=== PATIENT | female | born 1950 | race Caucasian/White ===

== ENCOUNTER 2018-04-26 11:00 | Outpatient (RCR) | payer MEDICARE, SELFPAY ==
--- NOTE | 2018-06-29 15:42 | COCO.CNN ---
Primary Reason for Visit Medical/Dental/Vision (DSMES (Visit date 04/26/18 3rd floor [facility] - CGM placement) Referral to Care Coordination Referral to Care Coordination: No Referral to Services: No - Referral From Referral From: PCP Care Plan - Plan of Care Assessment/Background: ASESSMENT: Karie comes today to begin 7-day CGM trial. Instructed on purpose of CGM therapy, which will display blood glucose trends, rates of change, and alert to hypo/hyperglycemia. . INTERVENTION: We have set the low-alarm for 80mg/dl and the high for 400mg/dl. She understands that bolus dosing should stll be based on finger-stick monitoring. Potential risks of therapy noted; and she is cautioned that acetaminophen products make results unreliable. Karie is in agreement to proceed; waiver signed. G4 sensor placed on R abdomen according to protocol. No bleeding or adverse effects noted. Counseled on daily site inspection and steps for recharging the robotics technologist. Discussed useful record keeping. She returns demo of required calibrations using the robotics technologist. Plan of Care: PLAN: Karie will wear the CGM for 7 days. She will record daily events on her paper log. She will return in 1wk for CGM removal and download. [facility] Self Management Goals: document events in paper log during the course of the CGM study. Calibrate CGM using 2 finger-stick BSs in 24hrs. Confidence Level (enter 1-10): 7
== END 2018-06-29 11:00 ==
LOC: COCO 11:00
PROVIDERS: PCP Family Medicine; Visit Provider Family Medicine
DX: E11.9 Type 2 diabetes mellitus without complications (principal)

== ENCOUNTER → 2018-06-01 19:01 | Outpatient (REF) | payer MEDICARE, SELFPAY ==
[2018-06-01 19:54] LABS: ALT 29 U/L (12-78); AST 30 U/L (15-37); Albumin 3.6 g/dL (3.4-5.0); Alkaline Phosphatase 159 U/L (46-116); Anion Gap 8.6 mmol/L (3-11); BUN 21 mg/dL (7-18); Bilirubin, Total 0.2 mg/dL (0.2-1.0); CO2 28.4 mmol/L (21.0-32.0); Calcium 9.1 mg/dL (8.5-10.1); Chloride 96 mmol/L (98-107); Estimated GFR 55.64 (mL/min/1.73m2); Glucose 290 mg/dL (70-100); Sodium 133 mmol/L (136-145); Total Protein 7.5 g/dL (6.4-8.2)
[2018-06-01 20:09] LABS: HGB 13.5 g/dL (12.0-15.5); Mean Corp. HGB Concentration 33.8 g/dL (32.0-36.0); Mean Corpuscular Hemoglobin 30.8 pg (27.0-33.0); Mean Corpuscular Volume 91.1 fL (80-95); Mean Platelet Volume 10.5 fL (8.0-11.0); Platelet Count 228 x1000/uL (130-400); RBC 4.39 m/cumm (4.00-5.20); RBC Distribution Width 12.6 % (11.7-14.6); White Blood Cell Count 9.61 k/cumm (4.4-10.8)
== END ==
LOC: NCHCN 19:01
PROVIDERS: PCP Family Medicine; Visit Provider Physician Assistant Medical
DX: E11.8 Type 2 diabetes mellitus with unspecified complications (principal); E03.9 Hypothyroidism, unspecified
CPT/HCPCS: 80053; 85027; 84443

== ENCOUNTER 2019-06-20 01:55 | Outpatient (CLI) | payer MEDICARE, SELFPAY ==
--- NOTE | 2019-06-20 12:50 | DI.RAD_ITS ---
SYMPTOMS/DIAGNOSIS: CHRONIC PAIN, G89.29 PELVIS AND BILATERAL HIPS: Five views. Comparison is 04/12/16. The hip joints are well maintained. The sacroiliac joints and symphysis pubis appear unremarkable. The bones are normally mineralized. Vascular calcifications are seen in the soft tissues. IMPRESSION: Negative bilateral hips. LUMBAR SPINE: AP, lateral and bilateral oblique views of the lumbar spine were obtained. There is normal alignment of the lumbar spine. No spondylolysis or spondylolisthesis is present. There is disc space narrowing seen at L1-L2 and L2-L3. There are endplate osteophytes throughout the lumbar spine, most marked from L1-L2 through L3-L4. There are degenerative changes of the facets, particularly at the L5-S1 level. No acute fractures or subluxations are present. There is atherosclerosis of the abdominal aorta with ectasia of the distal abdominal aorta. IMPRESSION: Moderately severe degenerative changes of the lumbar spine.
== END 2019-06-20 02:15 ==
PROVIDERS: PCP Family Medicine; Visit Provider Family Medicine
DX: M25.551 Pain in right hip (principal); M25.552 Pain in left hip; M54.5 Low back pain; M51.36 Other intervertebral disc degeneration, lumbar region; M47.816 Spondylosis without myelopathy or radiculopathy, lumbar region
CPT/HCPCS: 73521; 72110

== ENCOUNTER 2019-07-25 10:13 | Outpatient (REF) | payer MEDICARE, SELFPAY ==
[2019-07-25 21:27] LABS: HCT 37.8 % (36.0-46.0); HGB 12.6 g/dL (12.0-15.5); Mean Corp. HGB Concentration 33.3 g/dL (32.0-36.0); Mean Corpuscular Hemoglobin 30.1 pg (27.0-33.0); Mean Corpuscular Volume 90.2 fL (80-95); Platelet Count 275 x1000/uL (130-400); RBC 4.19 m/cumm (4.00-5.20); RBC Distribution Width 13.2 % (11.7-14.6); White Blood Cell Count 9.35 k/cumm (4.4-10.8)
[2019-07-25 21:46] LABS: ALT 28 U/L (14-59); AST 17 U/L (15-37); Albumin 3.6 g/dL (3.4-5.0); Alkaline Phosphatase 145 U/L (46-116); Anion Gap 9.2 mmol/L (3-11); BUN 18 mg/dL (7-18); Bilirubin, Total 0.4 mg/dL (0.2-1.0); CO2 27.8 mmol/L (21.0-32.0); CREATININE 1.11 mg/dL (0.55-1.02); Calcium 9.2 mg/dL (8.5-10.1); Chloride 96 mmol/L (98-107); Estimated GFR 49.18 (mL/min/1.73m2); Glucose 278 mg/dL (70-100); Potassium 4.2 mmol/L (3.5-5.1); Sodium 133 mmol/L (136-145); TSH (W/Ref FT4) 2.24 uIU/mL (0.36-3.74); Total Protein 7.3 g/dL (6.4-8.2)
[2019-07-25 21:55] LABS: Hemoglobin A1C 9.1 % (4.5-6.2)
== END 2019-07-25 10:33 ==
LOC: NCHCN 10:13
PROVIDERS: PCP Family Medicine; Visit Provider Family Medicine
DX: E11.9 Type 2 diabetes mellitus without complications (principal); E03.9 Hypothyroidism, unspecified; I10 Essential (primary) hypertension; Z86.2 Personal history of diseases of the blood and blood-forming organs and certain disorders involving the immune mechanism
CPT/HCPCS: 80053; 85027; 83036; 84443

== ENCOUNTER 2019-08-06 01:41 | Outpatient (CLI) | payer MEDICARE, SELFPAY ==
--- NOTE | 2019-08-06 09:10 | DI.MRI_ITS ---
EXAM: MR LUMBAR SPINE WO CLINICAL HISTORY: CHRONIC PAIN, G89.29, SPINAL STENOSIS OF LUMBAR REGION, M48.06. TECHNIQUE: Multiplanar multisequence MRI was performed. COMPARISON: MRI - LUMBAR SPINE WO CONTRAST from 09/13/2012 FINDINGS: Disc narrowing and broad-based disc osteophytes are again noted L1-2 and L2-3. There is bilateral neural foraminal narrowing as well as mild central canal stenosis at these levels. At L3-4, there is broad-based disc bulging and mild facet degenerative changes. There is mild neural foraminal narrow ing and mild central canal stenosis. At L4-5, there is broad-based disc bulging. There are facet deg enerative changes and ligamentous hypertrophy combining to produce mild central canal stenosis. Ther e is no significant neural foraminal narrowing. At L5-S1, there is mild disc bulging. There is no s ignificant central canal stenosis. There are small osteophytes and facet joint osteophytes on the ri ght side causing mild right neural foraminal narrowing. The conus medullaris is unremarkable. The ao rta is normal in diameter. There are degenerative signal changes in the marrow. IMPRESSION: Stable degenerative disc changes and facet degenerative changes throughout. There is bilateral neur al foraminal narrowing greatest at L1-2 and L2-3 and central canal stenosis which is greatest at L4, mild.
== END 2019-08-06 02:01 ==
PROVIDERS: PCP Family Medicine; Visit Provider Family Medicine
DX: M48.061 Spinal stenosis, lumbar region without neurogenic claudication (principal); G89.29 Other chronic pain; M51.37 Other intervertebral disc degeneration, lumbosacral region; M47.817 Spondylosis without myelopathy or radiculopathy, lumbosacral region
CPT/HCPCS: 72148

== ENCOUNTER 2020-03-24 01:10 | Outpatient (CLI) | payer MEDICARE, SELFPAY ==
--- NOTE | 2020-03-24 11:40 | DI.MAMMO_ITS ---
EXAM: MAMMO SCREENING CLINICAL HISTORY: SCREENING, Z12.39 TECHNIQUE: Mammograms were interpreted according to the usual protocol including computer analysis w [employer] CAD system, tomosynthesis and C-view imaging. COMPARISON: 2010 through 2013 FINDINGS: The breasts are composed of scattered fibroglandular densities, Breast Density category B. No suspicious masses or suspicious microcalcifications are seen. Vascular calcifications are inciden tally noted. No skin thickening or abnormal axillary lymph nodes are seen. There has been no significant change from prior exams. IMPRESSION: BI-RADS category 1, yearly screening mammography is recommended. Breast density category B, scattered fibroglandular densities.
== END 2020-03-24 01:30 ==
PROVIDERS: PCP Family Medicine; Visit Provider Family Medicine
DX: Z12.31 Encounter for screening mammogram for malignant neoplasm of breast (principal)
CPT/HCPCS: 77063; 77067

== ENCOUNTER 2020-06-09 16:14 | Outpatient (REF) | payer MEDICARE, SELFPAY ==
[2020-06-09 19:49] LABS: Hemoglobin A1C 10.6 % (3.8-5.6)
[2020-06-09 19:54] LABS: ALT 34 U/L (14-59); AST 24 U/L (15-37); Albumin 3.7 g/dL (3.4-5.0); Alkaline Phosphatase 173 U/L (46-116); Anion Gap 9.8 mmol/L (3-11); BUN 27 mg/dL (7-18); Bilirubin, Total 0.4 mg/dL (0.2-1.0); CO2 28.2 mmol/L (21.0-32.0); CREATININE 1.25 mg/dL (0.55-1.02); Calculated LDL 72 mg/dL (<100); Chloride 94 mmol/L (98-107); Cholesterol 175 mg/dL (<200); Estimated GFR 42.75 (mL/min/1.73m2); Glucose 340 mg/dL (74-106); HDL Cholesterol 40 mg/dL (40-60); Sodium 132 mmol/L (136-145); TSH (W/Ref FT4) 1.83 uIU/mL (0.36-3.74); Total Protein 7.3 g/dL (6.4-8.2); Triglyceride 319 mg/dL (<150)
== END 2020-06-09 16:34 ==
LOC: NCHCN 16:14
PROVIDERS: PCP Family Medicine; Visit Provider Family Medicine
DX: E11.9 Type 2 diabetes mellitus without complications (principal); E78.5 Hyperlipidemia, unspecified; I10 Essential (primary) hypertension; E03.9 Hypothyroidism, unspecified
CPT/HCPCS: 80053; 80061; 83036; 84443

== ENCOUNTER → 2020-07-13 10:48 | Outpatient (BNVA) | payer MEDICARE, SELFPAY | PROVIDERS: PCP Family Medicine; Referring Provider Family Medicine; Visit Provider Student in an Organized Health Care Education/Training Program | DX: M70.62 Trochanteric bursitis, left hip (principal) | CPT/HCPCS: 99203; 99214 ==

== ENCOUNTER 2020-09-11 11:12 | Outpatient (REF) | payer MEDICARE, SELFPAY ==
[2020-09-11 20:23] LABS: Anion Gap 9.7 mmol/L (3-11); BUN 24 mg/dL (7-18); CO2 28.3 mmol/L (21.0-32.0); CREATININE 1.01 mg/dL (0.55-1.02); Calcium 9.3 mg/dL (8.5-10.1); Chloride 97 mmol/L (98-107); Estimated GFR 54.51 (mL/min/1.73m2); Glucose 274 mg/dL (74-106); Sodium 135 mmol/L (136-145)
[2020-09-11 20:43] LABS: Hemoglobin A1C 9.6 % (<5.7)
== END 2020-09-11 11:32 ==
LOC: NCHCN 11:12
PROVIDERS: PCP Family Medicine; Visit Provider Family Medicine
DX: E11.9 Type 2 diabetes mellitus without complications (principal); N28.9 Disorder of kidney and ureter, unspecified; M54.16 Radiculopathy, lumbar region
CPT/HCPCS: 80048; 83036

== ENCOUNTER → 2020-09-14 10:07 | Outpatient (BNVA) | payer MEDICARE, SELFPAY | PROVIDERS: PCP Family Medicine; Referring Provider Family Medicine; Visit Provider Student in an Organized Health Care Education/Training Program | DX: M70.62 Trochanteric bursitis, left hip (principal); E11.69 Type 2 diabetes mellitus with other specified complication; I10 Essential (primary) hypertension | CPT/HCPCS: 20610; 99213; J1040 ==

== ENCOUNTER 2021-04-05 16:37 | Inpatient (IN) | payer MEDICARE, SELFPAY ==
[2021-04-05] VITALS (49 sets, daily range): BP systolic 94–181; BP diastolic 49–96; PULSE 73–83; RESP 12–28; TEMP 36.5–36.7; O2SAT 94–98
--- NOTE | 2021-04-05 16:30 | RT.EKG_ITS ---
APPROVED REPORT Exam: Resting ECG Reason for Exam: fall Patient Location: E HR:81 bpm ECG Measurements Heart Rate 81 AXIS KS 168 P 4 QRSd 119 QRS 15 QT 407 T 10 QTc 473 Conclusion Sinus rhythm...normal P axis, V-rate 60- 99 Probable left ventricular hypertrophy...(RaVL+SV3)xQRSd >300 Lateral infarct, age indeterminate...Q>35mS, T neg, V5-V6 I aVL I have reviewed and interpreted ECG and agree with software generated interpretation.
--- NOTE | 2021-04-05 16:30 | DI.RAD_ITS ---
Exam(s) XR CHEST 2V PA LATERAL EXAM: XR CHEST 2V PA LATERAL CLINICAL HISTORY: fall TECHNIQUE: 2D digital imaging was performed. COMPARISON: CR RIGHT SHOULDER COMPLETE from 02/07/2018 CR CHEST 2 VIEWS PA,LAT from 02/07/2018 FINDINGS: MEDIASTINUM: Normal. HEART: Normal. PULMONARY VASCULATURE: Normal. LUNGS: Stable areas of scarring are seen in the lungs best appreciated on the lateral view. No acute infiltrate is seen. PLEURAL SPACE: No pleural effusion or pneumothorax. There is stable elevation of the right hemidiaphr agm. BONE:Within normal limits for the patient's age. OTHER FINDINGS:Surgical clips are again seen in the right upper quadrant of the abdomen. IMPRESSION: 1. No acute pulmonary findings. 2. Stable scarring in the lung bases. DATA REPOSITORY: RADIATION DOSE DELIVERED:
--- NOTE | 2021-04-05 16:30 | DI.CT_ITS ---
Exam(s) CT HEAD WO EXAM: CT HEAD WO CLINICAL HISTORY: fall, struck head, anticoagulated. TECHNIQUE: Imaging Protocol: Axial computed tomography images with coronal and sagittal reformatted images were created and reviewed COMPARISON: No exams were available for comparison FINDINGS: Ventricles and Extra axial spaces: Normal in size and morphology for the patient's age. Hemorrhage: None. Cerebral parenchyma: There is an area of encephalomalacia in the left frontal lobe. No evidence of a n acute territorial infarct. There are areas of decreased attenuation in the white matter most consi stent with chronic microvascular ischemic disease. Midline shift: None. Brainstem/Cerebellum: Normal. Calvarium: Normal. Visualized Paranasal sinuses/Mastoids: Clear. Soft Tissues: Unremarkable. IMPRESSION: No acute intracranial process. RADIATION DOSE DELIVERED: 676.57mGy.cm Total DLP DATA REPOSITORY: All CT scans at this facility are submitted to the National Radiology Data Registry (NRDR) Dose Index Registry (DIR) with the [employer] (ACR). RADIATION OPTIMIZATION: All CT scans at this facility use at least one of these dose optimization te chniques: automated exposure control; mA and/or kV adjustment per patient size (includes targeted exa ms where dose is matched to clinical indication); or iterative reconstruction.
--- NOTE | 2021-04-05 16:48 | ED.GENADUL_ITS ---
Discharge Plan Disposition Patient Disposition: [facility] INPATIENT Condition: Fair Discharge Details Chief Complaint: GenMedical Clinical Impression: Ambulatory dysfunction, Trochanteric bursitis, left hip, Diabetes Admit Date/Time: 04/07/21 11:44 Admit Provider: Jaime Pollock Attending Provider: Jaime Pollock Primary Care Provider: Melodie Lay V ED Provider: Radha Mercer Discharge Instructions Activity:: Activity as Tolerated Equipment/Supplies:: Insulin and needles Diet:: Carb Counting Discharge Orders Discharge Orders: Discharge Order (Routine); Ordered 04/08/21 Ordered By: Ana Min Discharge Data Discharge Date/Time-TO BE ENTERED AT DEPARTURE: 04/05/21 21:52 Medical Decision Making Patient is a 70-year-old female brought in via EMS after multiple falls. Patient reports she fell last night and believes that she may have lost consciousness. States she subsequently fell twice today with no LOC. Unclear what is causing the falls. She denies any shortness of breath, palpitations, chest pain. States that she is otherwise feeling well. Patient lives with her . Past medical history pertinent for anemia, hypertension, diabetes, CVA, depression, hyperlipidemia, GERD, hypothyroidism, renal insufficiency, syncope with collapse. Per EMS report, patient's glucose was high. Patient does report that she had a recent change in her medications but this is fairly vague about this. Unclear when she last took any of her medications. Since that medication change finding base. Will contact primary care for further information. Patient is not noted to be tachypneic, short of breath, endorsing any active complaints. On exam, patient appears nontoxic. She is resting comfortably. She is noted to be hypertensive blood pressure 179/78. Vital signs otherwise within normal limits. I see no objective evidence of trauma on her head. Moving all of her extremities well. Lungs are clear. She does have some atrophy on the right hand. None noted in intraorally or elsewhere. This may be associated with blood pressure cuff being on that arm. Abdomen is benign. No murmurs rubs or gallops appreciated. No lower extremity edema, calves are soft and nontender. Pulses in all extremities. For further evaluation of both the multiple falls as well elevated glucose. Concern at this time for DKA, HHS, intracranial bleed, cardiovascular cause of multiple falls, metabolic disorder, infectious etiology versus other. Spoke with patient's , Leighton [phone]. He states that, she just went down. He reports she did not hit her head. He states that she had no LOC. He does not have further information to add, reports she has otherwise been well. EKG was obtained and reviewed by Dr. Godfrey. Patient is in a normal sinus rhythm with a rate of 81. No acute ischemic changes noted. FINDINGS: Lungs: Strands of atelectasis or fibrosis in lower lungs appears similar to 02/07/2018. Pleural spaces: Unremarkable. No pleural effusion. No pneumothorax. Heart/Mediastinum: Unremarkable. No cardiomegaly. Diaphragm: Elevated right hemidiaphragm. Bones/joints: Degenerative arthritis in the spine and shoulders. Intraperitoneal space: Surgical clips right upper quadrant. IMPRESSION: No appreciable change from 02/07/2018. Strands of atelectasis or fibrosis in the lower lungs FINDINGS: Brain: Area of encephalomalacia in the left frontal lobe consistent with old infarct. The degree of encephalomalacia has progressed since 07/24/2017 but the distribution is the same. Stable vague areas of low-density in the periventricular white matter both cerebral hemispheres. No intra-axial extra-axial mass or hemorrhage. Cerebral ventricles: No ventriculomegaly. Paranasal sinuses: Visualized sinuses are unremarkable. No fluid levels. Mastoid air cells: Visualized mastoid air cells are well aerated. Vasculature: Vascular calcifications. Bones/joints: Unremarkable. No acute fracture. Soft tissues: Unremarkable. IMPRESSION: 1. No acute findings 2. Progression of encephalomalacia in the left frontal lobe at site previous infarcts seen on Labs reviewed. No leukocytosis. Stable H&H. Sodium is low at 123 but secondary to patient's hyperglycemia, this does correct to 131. VBG was normal, no evidence to suggest DKA at the time. Will give the patient typically scheduled NovoLog and continue to monitor. Patient's glucose is down to 472. Attempted to ambulate the patient. She is able to ambulate but does need one test as she is slightly unsteady. 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 Consulted with Dr. Pollock who agrees to admission. Discussed plan at length witht epatient. She agrees to admission. HPI General Mode of arrival: EMS . Date/Time Provider Initiated Documentation: 04/05/21 17:04 . Limitations to Documentation: no limitations . Information obtained by: patient, family (spoke with ), EMS and RN notes reviewed . History of Present Illness 70 year old F presents to the emergency department with the chief complaint of falls, high glucose, described as moderate (fall x 3), with intensity rated at 1 (denies any pain currently). Patient started experiencing this day(s) (began last night) and it has been intermittent. No relieving factors improve symptom(s), No exacerbating factors reported . Patient notes syncope (believes she lost consciousness last night, remembers events today); denies chest pain, cough, diaphoresis, fever/chills, loss of appetite, nausea/vomiting, rash, shortness of breath and weakness. Patient did receive the following treatments prior to arrival, none Related Data Home Medications Medication Instructions Recorded Confirmed bupropion HCl [Wellbutrin XL] 150 mg PO DAILY tab-cap 07/12/17 04/05/21 calcium carbonate [Oyster Shell 500 mg PO BID tab-cap 07/12/17 09/14/20 Calcium 500] ferrous sulfate 325 mg PO DAILY tab-cap 07/12/17 04/05/21 hydrochlorothiazide 25 mg PO DAILY tab-cap 07/12/17 04/05/21 omeprazole magnesium [Prilosec OTC] 20 mg PO DAILY tab-cap 07/12/17 04/06/21 atorvastatin [Lipitor] 40 mg PO QPM #60 tab 07/27/17 04/05/21 multivitamin [Multiple Vitamins] 1 tab PO DAILY tab 07/27/17 09/14/20 aspirin 81 mg PO DAILY 09/04/19 04/05/21 cholecalciferol (vitamin D3) 1,000 unit PO BID 09/04/19 04/05/21 [Vitamin D3] clopidogrel [Plavix] 75 mg PO DAILY 09/04/19 04/05/21 ezetimibe [Zetia] 10 mg PO DAILY 09/04/19 04/05/21 gabapentin 300 mg PO TID 09/04/19 04/05/21 lisinopril 10 mg PO DAILY 09/04/19 04/05/21 diclofenac sodium 1 % topical gel 4 gm TP QID PRN 6 Days #100 gm 09/12/19 04/05/21 amitriptyline 100 mg tablet 150 mg PO QHS tab-cap 07/13/20 04/05/21 metformin [Glucophage] 1,000 mg PO BID 10/06/20 04/05/21 insulin glargine [Semglee U-100 25 unit SUBCUT BID #10 ml 04/08/21 Insulin] Previous Rx's Medication Instructions Recorded atorvastatin [Lipitor] 40 mg PO QPM #60 tab 07/27/17 multivitamin [Multiple Vitamins] 1 tab PO DAILY tab 07/27/17 diclofenac sodium 1 % topical gel 4 gm TP QID PRN 6 Days #100 gm 09/12/19 insulin glargine [Semglee U-100 25 unit SUBCUT BID #10 ml 04/08/21 Insulin] Allergies Allergy/AdvReac Type Severity Reaction Status Date / Time morphine Allergy Severe Hives Unverified 04/05/21 16:52 insulin detemir Allergy Intermediate Unverified 04/05/21 16:52 [From Levemir U-100 Insulin] Review of Systems Constitutional Constitutional: Reports as per HPI, Denies chills, Denies fever(s), Reports frequent falls, Denies headache(s), Denies lethargy and Denies poor appetite Eyes Eyes: Denies change in vision ENT Ears, Nose, Mouth, and Throat: Denies dizziness and Denies headache(s) Cardiovascular Cardiovascular: Reports as per HPI, Denies dyspnea and Denies dyspnea on exertion Respiratory Respiratory: Reports as per HPI, Denies chest congestion, Denies cough, Denies pain on inspiration, Denies pain with cough, Denies dyspnea, Denies dyspnea on exertion and Denies wheezing Gastrointestinal Gastrointestinal: Reports as per HPI, Denies abdominal pain, Denies diarrhea, Denies nausea and Denies vomiting Musculoskeletal Musculoskeletal: Reports as per HPI and Denies back pain Integumentary/Breasts Skin/Breast: Reports as per HPI and Denies rash Neurologic Neurologic: Reports as per HPI, Denies dizziness, Reports frequent falls, Denies headache(s), Denies localized weakness and Denies sensory deficit Allergic/Immunologic Allergic/Immunologic: Denies wheezing [facility] Medical History Carpal tunnel syndrome, bilateral Chronic pain Depression, major Diabetes mellitus adult onset Diastolic dysfunction Epicondylitis H/O fall H/O gastroesophageal reflux (GERD) Heart murmur, systolic History of anemia History of CVA (cerebrovascular accident) Hypothyroid Insomnia Lumbar radiculopathy Nonorganic sleep disorder Renal insufficiency Right shoulder pain Spinal stenosis Syncope and collapse Trochanteric bursitis, left hip Trochanteric bursitis, right hip Weakness of right arm Surgical History H/O: hysterectomy History of cholecystectomy Social History Smoking/Tobacco Use Status: Former Tobacco Use Smoking risk assessment performed?: Yes Alcohol Intake: never Drug use: Never Household members: spouse Housing: house Current gender identity: female Gayatri/Quaker: Methodist Do you feel safe at home: Yes Do you feel safe in your relationship?: Yes Exam Const General: cooperative, comfortable, no acute distress, well developed and ill appearing chronically Nutritional Appearance: well nourished and overweight Orientation: alert, awake and oriented x3 HENMT Head: normal to inspection Ears: hearing grossly normal bilaterally Mouth: moist mucous membranes Chest Chest: normal inspection of the chest, normal palpation of entire chest wall and no crepitus Resp Effort & Inspection: normal respiratory effort, able to speak in complete sentences and no respiratory distress Auscultation: clear to auscultation bilaterally, no rales, no rhonchi and no wheezes Cardio Rate: regular rate Rhythm: regular rhythm Heart Sounds: S1 normal and S2 normal GI Inspection: normal to inspection, no edema and non-distended Palpation: soft, no hepatosplenomegaly, not firm, no guarding, not rigid and nontender Auscultation: normal bowel sounds Back/Spine/Pelvis Thoracic/Lumbar Spine: thoracic and lumbar spine normal to inspection Skin General skin exam: no rashes or lesions noted Trauma: no lacerations or abrasions Neuro General: patient alert, patient awake and patient oriented x3 Cognition: normal cognition Speech: speech normal Gait: normal gait Extrem General: normal to inspection, capillary refill normal, no pedal edema, no calf tenderness and normal gait Psych Appearance: grossly normal and well kempt Mental Status: mental status grossly normal Speech and Movement: speech and movement normal
[2021-04-05 17:00] LABS: BE (Venous) 1 mmol/L (-2-3); HCO3 (Venous) 26 mmol/L (23-28); O2 Sat (Venous) 91 %; TCO2 (Venous) 24 mmol/L (24-29); pCO2 (Venous) 44 mmHg (41-51); pH (Venous) 7.38 (7.31-7.41); pO2 (Venous) 61 mmHg
[2021-04-05 17:09] LABS: Abs Immature Grans 0.04 10^3/uL (0.0-0.06); Absolute Basophil Count 0.04 10^3/uL (0.0-0.2); Absolute Eosinophil Count 0.12 10^3/uL (0.0-0.7); Absolute Lymphocyte Count 2.64 10^3/uL (1.2-3.4); Absolute Monocyte Count 0.66 10^3/uL (0.1-0.8); Absolute Neutrophil Count 7.29 10^3/uL (1.2-6.7); Basophils % 0.4; Eosinophils % 1.1; HCT 34.3 % (36.0-46.0); HGB 12.2 g/dL (11.2-15.7); Immature Grans % 0.4; Lymphocytes % 24.5; MCH 30.5 pg (27.0-33.0); MCHC 35.6 % (32.0-36.0); MCV 85.8 fL (80-95); MPV 9.7 fL (8.0-11.0); Monocytes % 6.1; Neutrophils % 67.5; Nucleated RBC 0 %; Platelet Count 197 10^3/uL (130-400); RDW 11.9 % (11.7-14.6); RDW-SD 37.2 fL; WBC 10.79 10^3/uL (4.4-10.8)
[2021-04-05 17:16] LABS: INR 1.1 (0.9-1.1); PTT Activated 22.7 sec (21.0-27.5); Prothrombin Time 10.9 sec (9.3-11.0)
[2021-04-05 17:26] LABS: ALT 34 U/L (14-59); AST 25 U/L (15-37); Albumin 3.5 g/dL (3.4-5.0); Alkaline Phosphatase 161 U/L (46-116); Anion Gap 7.8 mmol/L (3-11); BUN 20 mg/dL (7-18); Bilirubin, Total 0.4 mg/dL (0.2-1.0); CO2 27.2 mmol/L (21.0-32.0); CREATININE 1.2 mg/dL (0.55-1.02); Calcium 8.4 mg/dL (8.5-10.1); Chloride 88 mmol/L (98-107); Estimated GFR 44.68 (mL/min/1.73m2); Magnesium 1.8 mg/dL (1.8-2.4); Potassium 4.5 mmol/L (3.5-5.1); TSH (W/Ref FT4) 1.28 uIU/mL (0.36-3.74); Total Protein 7.4 g/dL (6.4-8.2)
[2021-04-05 17:29] LABS: Glucose 582 mg/dL (74-106); Sodium 123 mmol/L (136-145); Troponin I < 0.05 ng/mL (<0.06)
--- NOTE | 2021-04-05 17:40 | DI.VRAD_ITS ---
PROCEDURE INFORMATION: Exam: CT Head Without Contrast Exam date and time: 04/05/2021 4:38 PM Age: 70 years old Clinical indication: Injury or trauma; Blunt trauma (contusions or hematomas); Patient HX: Fall, struck head, anticoagulated TECHNIQUE: Imaging protocol: Computed tomography of the head without contrast. COMPARISON: CT HEAD WITHOUT STROKE PROTOCOL 07/24/2017 4:12 PM FINDINGS: Brain: Area of encephalomalacia in the left frontal lobe consistent with old infarct. The degree of encephalomalacia has progressed since 07/24/2017 but the distribution is the same. Stable vague areas of low-density in the periventricular white matter both cerebral hemispheres. No intra-axial extra-axial mass or hemorrhage. Cerebral ventricles: No ventriculomegaly. Paranasal sinuses: Visualized sinuses are unremarkable. No fluid levels. Mastoid air cells: Visualized mastoid air cells are well aerated. Vasculature: Vascular calcifications. Bones/joints: Unremarkable. No acute fracture. Soft tissues: Unremarkable. IMPRESSION: 1. No acute findings 2. Progression of encephalomalacia in the left frontal lobe at site previous infarcts seen on 07/24/2017 Dictated and Authenticated by: Terri Zelaya MD. Ordering:JOSE Garcia MD
--- NOTE | 2021-04-05 17:41 | DI.VRAD_ITS ---
PROCEDURE INFORMATION: Exam: XR Chest Exam date and time: 04/05/2021 4:38 PM Age: 70 years old Clinical indication: Injury or trauma; Fall; Blunt trauma (contusions or hematomas) TECHNIQUE: Imaging protocol: XR of the chest. Views: 2 views. COMPARISON: CR CHEST 2 VIEWS PA,LAT 02/07/2018 12:17 PM FINDINGS: Lungs: Strands of atelectasis or fibrosis in lower lungs appears similar to 02/07/2018. Pleural spaces: Unremarkable. No pleural effusion. No pneumothorax. Heart/Mediastinum: Unremarkable. No cardiomegaly. Diaphragm: Elevated right hemidiaphragm. Bones/joints: Degenerative arthritis in the spine and shoulders. Intraperitoneal space: Surgical clips right upper quadrant. IMPRESSION: No appreciable change from 02/07/2018. Strands of atelectasis or fibrosis in the lower lungs Dictated and Authenticated by: Terri Zelaya MD. Ordering:JOSE Garcia MD
[2021-04-05] MEDS: Insulin Aspart 100 UNITS/ML UNIT 50 UNITS SC (17:59)
[2021-04-05 18:11] LABS: Bilirubin Negative (Negative); Blood Trace-intact (Negative); Clarity Clear (Clear); Glucose 500 mg/dL (Negative); Ketones Negative (Negative); Leukocyte Esterase Negative (Negative); Nitrite Negative (Negative); Specific Gravity 1.015 (1.005-1.025); Urobilinogen 0.2 EU/dL (Up TO 0.2); pH 6.5 (5-8)
[2021-04-05 18:19] LABS: Bacteria Negative HPF (Negative); C & S Indicated? No; Casts Negative LPF (Negative); Crystals Negative HPF (Negative); Epithelial Cells Few HPF (Negative); Mucus Negative (Negative); RBC 0-2 HPF (0-2)
[2021-04-05 19:24] LABS: Anion Gap 8.9 mmol/L (3-11); BUN 17 mg/dL (7-18); CO2 28.1 mmol/L (21.0-32.0); Calcium 8.6 mg/dL (8.5-10.1); Chloride 92 mmol/L (98-107); Estimated GFR 55.14 (mL/min/1.73m2); Glucose 401 mg/dL (74-106); Potassium 3.7 mmol/L (3.5-5.1); Sodium 129 mmol/L (136-145)
[2021-04-05 19:34] LABS: Troponin I < 0.05 ng/mL (<0.06)
--- NOTE | 2021-04-05 20:39 | W.PM.HP.N ---
Date of service: 04/05/21 Time of Service: 20:39 Assessment and Plan Assessment and plan (1) Falling: Status: Acute Assessment and plan: Falling (does not sound like syncope, but will monitor out of abundance of caution). Likely multifactorial, but orthostasis one definite factor. This in turn may be due to meds and/or element perhaps of dehydration (secondary to hyperglycemia?). Will hold Amitriptyline (unknown if she is even taking, will check UDS) and Lisinopril. PT consult. DM: poorly controlled. Will give 25 units Lantus and cover with SS for now. History of Present Illness History of Present Illness Chief Complaint: falling Narrative: 70 female with h/o DM, h/o stroke 2017 manifesting with aphasia, and complete resolution thereafter. Comes in tonight with several episodes of falling over past few days. She is a very poor historian, but according to (per ER) who witnessed two spells, there was no LOC, simply a mechanical fall.In ER w/u of note for glucose 562, pH 7.38, urine negative for ketones, Na 129, K 3.7. Head CT shows old area left frontal encephalomalacia, somewhat progressed, unremarkable otherwise. CXR no acute findings and EKG WNL. Patient received 50 units Novolog in ER and 1L NS. Staff noted she required one person assist to ambulate. She is admitted for further management. Review of Systems All systems reviewed & are unremarkable except as noted in HPI and below PFSH Medical History Carpal tunnel syndrome, bilateral Chronic pain Depression, major Diabetes mellitus adult onset Diastolic dysfunction Epicondylitis H/O fall H/O gastroesophageal reflux (GERD) Heart murmur, systolic History of anemia History of CVA (cerebrovascular accident) Hypothyroid Insomnia Lumbar radiculopathy Nonorganic sleep disorder Renal insufficiency Right shoulder pain Spinal stenosis Syncope and collapse Trochanteric bursitis, left hip Trochanteric bursitis, right hip Weakness of right arm Surgical History H/O: hysterectomy History of cholecystectomy Social History Smoking/Tobacco Use Status: Former Tobacco Use Smoking risk assessment performed?: Yes Alcohol Intake: never Drug use: Never Household members: spouse Housing: house Current gender identity: female Gayatri/[employer]: [employer] Do you feel safe at home: Yes Do you feel safe in your relationship?: Yes Meds Allergies and Home Medications Allergies Allergy/AdvReac Type Severity Reaction Status Date / Time morphine Allergy Severe Hives Unverified 04/05/21 16:52 insulin detemir Allergy Intermediate Unverified 04/05/21 16:52 [From Levemir U-100 Insulin] Home Medications Medication Instructions Recorded Confirmed Type Lantus U-100 Insulin 45 units SUB-Q BID vial 07/12/17 09/14/20 History bupropion HCl [Wellbutrin XL] 150 mg PO DAILY tab-cap 07/12/17 04/05/21 History calcium carbonate [Oyster Shell 500 mg PO BID tab-cap 07/12/17 09/14/20 History Calcium 500] clotrimazole 45 g TOPICAL BID PRN script 07/12/17 09/14/20 History ferrous sulfate 325 mg PO DAILY tab-cap 07/12/17 04/05/21 History hydrochlorothiazide 25 mg PO DAILY tab-cap 07/12/17 04/05/21 History levothyroxine 50 mcg PO DAILY tab-cap 07/12/17 09/14/20 History omeprazole magnesium [Prilosec OTC] 20 mg PO BID tab-cap 07/12/17 04/05/21 History potassium chloride 10 meq PO DAILY tab-cap 07/12/17 09/14/20 History atorvastatin [Lipitor] 40 mg PO QPM #60 tab 07/27/17 04/05/21 Rx multivitamin [Multiple Vitamins] 1 tab PO DAILY tab 07/27/17 09/14/20 Rx insulin aspart U-100 [NovoLOG Vial] 20 units SQ BID 02/07/18 04/05/21 History insulin aspart U-100 [NovoLOG Vial] 50 units SQ DAILY 02/07/18 04/05/21 History aspirin 81 mg PO DAILY 09/04/19 04/05/21 History cholecalciferol (vitamin D3) 1,000 unit PO BID 09/04/19 04/05/21 History [Vitamin D3] clopidogrel [Plavix] 75 mg PO DAILY 09/04/19 04/05/21 History ezetimibe [Zetia] 10 mg PO DAILY 09/04/19 04/05/21 History gabapentin 300 mg PO TID 09/04/19 04/05/21 History lisinopril 10 mg PO DAILY 09/04/19 04/05/21 History metformin 1,000 mg PO BID 09/04/19 09/14/20 History oxycodone-acetaminophen [Percocet] 1 tab PO BID 09/04/19 09/14/20 History diclofenac sodium 1 % topical gel 4 gm TP QID PRN 6 Days #100 gm 09/12/19 04/05/21 Rx amitriptyline 100 mg tablet 150 mg PO QHS tab-cap 07/13/20 04/05/21 History diclofenac sodium 1 % topical gel 4 g TOPICAL QID #100 g 07/13/20 09/14/20 Rx naproxen 500 mg tablet 500 mg PO DAILY PRN tab 07/13/20 09/14/20 History bupropion HCl [Wellbutrin XL] 150 mg PO QAM 10/06/20 10/06/20 History clopidogrel [Plavix] 75 mg PO DAILY 10/06/20 10/06/20 History metformin [Glucophage] 1,000 mg PO BID 10/06/20 04/05/21 History insulin degludec [Tresiba 100 unit SUBCUT 04/05/21 History FlexTouch U-100] Exam Narrative Exam Narrative: Orthostatics by myself: supine 138/61, 79; standing 91/49, 80; 36.5, 25, 95% RA. HEENT atraumatic; neck supple; lungs clear; heart RRR w/o MRG; abdomen soft and NT; extremities w/o edema; neuro Ox3, motor 5/5, sensory intact light touch and vibration, Romberg negative, unable to take steps w/o assist Results Labs Result diagrams: 04/05/21 16:50 04/05/21 19:00 Labs: Laboratory Results - last 24 hr 04/05/21 04/05/21 04/05/21 16:50 16:50 16:50 WBC 10.79 RBC 4.00 Hgb 12.2 Hct 34.3 L MCV 85.8 MCH 30.5 MCHC 35.6 RDW 11.9 Plt Count 197 MPV 9.7 Immature Gran % 0.4 Neutrophils % 67.5 Lymphocytes % 24.5 Monocytes % 6.1 Eosinophils % 1.1 Basophils % 0.4 Nucleated RBC % 0 Absolute Neutrophils 7.29 H Absolute Lymphocytes 2.64 Absolute Monocytes 0.66 Absolute Eosinophils 0.12 Absolute Basophils 0.04 PT 10.9 INR 1.1 APTT 22.7 VBG pH VBG pCO2 VBG pO2 VBG HCO3 VBG Total CO2 VBG O2 Saturation VBG Base Excess Sodium 123 L* Potassium 4.5 Chloride 88 L Carbon Dioxide 27.2 Anion Gap 7.8 BUN 20 H Creatinine 1.2 H Estimated GFR/1.73 m2 44.68 Glucose 582 H* Calcium 8.4 L Magnesium 1.8 Total Bilirubin 0.4 AST 25 ALT 34 Alkaline Phosphatase 161 H Troponin I < 0.05 Total Protein 7.4 Albumin 3.5 TSH Urine Color Urine Clarity Urine pH Ur Specific [place] Urine Protein Urine Ketones Urine Blood Urine Nitrite Urine Bilirubin Urine Urobilinogen Ur Leukocyte Esterase Urine RBC Urine WBC Ur Epithelial Cells Urine Crystals Urine Bacteria Urine Casts Urine Mucus Ur Culture Indicated? Urine Glucose 04/05/21 04/05/21 04/05/21 16:50 16:50 17:50 WBC RBC Hgb Hct MCV MCH MCHC RDW Plt Count MPV Immature Gran % Neutrophils % Lymphocytes % Monocytes % Eosinophils % Basophils % Nucleated RBC % Absolute Neutrophils Absolute Lymphocytes Absolute Monocytes Absolute Eosinophils Absolute Basophils PT INR APTT VBG pH 7.38 VBG pCO2 44 VBG pO2 61 VBG HCO3 26 VBG Total CO2 24 VBG O2 Saturation 91 VBG Base Excess 1 Sodium Potassium Chloride Carbon Dioxide Anion Gap BUN Creatinine Estimated GFR/1.73 m2 Glucose Calcium Magnesium Total Bilirubin AST ALT Alkaline Phosphatase Troponin I Total Protein Albumin TSH 1.28 Urine Color Yellow Urine Clarity Clear Urine pH 6.5 Ur Specific [place] 1.015 Urine Protein 30 H Urine Ketones Negative Urine Blood Trace-intact H Urine Nitrite Negative Urine Bilirubin Negative Urine Urobilinogen 0.2 Ur Leukocyte Esterase Negative Urine RBC 0-2 Urine WBC 3-5 Ur Epithelial Cells Few Urine Crystals Negative Urine Bacteria Negative Urine Casts Negative Urine Mucus Negative Ur Culture Indicated? No Urine Glucose 500 H 04/05/21 04/05/21 19:00 19:00 WBC RBC Hgb Hct MCV MCH MCHC RDW Plt Count MPV Immature Gran % Neutrophils % Lymphocytes % Monocytes % Eosinophils % Basophils % Nucleated RBC % Absolute Neutrophils Absolute Lymphocytes Absolute Monocytes Absolute Eosinophils Absolute Basophils PT INR APTT VBG pH VBG pCO2 VBG pO2 VBG HCO3 VBG Total CO2 VBG O2 Saturation VBG Base Excess Sodium 129 L Potassium 3.7 Chloride 92 L Carbon Dioxide 28.1 Anion Gap 8.9 BUN 17 Creatinine 1.0 Estimated GFR/1.73 m2 55.14 Glucose 401 H D Calcium 8.6 Magnesium Total Bilirubin AST ALT Alkaline Phosphatase Troponin I < 0.05 Total Protein Albumin TSH Urine Color Urine Clarity Urine pH Ur Specific [place] Urine Protein Urine Ketones Urine Blood Urine Nitrite Urine Bilirubin Urine Urobilinogen Ur Leukocyte Esterase Urine RBC Urine WBC Ur Epithelial Cells Urine Crystals Urine Bacteria Urine Casts Urine Mucus Ur Culture Indicated? Urine Glucose Last Vital Signs Temp 36.5 C 04/05/21 16:45 Pulse 79 04/05/21 20:29 Resp 25 H 04/05/21 20:30 BP 94/49 L 04/05/21 20:29 Pulse Ox 95 04/05/21 20:30 COVID-19 Screening Have you, or household traveled for leisure in last 14 days?: No Had IN PERSON contact w/suspected or confirmed C-19 person: No
[2021-04-05 21:42] LABS: *AMPHETAMINES SCREEN URINE Negative (Negative); *BARBITURATES SCREEN URINE Negative (Negative); *BENZODIAZEPINES SCREEN URINE Negative (Negative); Cannabinoids THC Negative (Negative); Cocaine Screen,Urine Negative (Negative); METHADONE URINE SCREEN Negative (Negative); OPIATES URINE SCREEN Negative (Negative)
[2021-04-05 21:47] LABS: Tricyclic Antidepressants Positive (Negative)
[2021-04-05] MEDS: Insulin Glargine 300 UNITS/3 ML PEN 25 UNITS SC (22:55)
[2021-04-05] MEDS: Acetaminophen 325 MG TAB 650 MG PO (22:56)
[2021-04-06] VITALS (7 sets, daily range): BP systolic 117–179; BP diastolic 66–84; PULSE 68–81; RESP 14–20; TEMP 36.2–36.7; O2SAT 92–97
[2021-04-06] MEDS: oxyCODONE 5 MG TAB PO (02:25)
[2021-04-06] MEDS: Aspirin 81 MG CHEW PO (07:55)
--- NOTE | 2021-04-06 08:42 | PGE_ITS ---
Date of Service Date of service: 04/06/21 Time of Service: 08:42 Assessment and Plan Assessment and plan (1) Ambulatory dysfunction: Status: Acute Assessment and plan: referred to observation fall precautions PT/OT consult (2) Hypertension: Status: Acute Assessment and plan: continue lisinopril and monitor (3) Diabetes: Status: Acute Assessment and plan: carb controlled diet metformin on hold continue lower basal insulin while hospitalized with ss coverage as needed with meals, adjusting as needed. A1C 9.6 in aug 2020, will recheck. 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 (5) Depression: Status: Acute Assessment and plan: amitriptyline and wellbutrin placed on hold on admission, thought to be contributing to gait disturbance (6) Hyperlipidemia: Status: Acute Assessment and plan: continue atorvastatin (7) Discharge planning issues: Status: Acute Assessment and plan: case management is consulted patient is not open to home health services which would be extremely beneficial. She would also decline swing level rehab discussed with DR Yancey. Subjective Subjective Patient reports: no new complaints, tolerating liquids well, tolerating a regular diet and afebrile; denies shortness of breath Interval history since last seen: poor historian. denies c/o. awaiting PT consult Exam Const General: cooperative, comfortable, no acute distress and ill appearing (older appearing than stated age) chronically Nutritional Appearance: obese Orientation: alert, awake, oriented x3 and other (poor historian) [facility] Head: normal to inspection Ears: hearing grossly normal bilaterally Mouth: moist mucous membranes Teeth and gingiva: edentulous Chest Chest: normal inspection of the chest Resp Effort & Inspection: normal respiratory effort, able to speak in complete sentences and no respiratory distress Auscultation: clear to auscultation bilaterally, diminished lung sounds (bases bilaterally), no rales, no rhonchi and no wheezes Cardio Rate: regular rate Rhythm: regular rhythm GI Inspection: normal to inspection and non-distended Palpation: soft, not firm, no guarding and nontender Auscultation: normal bowel sounds Back/Spine/Pelvis Back: no CVA tenderness Thoracic/Lumbar Spine: thoracic and lumbar spine normal to inspection Skin General skin exam: no rashes or lesions noted Trauma: no lacerations or abrasions Neuro General: patient alert, patient awake and patient oriented x3 Cognition: abnormal cognition (mild impairment) Speech: speech normal Extrem General: normal to inspection and no pedal edema Psych Appearance: grossly normal Mental Status: mental status grossly normal Speech and Movement: speech and movement normal Objective Last Vital Signs Temp 36.2 C L 04/06/21 07:41 Pulse 69 04/06/21 07:41 Resp 14 04/06/21 07:41 BP 164/77 H 04/06/21 07:41 Pulse Ox 92 04/06/21 07:41 Laboratory Results - last 24 hr 04/05/21 04/05/21 04/05/21 16:50 16:50 16:50 WBC 10.79 RBC 4.00 Hgb 12.2 Hct 34.3 L MCV 85.8 MCH 30.5 MCHC 35.6 RDW 11.9 Plt Count 197 MPV 9.7 Immature Gran % 0.4 Neutrophils % 67.5 Lymphocytes % 24.5 Monocytes % 6.1 Eosinophils % 1.1 Basophils % 0.4 Nucleated RBC % 0 Absolute Neutrophils 7.29 H Absolute Lymphocytes 2.64 Absolute Monocytes 0.66 Absolute Eosinophils 0.12 Absolute Basophils 0.04 PT 10.9 INR 1.1 APTT 22.7 VBG pH VBG pCO2 VBG pO2 VBG HCO3 VBG Total CO2 VBG O2 Saturation VBG Base Excess Sodium 123 L* Potassium 4.5 Chloride 88 L Carbon Dioxide 27.2 Anion Gap 7.8 BUN 20 H Creatinine 1.2 H Estimated GFR/1.73 m2 44.68 Glucose 582 H* Calcium 8.4 L Magnesium 1.8 Total Bilirubin 0.4 AST 25 ALT 34 Alkaline Phosphatase 161 H Troponin I < 0.05 Total Protein 7.4 Albumin 3.5 TSH Urine Color Urine Clarity Urine pH Ur Specific [place] Urine Protein Urine Ketones Urine Blood Urine Nitrite Urine Bilirubin Urine Urobilinogen Ur Leukocyte Esterase Urine RBC Urine WBC Ur Epithelial Cells Urine Crystals Urine Bacteria Urine Casts Urine Mucus Ur Culture Indicated? Urine Glucose Urine Opiates Screen Urine Methadone Screen Ur Barbiturates Screen Ur Tricyclics Screen Ur Amphetamines Screen U Benzodiazepines Scrn Urine Cocaine Screen Ur THC Screen 04/05/21 04/05/21 04/05/21 16:50 16:50 17:50 WBC RBC Hgb Hct MCV MCH MCHC RDW Plt Count MPV Immature Gran % Neutrophils % Lymphocytes % Monocytes % Eosinophils % Basophils % Nucleated RBC % Absolute Neutrophils Absolute Lymphocytes Absolute Monocytes Absolute Eosinophils Absolute Basophils PT INR APTT VBG pH 7.38 VBG pCO2 44 VBG pO2 61 VBG HCO3 26 VBG Total CO2 24 VBG O2 Saturation 91 VBG Base Excess 1 Sodium Potassium Chloride Carbon Dioxide Anion Gap BUN Creatinine Estimated GFR/1.73 m2 Glucose Calcium Magnesium Total Bilirubin AST ALT Alkaline Phosphatase Troponin I Total Protein Albumin TSH 1.28 Urine Color Yellow Urine Clarity Clear Urine pH 6.5 Ur Specific [place] 1.015 Urine Protein 30 H Urine Ketones Negative Urine Blood Trace-intact H Urine Nitrite Negative Urine Bilirubin Negative Urine Urobilinogen 0.2 Ur Leukocyte Esterase Negative Urine RBC 0-2 Urine WBC 3-5 Ur Epithelial Cells Few Urine Crystals Negative Urine Bacteria Negative Urine Casts Negative Urine Mucus Negative Ur Culture Indicated? No Urine Glucose 500 H Urine Opiates Screen Urine Methadone Screen Ur Barbiturates Screen Ur Tricyclics Screen Ur Amphetamines Screen U Benzodiazepines Scrn Urine Cocaine Screen Ur THC Screen 04/05/21 04/05/21 04/05/21 17:50 19:00 19:00 WBC RBC Hgb Hct MCV MCH MCHC RDW Plt Count MPV Immature Gran % Neutrophils % Lymphocytes % Monocytes % Eosinophils % Basophils % Nucleated RBC % Absolute Neutrophils Absolute Lymphocytes Absolute Monocytes Absolute Eosinophils Absolute Basophils PT INR APTT VBG pH VBG pCO2 VBG pO2 VBG HCO3 VBG Total CO2 VBG O2 Saturation VBG Base Excess Sodium 129 L Potassium 3.7 Chloride 92 L Carbon Dioxide 28.1 Anion Gap 8.9 BUN 17 Creatinine 1.0 Estimated GFR/1.73 m2 55.14 Glucose 401 H D Calcium 8.6 Magnesium Total Bilirubin AST ALT Alkaline Phosphatase Troponin I < 0.05 Total Protein Albumin TSH Urine Color Urine Clarity Urine pH Ur Specific [place] Urine Protein Urine Ketones Urine Blood Urine Nitrite Urine Bilirubin Urine Urobilinogen Ur Leukocyte Esterase Urine RBC Urine WBC Ur Epithelial Cells Urine Crystals Urine Bacteria Urine Casts Urine Mucus Ur Culture Indicated? Urine Glucose Urine Opiates Screen Negative Urine Methadone Screen Negative Ur Barbiturates Screen Negative Ur Tricyclics Screen Positive A Ur Amphetamines Screen Negative U Benzodiazepines Scrn Negative Urine Cocaine Screen Negative Ur THC Screen Negative
[2021-04-06] MEDS: Ferrous Sulfate 325 MG TAB PO (08:58)
[2021-04-06] MEDS: Multivitamin TAB 1 TAB PO (08:58)
[2021-04-06] MEDS: Lisinopril 5 MG TAB 10 MG PO (08:58)
[2021-04-06] MEDS: Clopidogrel 75 MG TAB PO (08:59)
--- NOTE | 2021-04-06 09:06 | PDOC.CMIN ---
- If Service Date Differs Date of service: 04/06/21 Time of Service: 09:06 Care Management Initial Assess REASON FOR HOSPITALIZATION:: Falling PAST MEDICAL HISTORY/PAST SURGICAL HISTORY:: Medical History . Carpal tunnel syndrome, bilateral. Chronic pain. Depression, major. Diabetes mellitus. adult onset. Diastolic dysfunction. Epicondylitis. H/O fall. H/O gastroesophageal reflux (GERD). Heart murmur, systolic. History of anemia. History of CVA (cerebrovascular accident). Hypothyroid. Insomnia. Lumbar radiculopathy. Nonorganic sleep disorder. Renal insufficiency. Right shoulder pain. Spinal stenosis. Syncope and collapse. Trochanteric bursitis, left hip. Trochanteric bursitis, right hip. Weakness of right arm. Surgical History . H/O: hysterectomy. History of cholecystectomy PREVIOUS FUNCTIONAL STATUS/SOCIAL/FAMILY SUPPORTS:: Karie lives in a mobile home in [place], [place] with her Sreekanth. She had 2 children. She had a son who in a drowning accident 4 years ago and has a daughter who lives closeby and is supportive. She also has 2 grandchildren. 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 She uses a walker for ambulation and cares for her who had a stroke 8 years ago. CURRENT FUNCTIONAL STATUS:: Elida was sitting up in a chair when CM met with her. She shared that she has been falling 3-4 times a day for the past month and has no idea why. She denies dizziness or leg weakness. Elida denied the need for any services at home. She insisted that she and her take care of themselves. Her had a stroke 8 years ago and requires a lot of care, which Elida provides, and she requires a walker for ambulation. ADVANCE DIRECTIVES:: none on file Has patient been provided with info about the portal/API?: Yes Did the patient sign up for the portal?: No CODE STATUS:: Full Code INSURANCE COVERAGE / FINANCIAL ISSUES:: Medicare CURRENT HOME/COMMUNITY SERVICES/EQUIPMENT:: walker PRIMARY CARE PHYSICIAN:: Melodie Lay POTENTIAL DISCHARGE NEEDS:: Follow up with PCP and plan of care PATIENT/FAMILY EDUCATION NEEDS:: Review of discharge instructions, medications, follow up plan, activity, limitatons, Ask Me Three TRANSPORTATION:: via private vehicle with family PLAN:: Elida will likely be discharged home with no new services. A PT evaluation has been ordered but is not completed so recommendations have not been made.She would likely benefit from home health services if agreeable. Elida will follow up with her PCP and plan of care and transport with family. CM will continue to support Elida and assess for discharge planning needs.
[2021-04-06] MEDS: Omeprazole 20 MG CAPCR PO (09:14)
[2021-04-06] MEDS: Insulin Aspart 300 UNITS/3 ML PEN SC ×3 (09:49→17:01)
[2021-04-06] MEDS: Ezetimibe 10 MG TAB PO (09:49)
--- NOTE | 2021-04-06 10:18 | W.DIABETESNO ---
Date of service: 04/06/21 Time of Service: 09:30 Diabetes Note NOTE: Assessment: Karie is a 70/F w/ Hx Dm w/ BG 582 mg/dl at admission. Documentation reveals A1c 9.6 09/18. When interviewed by this RD regarding insulin and DM med regimen she was unable recount how much insulin and other Meds and when she takes them. Documentation shows home meds are 50 units novolog BID, 20 units novolog BID, 100 Units tresiba , 45 units lantus and 1000mg metformin BID. Noted: hx CVA w/ resloved aphsia. Noted: she is endentulous and reports no chew/swallow issues. CDM verified that she ordered a good breakfast and patient reports >75% intake. Karie will need further DM edu as she stabalizes and a f/u outpatient appointment to review insulin regimen, and self management. Will f/u w/ Hospitalist and care management to review possible options for further DM tx. Time Spent in Nutritional Counseling and Treatment: 10 minutes Face to Face
--- NOTE | 2021-04-06 12:46 | DI.US_ITS ---
APPROVED REPORT EXAM: Comprehensive 2D, Doppler, and color-flow Echocardiogram Patient Location: In-Patient Room/Bed: 209 Music Specialist: Lashell Barkley RDCS (AE) Indications: Frequent falls, CVA Other Information Study Quality: Fair Conclusion Left Ventricle : The left ventricle is normal size. The left ventricular ejection fraction is within the normal range. There is normal left ventricular wall thickness. There is normal LV segmental wall motion. LVEF is 55%. Diastolic function is indeterminate. Right Ventricle : Right ventricle is not well visualized. Right ventricular systolic function could n ot be assessed. The RVSP is 30.6 mmHg. Atria : The left atrium size is normal. The right atrium size is normal. Valves: There are no hemodynamically significant valvular lesions Great Vessels : The aortic root is normal in size. The ascending aorta is mildly dilated. Aortic arch is normal in caliber. IVC is normal in size and collapses >50% with inspiration. See remainder of study for further details. Wall motion Left Ventricle The left ventricle is normal size. The left ventricular ejection fraction is within the normal range. There is normal left ventricular wall thickness. There is normal LV segmental wall motion. Diastolic function is indeterminate. There is no ventricular septal defect visualized. LVEF is 55%. Right Ventricle Right ventricle is not well visualized. Right ventricular systolic function could not be assessed. Th e RVSP is 30.6 mmHg. Atria The left atrium size is normal. The right atrium size is normal. The interatrial septum is intact wit h no evidence for an atrial septal defect. Aortic Valve The Aortic valve is sclerotic. Aortic valve is trileaflet. There is no aortic valvular stenosis. No a ortic regurgitation is present. Mitral Valve Mild mitral annular calcification. No evidence of mitral valve stenosis. Trace mitral regurgitation. Tricuspid Valve The tricuspid valve is normal in structure. There is no tricuspid valve stenosis. Trace tricuspid reg urgitation. Pulmonic Valve The pulmonary valve is normal in structure. There is no pulmonic valvular stenosis. There is no pulmo josé valvular regurgitation. Great Vessels The aortic root is normal in size. The ascending aorta is mildly dilated. Aortic arch is normal in ca liber. IVC is normal in size and collapses >50% with inspiration. Pericardium There is no pericardial effusion. 2D Dimensions IVSD d PLAX 1.05 cm F: 0.6-1.0 LV Vol A2C d MOD 101.2 mL LVPW d PLAX 1.02 cm F: 0.6 - 1.0 LV Vol A4C d MOD 87.9 mL LVID d PLAX 4.43 cm F: 3.8 - 5.2 LA vol/ BSA A2C s A-L 24.5 mL/m2 LVDs 3.00 cm F: 2.2 - 3.5 LA vol/ BSA A4C s A-L 21.0 mL/m2 Ao Root d 3.05 cm F: 2.7 - 3.3 LA Vol/ BSA Biplane s A-L 23.3 mL/m2 RA Area A4C 8.53 cm2 LA Area A4C s MOD 14.99 cm2 RA Vol/ BSA A4C s A-L 9.8 mL/m2 LA Area A2C s MOD 16.65 cm2 Ao Asc Diam d 3.20 cm F: 2.3 - 3.1 LV EF A4C MOD 55.3 % LV EF Teichholz 60.2 % LV EF A2C MOD 55.1 % LVEF (Jacques's) 51.90 % F: 54 - 74 LV EF Biplane MOD 51.9 % LV Volume 73.91 mL F: 46 - 106 SV 49.17 mL LV Volume Index 41.52 mL/m2 F: 29 - 61 SV Index 27.55 mL/m2 LV Vol Biplane MOD 94.7 mL FS 31.85 % M-Mode TAPSE 2.56 cm (M/F) >1.7 LV Diastology MV E' medial 0.062 (>0.07 m/s) E/A Ratio 0.9 LV E/e MED 12.75 (<14) MV E Vmax 0.80 (0.4-1.3 m/s) MV E' lateral 0.048 (>0.1 m/s) MV A Vmax 0.90 (0.4-1.3 m/s) LV E/e LAT 16.70 (<14) MV E/A Ratio 0.84 MV E/E' medial 12.77 MV E/E' lateral 16.70 Aortic Valve LVOT Area 2.62 cm2 AoV Area Vmax 1.83 cm2 LVOT Vmax 1.00 m/s AoV Area/ BSA (Vmax) 1.03 cm2/m2 LVOT Mean Salazar. 0.66 m/s ROBERTO Mean Salazar. 1.61 cm2 LVOT Peak Grad 4.0 mmHg ROBERTO Mean Salazar. Index 0.90 cm2/m2 LVOT Mean Grad 2.0 mmHg LVOT VTI 0.180 m LVOT Diam s 1.80 cm AoV Vmax 1.43 m/s Velocity Ratio 0.69 AoV Mean Salazar. 1.08 m/s AoV Peak Grad 8.2 mmHg LVOT SV 47.30 mL AoV Mean Grad 5.0 mmHg AoV VTI 0.271 m AoV Area VTI 1.74 cm2 AoV Area/ BSA (VTI) 0.98 cm/m2 Mitral Valve MV DT 239 (160-240 msec) MV PHT 69 msec MV Area PHT 3.17 cm2 MV VTI 0.325 m MV VTI Annulus 0.334 m MV Area VTI 1.49 (4.0-6.0 cm2) Pulmonary Valve PV Vmax 1.20 (0.5-1.5 m/s) RVOT Peak Gr. 3.10 mmHg PV Peak Grad 5.8 mmHg RVOT Mean Gr. 1.55 mmHg PV Mean Grad 2.5 mmHg RVOT VTI 0.154 m PV VTI 0.165 m RVOT Vmax 0.88 m/s Tricuspid Valve TR Peak Grad 27.6 mmHg TR Vmax 2.63 m/s RA Pressure 3.00 mmHg RVSP (TR) 30.6 mmHg
[2021-04-06 14:09] LABS: Source Nasal/Nares
--- NOTE | 2021-04-06 14:55 | CHAPLAIN ---
Karie was up in her chair. She is quiet and told me that her is home, so she is concerned about him because he's had a stroke. Someone is providing care for him at home, she said. He won't be able to visit because of his stroke.
--- NOTE | 2021-04-06 17:38 | IN_ITS ---
Date of service: 04/06/21 Time of Service: 16:38 PT Notes Visit Reasons: FALLING,ORTHOSTATIC HYPOTENSIONS,HYPERGLYCEMIA Physical Therapy Inpatient Initial Evaluation Date: 04/06/2021 Referring Doctor: Jaime Pollock MD PT Orders: PT CONSULT: Eval/treat. Precautions: Fall. Standard. Activity as tolerated. Patient Profile/Admitting Diagnosis: Karie is a 70-year-old female with past medical history of spinal stenosis, lumbar radiculopathy, syncope, and collapse who presented to the ED on 04/05/2021 due to multiple falls. Patient is diagnosed with repeated falls which may be associated to orthostasis and/or dehydration. PMHX: Medical History Carpal tunnel syndrome, bilateral Chronic pain Depression, major Diabetes mellitus adult onset Diastolic dysfunction Epicondylitis H/O fall H/O gastroesophageal reflux (GERD) Heart murmur, systolic History of anemia History of CVA (cerebrovascular accident) Hypothyroid Insomnia Lumbar radiculopathy Nonorganic sleep disorder Renal insufficiency Right shoulder pain Spinal stenosis Syncope and collapse Trochanteric bursitis, left hip Trochanteric bursitis, right hip Weakness of right arm Surgical History H/O: hysterectomy History of cholecystectomy Social History/Home Situation: Karie lives with in a mobile home with one-step to enter. 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 Independent with all aspects of ADLs without an assistive ambulatory device. Equipment Owned/DME: 4 wheeled walker, front wheeled walker, single-point cane Subjective: Agreeable to PT consult. Denies neck pain, dizziness, chest pain throughout session. States that she mostly gets anxious and fearful of falling. She has not noted any assistive device despite the repeated falls. She reports that her legs just give way. She indicates that she has had at least 5 falls in the past year. Objective: General Observation: Telemetry monitoring in place. IV access in the right UEs. Mental Status: Alert and oriented as to person, place, time, and purpose. Able to pay attention, focus, and respond appropriately. Pain: 0/10 in ROM: Right Upper Extremity: Shoulder Flexion WFL. Shoulder abduction WFL. Shoulder ER/IR WFL. Elbow flexion WFL. Forearm pronation/supination WFL. Wrist flexion WFL. Opening and closing of hand WFL. Left Upper Extremity: Shoulder Flexion WFL. Shoulder abduction WFL. Shoulder ER/IR WFL. Elbow flexion WFL. Forearm pronation/supination WFL. Wrist flexion WFL. Opening and closing of hand WFL. Right Lower Extremity: Hip flexion WFL. Hip abduction WFL. Hip ER/IR WFL. Knee flexion WFL. Knee extension. Ankle dorsiflexion/eversion WFL. Ankle plantarflexion/inversion WFL. Left Lower Extremity: Hip flexion WFL. Hip abduction WFL. Hip ER/IR WFL. Knee flexion WFL. Knee extension. Ankle dorsiflexion WFL. Ankle plantarflexion WFL. Strength: Right Upper Extremity: Shoulder flexors 4/5. Shoulder abductors 4/5. Shoulder ER 4/5. Shoulder IR 4/5. Forearm pronators 4/5. Forearm supinators 4/5. Elbow flexors 5/5. Elbow extensors 5/5. Automatic Data Processing Planner weak but functional. Left Upper Extremity: Shoulder flexors 4/5. Shoulder abductors 4/5. Shoulder ER 4/5. Shoulder IR 4/5. Forearm pronators 4/5. Forearm supinators 4/5. Elbow flexors 5/5. Elbow extensors 5/5. Automatic Data Processing Planner weak but functional. Right Lower Extremity: Hip flexors 4-/5. Hip abductors 4-/5. Hip external rotators 4-/5. Hip internal rotators 4-/5. Knee flexors 5/5. Knee extensors 5/5. Ankle dorsiflexors/evertors 4-/5. Ankle plantarflexors/invertors 4-/5. Left Lower Extremity: Hip flexors 4-/5. Hip abductors 4-/5. Hip external rotators 4-/5. Hip internal rotators 4-/5. Knee flexors 5/5. Knee extensors 5/5. Ankle dorsiflexors/evertors 4-/5. Ankle plantarflexors/invertors 4-/5. Bed Mobility/Transfers: Supine to sit standby assist with HOB at 30 degrees Sit to stand contact-guard assist Stand to sit contact-guard assist Bedside to toilet contact-guard assist Bed to chair contact-guard assist Chair to bed contact-guard assist Gait: Distance of 140 feet requiring contact-guard assist assist using the front wheeled walker with full weightbearing. Patricia decreased. Step height decreas ed. Step length decreased. No LOB. Denies dizziness and pain. Balance: Static Sitting: Normal Dynamic Sitting: Normal Static Standing: Fair Dynamic Standing: Fair Special Tests: Mobility Limitations Standardized Measure [facility] AM-PAC 6 clicks Basic Mobility Inpatient Short Form: Raw Score: 18 CMS Score: 47% deficit 4-Stage Balance Test: Able to put feet together for 10 seconds. Failed semi- tandem, full tandem, and 1 legged stance tests. Informed Consent/Education: Patient was instructed in purpose of PT consult and plan of care and is agreeable to proceed with established PT POC to achieve personal goals. Assessment: B UE/LE strength within functional limits and symmetric. Verbalized fearfulness of falling and felt stable and comfortable with use of front-wheeled walker. Will require skilled services for balance retraining and regaining independent ambulation without an assistive device. Patient will benefit from home health PT services in order to progress mobility level using least restrictive assistive ambulatory device, assess home safety, identify additional equipment needs, and establish a functional maintenance program that will increase ability of patient to remain at home. Patient presents with clinical signs and symptoms consistent with current/admitting diagnoses that have resulted to mobility limitations, gait instability, generalized weakness, and impairment of motor control as demonstrated by the following impairment level findings: 1. Decreased strength to B hip major muscle groups 2. Impaired tanding balance 3. Impaired activity tolerance 4. Anxiety and fearfulness of falling Impairments are contributing to the following functional limitations: 1. Inability to safely ambulate without assistive device and physical assistance 2. Increase completion time for mobility ADL performance 3. Increased fall risk 4. Inability to negotiate steps alone safely 5. Inability to return to prior living environment at this time Patient is assessed as a 29840 moderate complexity based on the following: History: 70 [id number] with past medical history as indicated above Examination: Demonstrable impairment in strength, balance, and mobility level with underlying impairments and functional limitations as exhibited above as well as deficit score of 47% utilizing the [facility] Mobility Inpatient Short Form Presentation: Stable Decision Makin moderate complexity Goals: Goals X1 week 1. Supine-Sit independent 2. Sit-Supine independent 3. Sit-Stand independent 4. Stand-Sit independent 5. Bed-Chair independent 6. Chair-Bed independent 7. Independent gait on level surface with use of no assistive device for at least 300 feet without report of pain nor dyspnea 8. Independent stair negotiation while holding onto 1 rail for at least 3 steps without report of pain nor dyspnea 9. Independent with home exercise program 10. Good static and dynamic standing balance/tolerance Plan of Care/Treatment Plan: 1-2x/day, 7 days/week x 1 week. Plan of care has been reviewed with the WAREHOUSE PRODUCTION WORKER providing the service under Physical Therapy direction. Initiate Physical Therapy intervention for pain management as needed, strengthening, bed mobility, transfers, gait, stairs, balance training, and use of assistive device. DISCHARGE RECOMMENDATIONS: Patient will benefit from home health PT services in order to progress mobility level using least restrictive assistive ambulatory device, assess home safety, identify additional equipment needs, and establish a functional maintenance program that will increase ability of patient to remain at home. TREATMENT CODE/TIME: 72176 x 20 minutes, 06326 x 12 minutes beginning at 16:38 PM. Thank you for the opportunity to participate in the care of this patient. Azra Renee PT, DPT, CLT [facility] [place], [place]
[2021-04-06 18:39] LABS: Hemoglobin A1C 12.1 % (<5.7)
[2021-04-06] MEDS: Acetaminophen 325 MG TAB 650 MG PO (21:11)
[2021-04-06] MEDS: Atorvastatin 40 MG TAB PO (21:11)
[2021-04-06] MEDS: Insulin Glargine 300 UNITS/3 ML PEN 25 UNITS SC (21:12)
[2021-04-06 21:13] LABS: Glucose 424 mg/dL (74-106)
[2021-04-06 21:24] LABS: COVID-19 PCR Negative (Negative)
[2021-04-07] VITALS (8 sets, daily range): BP systolic 109–170; BP diastolic 68–83; PULSE 72–76; RESP 16–19; TEMP 36–36.6; O2SAT 93–100
[2021-04-07 07:00] LABS: Abs Immature Grans 0.04 10^3/uL (0.0-0.06); Absolute Basophil Count 0.04 10^3/uL (0.0-0.2); Absolute Eosinophil Count 0.17 10^3/uL (0.0-0.7); Absolute Lymphocyte Count 2.21 10^3/uL (1.2-3.4); Absolute Monocyte Count 0.48 10^3/uL (0.1-0.8); Absolute Neutrophil Count 4.85 10^3/uL (1.2-6.7); Basophils % 0.5; Eosinophils % 2.2; HCT 39.5 % (36.0-46.0); HGB 13.3 g/dL (11.2-15.7); Immature Grans % 0.5; Lymphocytes % 28.4; MCH 29.6 pg (27.0-33.0); MCHC 33.7 % (32.0-36.0); MPV 9.5 fL (8.0-11.0); Monocytes % 6.2; Neutrophils % 62.2; Nucleated RBC 0 %; Platelet Count 207 10^3/uL (130-400); RBC 4.49 10^6/uL (3.93-5.22); RDW 12.1 % (11.7-14.6); RDW-SD 39.2 fL; WBC 7.79 10^3/uL (4.4-10.8)
[2021-04-07 07:17] LABS: Anion Gap 7.7 mmol/L (3-11); BUN 21 mg/dL (7-18); CO2 27.3 mmol/L (21.0-32.0); CREATININE 0.9 mg/dL (0.55-1.02); Calcium 8.7 mg/dL (8.5-10.1); Chloride 98 mmol/L (98-107); Glucose 359 mg/dL (74-106); Potassium 4.2 mmol/L (3.5-5.1); Sodium 133 mmol/L (136-145)
[2021-04-07] MEDS: Omeprazole 20 MG CAPCR PO (08:05)
[2021-04-07] MEDS: Ezetimibe 10 MG TAB PO (08:05)
[2021-04-07] MEDS: Ferrous Sulfate 325 MG TAB PO (08:05)
[2021-04-07] MEDS: Aspirin 81 MG CHEW PO (08:05)
[2021-04-07] MEDS: Multivitamin TAB 1 TAB PO (08:05)
[2021-04-07] MEDS: Lisinopril 5 MG TAB 10 MG PO (08:05)
[2021-04-07] MEDS: Clopidogrel 75 MG TAB PO (08:05)
[2021-04-07] MEDS: Insulin Aspart 300 UNITS/3 ML PEN SC ×3 (08:05→16:44)
--- NOTE | 2021-04-07 08:25 | OTIE_ITS ---
Occupational Therapy Notes Inpatient Occupational Therapy Evaluation Date: 04/07/21 Referring Doctor:Kali Yacney MD OT Orders: Non Urgent Precautions: Standard, Full PATIENT PROFILE/ADMITTING DIAGNOSIS: Pt is a 70 year old female admitted to med surg for a dx of with diagnosis of hypothyroid, falling, transaminitis, anemia, hypertension, diabetes, HTN stroke due to emobilism, depression. Past Medical History: Medical History Carpal tunnel syndrome, bilateral Chronic pain Depression, major Diabetes mellitus adult onset Diastolic dysfunction Epicondylitis H/O fall H/O gastroesophageal reflux (GERD) Heart murmur, systolic History of anemia History of CVA (cerebrovascular accident) Hypothyroid Insomnia Lumbar radiculopathy Nonorganic sleep disorder Renal insufficiency Right shoulder pain Spinal stenosis Syncope and collapse Trochanteric bursitis, left hip Trochanteric bursitis, right hip Weakness of right arm Surgical History H/O: hysterectomy History of cholecystectomy SUBJECTIVE: Pt was sitting in chair when OT arrived, she states that she is (I) and feels that she is at her baseline level of function. OBJECTIVE: General Observation: Pleasant and agreeable to OT session. Mental Status: A&Ox4 Pain: no c/o pain ROM: RUE AROM WFL L UE AROM WFL STRENGTH: RUE 5/5 throughout LUE 5/5 throughout FUNCTIONAL MOBILITY/ADLS: Transfers (I) BATHING seated in chair (I) DRESSING sitting in chair Dressing UE (I) don and doffing hospital gown Dressing LE (I) don and doffing pants and socks GROOMING Able to (I) brush hair TOILETING on toilet (I) EATING (I) in the seated position BALANCE: Static sitting Normal Dynamic Sitting Normal Static Standing Normal Dynamic Standing Normal SPECIAL TESTS: Daily Activity Limitations Standardized Measure [facility] AM -PAC ?6 clicks? Daily Activity Inpatient Short Form: Raw score: 24 INFORMED CONSENT/EDUCATION: Pt instructed in purpose of OT Consult and plan of care. ASSESSMENT: Patient is a 70-year-old female referred to occupational therapy services with diagnosis of hypothyroid, falling, transaminitis, anemia, hypertension, diabetes, HTN stroke due to emobilism, depression. OT went to consult with pt who was able to perform her ADLs (I) without (A) noting that she is at her baseline level of function and not interested in services as she feels that she can continue to perform this (I). AMPAC score 24 Patient is assessed as a Low 34759 complexity based on the following: History: see above Examination: see functional limitations as noted above Presentation: evolving Decision Making: AMPAC score 24 GOALS N/A PLAN OF CARE/TREATMENT PLAN: Discharge from skilled OT services. DISCHARGE RECOMMENDATIONS Home when medically cleared per MD. TREATMENT TIME/MINUTES/CODES 83511, 00423, 15 minutes (08:25) Cami Pérez OTR/L [facility]
--- NOTE | 2021-04-07 09:14 | PDOC.CMPRO ---
- If Service Date Differs Date of service: 04/07/21 Time of Service: 09:14 Care Management Progress Note S/O: Karie was sitting up in a chair when CM met with her. She was pleasant and stated that she is feeling much better. Per PT, Elida did much better today when working with them. She continues to refuse home health services or SNF placement but is agreeable to staying in the hospital another day. She will continue to work with PT and with the diabetes educators. A: Karie is a 70 year old woman admitted on 04/05/21 with hyperglycemia and falling P:Elida will likely be discharged home with no new services. Home health is recommended but she is not amenable to that plan. Elida will follow up with her PCP and plan of care and transport with family. CM will continue to support Elida and assess for discharge planning needs.
--- NOTE | 2021-04-07 11:37 | PDOC.CMPRO ---
- If Service Date Differs Date of service: 04/07/21 Time of Service: 11:37
[2021-04-07] MEDS: Insulin Glargine 300 UNITS/3 ML PEN 25 UNITS SC ×2 (11:45→20:02)
--- NOTE | 2021-04-07 12:05 | PT.INTREAT ---
Date of service: 04/07/21 Time of Service: 10:15 PT Notes Visit Reasons: FALLING,ORTHOSTATIC HYPOTENSIONS,HYPERGLYCEMIA Inpatient Physical Therapy Treatment Note [facility] Date: 04/07/2021 PRECAUTIONS: Fall SUBJECTIVE: Karie is pleasant and agreeable to participating in PT. She reports that she does not know why she keeps falling at home, but she is feeling better today. OBJECTIVE: PAIN: No c/o pain BED MOBILITY/TRANSFERS Supine-sit: I with HOB flat Sit-supine: I with HOB flat Sit-stand: I Stand-sit: I Bed-Chair: S Chair-bed: S GAIT Assistive Device: FWW Weight bearing: Full Assist: S Distance: 200' in a.m.; 350' in p.m. THEREX: Patient was instructed in a standing LE strengthening program, as per flow sheet. TOILETING: Patient toileted independently. ASSESSMENT: Patient tolerated session well, demonstrating independence with bed mobility and transfers, requiring supervision only for gait training at this time. PLAN: Continue with gait training and strengthening for improved activity tolerance and safety with ambulation. TREATMENT CODE/TIME: Session 1: 30 minutes; 06235, 87925 (10:15) Session 2: 10 minutes; 76629 (14:25)
[2021-04-07 12:20] LABS: Glucose 408 mg/dL (74-106)
--- NOTE | 2021-04-07 14:55 | W.PM.PROGNOT ---
Date of Service Date of service: 04/07/21 Time of Service: 14:55 Assessment and Plan Assessment and plan (1) Ambulatory dysfunction: Status: Acute Assessment and plan: referred to observation fall precautions PT/OT consult (2) Hypertension: Status: Acute Assessment and plan: continue lisinopril and monitor (3) Diabetes: Status: Acute Assessment and plan: carb controlled diet metformin on hold will increase basal insulin to 25 units BID with ss coverage as needed with meals, adjusting as needed. A1C 9.6 in aug 2020, recheck shows 12.1 patient admits she does not like using insulin pens, would like to go back to vials diabetes education. 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 (5) Depression: Status: Acute Assessment and plan: amitriptyline and wellbutrin placed on hold on admission, thought to be contributing to gait disturbance (6) Hyperlipidemia: Status: Acute Assessment and plan: continue atorvastatin (7) Discharge planning issues: Status: Acute Assessment and plan: case management is consulted patient is not open to home health services which would be extremely beneficial. She also declines swing level rehab. her blood sugars have been poorly managed and we hare adjusting basal insulin. will change to acute status for medication adjustment with close monitoring and patient education about insulin administration and diet. anctipate discharge tomorrow. discussed with DR Yancey. Subjective Subjective Patient reports: no new complaints, feels better, tolerating liquids well, tolerating a regular diet and afebrile Interval history since last seen: blood sugars poorly managed Exam Const General: cooperative, comfortable, no acute distress and ill appearing (older appearing than stated age) chronically Nutritional Appearance: obese Orientation: alert, awake, oriented x3 and other (poor historian) [facility] Head: normal to inspection Ears: hearing grossly normal bilaterally Mouth: moist mucous membranes Teeth and gingiva: edentulous Chest Chest: normal inspection of the chest Resp Effort & Inspection: normal respiratory effort, able to speak in complete sentences and no respiratory distress Auscultation: clear to auscultation bilaterally, diminished lung sounds (bases bilaterally), no rales, no rhonchi and no wheezes Cardio Rate: regular rate Rhythm: regular rhythm GI Inspection: normal to inspection and non-distended Palpation: soft, not firm, no guarding and nontender Auscultation: normal bowel sounds Back/Spine/Pelvis Back: no CVA tenderness Thoracic/Lumbar Spine: thoracic and lumbar spine normal to inspection Skin General skin exam: no rashes or lesions noted Trauma: no lacerations or abrasions Neuro General: patient alert, patient awake and patient oriented x3 Cognition: abnormal cognition (mild impairment) Speech: speech normal Extrem General: normal to inspection and no pedal edema Psych Appearance: grossly normal Mental Status: mental status grossly normal Speech and Movement: speech and movement normal Objective Last Vital Signs Temp 36.0 C L 04/07/21 11:14 Pulse 75 04/07/21 11:14 Resp 19 04/07/21 11:14 BP 160/80 H 04/07/21 11:14 Pulse Ox 93 04/07/21 11:14 Laboratory Results - last 24 hr 04/05/21 04/06/21 04/06/21 16:50 14:00 20:56 WBC RBC Hgb Hct MCV MCH MCHC RDW Plt Count MPV Immature Gran % Neutrophils % Lymphocytes % Monocytes % Eosinophils % Basophils % Nucleated RBC % Absolute Neutrophils Absolute Lymphocytes Absolute Monocytes Absolute Eosinophils Absolute Basophils Sodium Potassium Chloride Carbon Dioxide Anion Gap BUN Creatinine Estimated GFR/1.73 m2 Glucose 424 H Hemoglobin A1c 12.1 H Calcium SARS-CoV-2 (PCR) Negative 04/07/21 04/07/21 04/07/21 06:10 06:10 12:00 WBC 7.79 RBC 4.49 Hgb 13.3 Hct 39.5 MCV 88.0 MCH 29.6 MCHC 33.7 RDW 12.1 Plt Count 207 MPV 9.5 Immature Gran % 0.5 Neutrophils % 62.2 Lymphocytes % 28.4 Monocytes % 6.2 Eosinophils % 2.2 Basophils % 0.5 Nucleated RBC % 0 Absolute Neutrophils 4.85 Absolute Lymphocytes 2.21 Absolute Monocytes 0.48 Absolute Eosinophils 0.17 Absolute Basophils 0.04 Sodium 133 L Potassium 4.2 Chloride 98 Carbon Dioxide 27.3 Anion Gap 7.7 BUN 21 H Creatinine 0.9 Estimated GFR/1.73 m2 >= 60.00 Glucose 359 H 408 H Hemoglobin A1c Calcium 8.7 SARS-CoV-2 (PCR)
--- NOTE | 2021-04-07 15:58 | PHA.REVIEW ---
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 (Acute) Depression (Acute) Hyperlipidemia (Acute) morphine Allergy (Severe, Unverified 04/05/21 16:52) Hives insulin detemir [From Levemir U-100 Insulin] Allergy (Intermediate, Unverified 04/05/21 16:52) Resuscitation Status Full Code Height 5 ft 1 in Weight 79.6 kg - Renal Dosing Renal Dosing: BUN 21 mg/dL (7-18) H 04/07/21 06:10 Creatinine 0.9 mg/dL (0.55-1.02) 04/07/21 06:10 Medications needing adjustments: Reviewed List of meds needing interventions: meds ok - Anticoagulation Anticoagulation: Hgb 13.3 g/dL (11.2-15.7) 04/07/21 06:10 Hct 39.5 % (36.0-46.0) 04/07/21 06:10 Plt Count 207 10^3/uL (130-400) 04/07/21 06:10 INR 1.1 (0.9-1.1) 04/05/21 16:50 Creatinine 0.9 mg/dL (0.55-1.02) 04/07/21 06:10 DVT Prohphylaxis: Reviewed Medications: Aspirin (falling, orthostatic hypotension) - Opiate Usage Evaluate Pain Scale/Pains Meds: N/A Scheduled Bowel Reg ordered if on Opiates?: No - Relevant Labs Sodium 133 mmol/L (136-145) L 04/07/21 06:10 Potassium 4.2 mmol/L (3.5-5.1) 04/07/21 06:10 Chloride 98 mmol/L (98-107) 04/07/21 06:10 Magnesium 1.8 mg/dL (1.8-2.4) 04/05/21 16:50 Electrolytes, C-Reactive P, ESR: Reviewed - DM Control DM Control: Glucose 408 mg/dL (74-106) H 04/07/21 12:00 Hemoglobin A1c 12.1 % (<5.7) H 04/05/21 16:50 Finger Stick Blood Glucose 456 Finger Stick Blood Glucose 456 Finger Stick Blood Glucose 456 Finger Stick Blood Glucose 456 Finger Stick Blood Glucose 359 Insulin Dosing: Reviewed (adjusting insulin regmin -- current at glargine 25u BID with resistant sliding scale aspart) - Heart Failure/KS Heart Failure/KS: Troponin I < 0.05 ng/mL (<0.06) 04/05/21 19:00 - BP Control BP Control: Blood Pressure [Standing] 109/68 Blood Pressure [Supine] 170/80 Blood Pressure 158/76 Blood Pressure 160/80 Blood Pressure 170/80 - Qtc Review If Elevated: Reviewed List meds needing interventions: QTc 473 on admission - IV to PO Switch IV Medications: Reviewed - Home Meds Home Med List reviewed: Reviewed Relevent Home Meds Not ordered & why?: amitriptyline and bupropion held upon admission - thought to be contributing to gait disturabance, tresiba prescribed recently in place of lantus; gabapentin last filled on 12/31 for 100mg caps #90 with titration instructions - unclear if patient has titrated all the way up to 300mg TID yet - no other rx has been filled since, clopidogrel last filled 2/3 for 90 days - Current meds Current Medication Order Review: Reviewed (lantus currently at 25u BID, was using 45u BID at home) - Comments Comments/Follow Ups: monitor BG/FS, BMP
[2021-04-07] MEDS: Atorvastatin 40 MG TAB PO (20:01)
[2021-04-08] MEDS: Acetaminophen 325 MG TAB 650 MG PO (03:02)
[2021-04-08 03:47] VITALS: BP 151/80; PULSE 79; RESP 17; TEMP 36.3; O2SAT 96
[2021-04-08 07:00] VITALS: PULSE 74
[2021-04-08] MEDS: Multivitamin TAB 1 TAB PO (08:06)
[2021-04-08] MEDS: Ferrous Sulfate 325 MG TAB PO (08:06)
[2021-04-08] MEDS: Omeprazole 20 MG CAPCR PO (08:06)
[2021-04-08] MEDS: Clopidogrel 75 MG TAB PO (08:06)
[2021-04-08] MEDS: Normal Saline Flush 10 ML SYR IVP (08:06)
[2021-04-08] MEDS: Lisinopril 5 MG TAB 10 MG PO (08:06)
[2021-04-08] MEDS: Ezetimibe 10 MG TAB PO (08:06)
[2021-04-08] MEDS: Aspirin 81 MG CHEW PO (08:06)
[2021-04-08] MEDS: Insulin Aspart 300 UNITS/3 ML PEN SC ×2 (08:07→11:58)
[2021-04-08] MEDS: Insulin Glargine 300 UNITS/3 ML PEN 25 UNITS SC (08:08)
--- NOTE | 2021-04-08 08:15 | CMDISCH_ITS ---
- If Service Date Differs Date of service: 04/08/21 Time of Service: 13:11 LACE Index Scoring Tool - Questions: Length of Stay (in days): 3 Acuity (Admit via E.D.?): Yes Comorbidities: Diabetes w/o Complication E.D. Visits: 1 - Answers: Total Score: 8 Risk of Readmission: Low Risk Care Management Discharge Reason for Hospitalization: Falling Discharge Plan: Karie will return home when ready per MD as she is not agreeable to increased services as recommended at this time. She will transport via private vehicle with [facility], coordinated by this development writer. Patient/Family Education Needs: Review discharge instructions, discuss Ask Me Three. Services Needed at Discharge: Transportation ([facility])
[2021-04-08 08:18] VITALS: BP 133/79; PULSE 74; RESP 17; TEMP 36.5; O2SAT 94
--- NOTE | 2021-04-08 11:08 | DSE_ITS ---
Date of service: 04/08/21 Time of Service: 11:08 DS: Diagnosis Discharge Diagnosis (1) Ambulatory dysfunction: Status: Acute Asessment and Plan: physical therapy feels she is safe for discharge to home and in demonstrating independence with transfers and ambulation (2) Hypertension: Status: Acute (3) Diabetes: Status: Acute Asessment and Plan: poorly controlled. A1C 12.1 states she can't use the insulin pens and wants to go back to the vials. will change her to lantus 25 units bid diabetes education, should f/u outpatient with pcp for further monitoring and management as she refuses home health. 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 per pharmacy review she has not filled since november 2020. unclear if it was discontinued for patient stopped on her own or taking periodically. she is able to tell me for certain. (5) Depression: Status: Acute Asessment and Plan: antidepressants were held on admission d/t ambulatory dysfunction. will defer to outpatient provider (6) Hyperlipidemia: Status: Acute Asessment and Plan: has been filling prescription Discharge Plan Disposition Patient Disposition: HOME Condition: Fair Discharge Details Reason For Visit: FALLING,ORTHOSTATIC HYPOTENSIONS,HYPERGLYCEMIA Admit Date/Time: 04/07/21 11:44 Admit Provider: Jaime Pollock Attending Provider: Jaime Pollock Primary Care Provider: Melodie Lay V Hospital Course Hospital Course: This is a 70 year old female with history of DM, stroke in 2017 manifesting with aphasia, and complete resolution thereafter. Comes to the ED at [facility] with several episodes of falling over past few days. She is a very poor historian, but according to (per ER) who witnessed two spells, there was no LOC, simply a mechanical fall. ED evaluation noted glucose 562, pH 7.38, urine negative for ketones, Na 129, K 3.7. Head CT shows old area left frontal encephalomalacia, somewhat progressed, unremarkable otherwise. CXR no acute findings and EKG WNL. Patient received 50 units Novolog in ER and 1L NS. Staff noted she required one person assist to ambulate. She was admitted to med/surg under hospitalist for further management. A hemoglobin A1C was 12.1 and she met with senior health educator. it was later revealed that she is unable to manage the new insulin pens and she is requesting to get the vials back as she states she can manage those. she declines home health nursing to assist with ongoing diabetes education and insulin administration. I did reach out to her pcp to discuss changes but she is not available till MondayApril 13, we will forward this note and I will attempt to call Monday when I return as well. This patient is certainly at risk for ongoing poor diabetes control d/t non compliance and mild cognitive impairment. She has been working with physical therapy and has progressed such that they feel she is safe for independent discharge. again, she adamantly declines home health services including ongoing PT/OT. discharge discussed with Dr Yancey Home Meds and New Rx's Prescriptions: New Semglee U-100 Insulin 100 unit/mL solution 25 unit subcut BID Qty: 10 RF: 0 Continued metformin [Glucophage] 1,000 mg Tablet 1,000 mg PO BID RF: 0 clopidogrel [Plavix] 75 mg Tablet 75 mg PO DAILY RF: 0 aspirin 81 mg Tablet,Chewable 81 mg PO DAILY RF: 0 ezetimibe [Zetia] 10 mg Tablet 10 mg PO DAILY RF: 0 cholecalciferol (vitamin D3) [Vitamin D3] 1,000 unit (25 mcg) Tablet 1,000 unit PO BID RF: 0 lisinopril 5 MG tablet 10 mg PO DAILY RF: 0 gabapentin 300 mg Capsule 300 mg PO TID RF: 0 diclofenac sodium 1 % gel 4 gm TP QID PRN (Reason: back pain) 6 Days Qty: 100 RF: 11 calcium carbonate [Oyster Shell Calcium 500] 500 MG tablet 500 mg PO BID RF: 0 hydrochlorothiazide 25 MG tablet 25 mg PO DAILY RF: 0 ferrous sulfate 325 MG tablet,delayed release (DR/EC) 325 mg PO DAILY RF: 0 bupropion HCl [Wellbutrin XL] 150 MG tablet extended release 24 hr 150 mg PO DAILY RF: 0 omeprazole magnesium [Prilosec OTC] 20 MG tablet,delayed release (DR/EC) 20 mg PO DAILY RF: 0 amitriptyline 100 mg tablet 150 mg PO QHS RF: 0 multivitamin [Multiple Vitamins] 1 TAB tablet 1 tab PO DAILY RF: 0 atorvastatin [Lipitor] 40 MG tablet 40 mg PO QPM Qty: 60 RF: 0 Discontinued Tresiba FlexTouch U-100 100 unit/mL (3 mL) insulin pen 45 unit SUBCUT BID RF: 0 insulin aspart U-100 [Novolog U-100 Insulin aspart] 100 UNITS/ML solution 50 units SQ DAILY RF: 0 insulin aspart U-100 [Novolog U-100 Insulin aspart] 100 UNITS/ML solution 20 units SQ BID RF: 0 Discharge Instructions Instructions: Type 2 Diabetes Management for Adults (ED) Additional Instructions: Your insulin has been changed to vials at your request as you report difficulty with using insulin pens. you should check your blood sugars before meals and log to bring to follow up appointment. you will take the long acting insulin twice daily, this will be adjusted by your primary care provider as needed. resume the rest of your medication as previously prescribed. It is was recommended that you have home health but you declined. please notify your primary care provider if you change your mind. Stand Alone Forms: Nursing Discharge Form Referrals: Melodie Lay MD [Primary Care Provider] - 04/20/21 2:45 pm Activity:: Activity as Tolerated Equipment/Supplies:: Insulin and needles Diet:: Carb Counting Discharge Orders Discharge Orders: Discharge Order (Routine); Ordered 04/08/21 Ordered By: Ana Min DS: Summary Time Spent with Patient providing and/or coordinating discharge services: Greater than 30 minutes Status at Discharge Functional status at discharge: independent ambulation Overall status at discharge: patient is progressing back to baseline Mental Status: mental status grossly normal Speech and Movement: speech and movement normal Mood: congruent mood Affect: normal affect Exam Const General: cooperative, comfortable, no acute distress and ill appearing (older appearing than stated age) chronically Nutritional Appearance: obese Orientation: alert, awake, oriented x3 and other (poor historian) [facility] Head: normal to inspection Ears: hearing grossly normal bilaterally Mouth: moist mucous membranes Teeth and gingiva: edentulous Chest Chest: normal inspection of the chest Resp Effort & Inspection: normal respiratory effort and no respiratory distress Auscultation: clear to auscultation bilaterally, diminished lung sounds (bases bilaterally), no rales, no rhonchi and no wheezes Cardio Rate: regular rate Rhythm: regular rhythm GI Inspection: normal to inspection and non-distended Palpation: soft, not firm, no guarding and nontender Auscultation: normal bowel sounds Back/Spine/Pelvis Back: no CVA tenderness Thoracic/Lumbar Spine: thoracic and lumbar spine normal to inspection Skin General skin exam: no rashes or lesions noted Trauma: no lacerations or abrasions Neuro General: patient alert, patient awake and patient oriented x3 Cognition: abnormal cognition (mild impairment) Speech: speech normal Extrem General: normal to inspection and no pedal edema Psych Appearance: grossly normal Mental Status: mental status grossly normal Speech and Movement: speech and movement normal Mood: congruent mood Affect: normal affect DS: Data Vitals/I&O Vitals and I&O: Vital Signs Temperature 36.5 C 04/08/21 08:18 Temperature Source Tympanic 04/08/21 08:18 Pulse 74 04/08/21 08:18 Pulse Rhythm Regular 04/08/21 08:02 Pulse 73 04/05/21 21:40 Respiratory Rate 17 04/08/21 08:18 Respiratory Effort Non-Labored 04/08/21 08:02 Respiratory Depth Normal 04/08/21 08:02 Respiratory Pattern Normal 04/08/21 08:02 Blood Pressure 133/79 04/08/21 08:18 Blood Pressure Mean 83 04/05/21 21:30 Blood Pressure Position Supine 04/05/21 16:45 Pulse Oximetry 94 04/08/21 08:18 Oxygen Delivery Method Room Air 04/08/21 08:18 Oxygen Flow Rate 0 04/08/21 08:18 Pain Level 0 04/08/21 08:18 Comment 04/06/21 15:09 Intake & Output 04/07/21 04/07/21 04/08/21 11:59 23:59 11:59 Intake Total 240 / 720 480 / 720 Balance 240 / 720 480 / 720 Intake: Oral 240 / 720 480 / 720 Other: Urine Color Yellow Pale Yellow Yellow Urine Appearance Clear Clear Clear Urine Odor Normal Normal Comment toilet Voiding Methods Toilet Toilet Toilet Data Completed and Pending Labs on day of discharge: Labs from last 24 hours 04/07/21 12:00 Glucose [address] [facility] Medical History (Updated 04/06/21 @ 08:43 by Ana Min NP) Carpal tunnel syndrome, bilateral Chronic pain Depression, major Diabetes mellitus adult onset Diastolic dysfunction Epicondylitis H/O fall H/O gastroesophageal reflux (GERD) Heart murmur, systolic History of anemia History of CVA (cerebrovascular accident) Hypothyroid Insomnia Lumbar radiculopathy Nonorganic sleep disorder Renal insufficiency Right shoulder pain Spinal stenosis Syncope and collapse Trochanteric bursitis, left hip Trochanteric bursitis, right hip Weakness of right arm Surgical History H/O: hysterectomy History of cholecystectomy Social History Smoking/Tobacco Use Status: Former Tobacco Use Smoking risk assessment performed?: Yes Alcohol Intake: never Drug use: Never Household members: spouse Housing: house Current gender identity: female Gayatri/Yarsanism: Buddhist Do you feel safe at home: Yes Do you feel safe in your relationship?: Yes
--- NOTE | 2021-04-08 13:42 | PT.INTREAT ---
Date of service: 04/08/21 Time of Service: 11:40 PT Notes Visit Reasons: FALLING,ORTHOSTATIC HYPOTENSIONS,HYPERGLYCEMIA Inpatient Physical Therapy Treatment Note [facility] Date: 04/08/2021 PRECAUTIONS: Fall SUBJECTIVE: Karie is pleasant and agreeable to participating in PT. She is happy that she is going to be discharged to home later today, so she can celebrate her 's birthday. She feels she is back to baseline. OBJECTIVE: PAIN: No c/o pain BED MOBILITY/TRANSFERS Sit-stand: I Stand-sit: I Bed-Chair: I Chair-bed: I GAIT Assistive Device: FWW Weight bearing: Full Assist: I Distance: 400' ASSESSMENT: Patient tolerated session well, demonstrating independence with transfers and ambulation. PLAN: Patient to discharge home later today. TREATMENT CODE/TIME: 10 minutes; 36962 (11:40)
--- NOTE | 2021-04-09 16:42 | PT.INDS ---
Date of service: 04/09/21 PT Notes Visit Reasons: FALLING,ORTHOSTATIC HYPOTENSIONS,HYPERGLYCEMIA Physical Therapy Inpatient Discharge Summary Date: 04/09/2021 Date of service: 06/18/2021 through 04/08/2021 This is a clinical summary of care provided for the duration of dates listed above. No charge was made in the completion of this documentation. Referring Doctor: Jaime Pollock MD PT Orders: PT CONSULT: Eval/treat. Precautions: Fall. Standard. Activity as tolerated. Patient Profile/Admitting Diagnosis: Karie is a 70-year-old female with past medical history of spinal stenosis, lumbar radiculopathy, syncope, and collapse who presented to the ED on 04/05/2021 due to multiple falls. Patient is diagnosed with repeated falls which may be associated to orthostasis and/or dehydration. PMHX: Medical History Carpal tunnel syndrome, bilateral Chronic pain Depression, major Diabetes mellitus adult onset Diastolic dysfunction Epicondylitis H/O fall H/O gastroesophageal reflux (GERD) Heart murmur, systolic History of anemia History of CVA (cerebrovascular accident) Hypothyroid Insomnia Lumbar radiculopathy Nonorganic sleep disorder Renal insufficiency Right shoulder pain Spinal stenosis Syncope and collapse Trochanteric bursitis, left hip Trochanteric bursitis, right hip Weakness of right arm Surgical History H/O: hysterectomy History of cholecystectomy Social History/Home Situation: Karie lives with in a mobile home with one-step to enter. 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 Independent with all aspects of ADLs without an assistive ambulatory device. Equipment Owned/DME: 4 wheeled walker, front wheeled walker, single-point cane Subjective: NT. See most recent DOCTOR OF AUDIOLOGY notes. Objective: General Observation: NT. See most recent DOCTOR OF AUDIOLOGY notes. Mental Status: NT. See most recent DOCTOR OF AUDIOLOGY notes. Pain: NT. See most recent DOCTOR OF AUDIOLOGY notes. ROM: Right Upper Extremity: Shoulder Flexion WFL. Shoulder abduction WFL. Shoulder ER/IR WFL. Elbow flexion WFL. Forearm pronation/supination WFL. Wrist flexion WFL. Opening and closing of hand WFL. Left Upper Extremity: Shoulder Flexion WFL. Shoulder abduction WFL. Shoulder ER/IR WFL. Elbow flexion WFL. Forearm pronation/supination WFL. Wrist flexion WFL. Opening and closing of hand WFL. Right Lower Extremity: Hip flexion WFL. Hip abduction WFL. Hip ER/IR WFL. Knee flexion WFL. Knee extension. Ankle dorsiflexion/eversion WFL. Ankle plantarflexion/inversion WFL. Left Lower Extremity: Hip flexion WFL. Hip abduction WFL. Hip ER/IR WFL. Knee flexion WFL. Knee extension. Ankle dorsiflexion WFL. Ankle plantarflexion WFL. Strength: Right Upper Extremity: Shoulder flexors 4/5. Shoulder abductors 4/5. Shoulder ER 4/5. Shoulder IR 4/5. Forearm pronators 4/5. Forearm supinators 4/5. Elbow flexors 5/5. Elbow extensors 5/5. Advertising Editor weak but functional. Left Upper Extremity: Shoulder flexors 4/5. Shoulder abductors 4/5. Shoulder ER 4/5. Shoulder IR 4/5. Forearm pronators 4/5. Forearm supinators 4/5. Elbow flexors 5/5. Elbow extensors 5/5. Advertising Editor weak but functional. Right Lower Extremity: Hip flexors 4-/5. Hip abductors 4-/5. Hip external rotators 4-/5. Hip internal rotators 4-/5. Knee flexors 5/5. Knee extensors 5/5. Ankle dorsiflexors/evertors 4-/5. Ankle plantarflexors/invertors 4-/5. Left Lower Extremity: Hip flexors 4-/5. Hip abductors 4-/5. Hip external rotators 4-/5. Hip internal rotators 4-/5. Knee flexors 5/5. Knee extensors 5/5. Ankle dorsiflexors/evertors 4-/5. Ankle plantarflexors/invertors 4-/5. Bed Mobility/Transfers: Supine to sit independent Sit to stand independent Stand to sit independent Bedside to toilet independent Bed to chair independent Chair to bed independent Gait: Distance of 400 feet independent using the front wheeled walker with full weight bearing. Patricia increasing. Step height increasing. Step length increasing. No LOB. Denies dizziness and pain. Balance: Static Sitting: Normal Dynamic Sitting: Normal Static Standing: Fair Dynamic Standing: Fair Assessment: With medical management patient impairments have resolved and patient is now independent with all bed mobility transfers and ambulation task performance using her front wheeled walker. Goals: Goals X1 week 1. Supine-Sit independent MET 2. Sit-Supine independent MET 3. Sit-Stand independent MET 4. Stand-Sit independent MET 5. Bed-Chair independent MET 6. Chair-Bed independent MET 7. Independent gait on level surface with use of no assistive device for at least 300 feet without report of pain nor dyspnea MET 8. Independent stair negotiation while holding onto 1 rail for at least 3 steps without report of pain nor dyspnea MET 9. Independent with home exercise program NOT MET 10. Good static and dynamic standing balance/tolerance NOT MET DISCHARGE RECOMMENDATIONS: Patient will benefit from home health PT services in order to progress mobility level using least restrictive assistive ambulatory device, assess home safety, identify additional equipment needs, and establish a functional maintenance program that will increase ability of patient to remain at home. TREATMENT CODE/TIME: [place] Thank you for the opportunity to participate in the care of this patient. Azra Renee PT, DPT, CLT [facility] [place], [place]
== END 2021-04-08 15:33 | disposition home or self-care (01) | DRG 312 ==
LOC: ER 21:29 → MS 21:54
PROVIDERS: Family Medicine; Nurse Practitioner Acute Care; Admitting Provider General Practice; Emergency Provider Physician Assistant; PCP Family Medicine; Visit Provider General Practice
DX: I95.1 Orthostatic hypotension (principal); E11.65 Type 2 diabetes mellitus with hyperglycemia; R29.6 Repeated falls; Z86.73 Personal history of transient ischemic attack (TIA), and cerebral infarction without residual deficits; R26.2 Difficulty in walking, not elsewhere classified; G56.03 Carpal tunnel syndrome, bilateral upper limbs; G89.29 Other chronic pain; F32.9 Major depressive disorder, single episode, unspecified; D64.9 Anemia, unspecified; K21.9 Gastro-esophageal reflux disease without esophagitis; E03.9 Hypothyroidism, unspecified; M54.16 Radiculopathy, lumbar region; F51.9 Sleep disorder not due to a substance or known physiological condition, unspecified; Z79.4 Long term (current) use of insulin; I10 Essential (primary) hypertension; Z79.01 Long term (current) use of anticoagulants; E78.5 Hyperlipidemia, unspecified; G31.84 Mild cognitive impairment of uncertain or unknown etiology; Z91.14 Patient's other noncompliance with medication regimen
CPT/HCPCS: 36415; 36416; 80048; 80053; 80307; 82805; 82947; 82962; 87635; 93005; 93306; 96372; 97110; 97162; 97165; 97530; 97535; 99285; 70450; 71046; 81003; 81015; 83036; 83735; 84443; 84484; 85025; 85610; 85730; 93010; 99219; 99226; 99233; 99239; G0378; J1815

== ENCOUNTER 2021-07-23 20:43 | Outpatient (REF) | payer OTHER, SELFPAY ==
[2021-07-26 10:29] LABS: Lyme Ab w Rflx to Lyme Confirm Negative (Negative)
[2021-07-27 18:15] LABS: Anaplasma phagocytophilum Negative (Negative); B. miyamotoi PCR Negative (Negative); Babesia divergens/MO-1 Negative (Negative); Babesia duncani Negative (Negative); Babesia microti Negative (Negative); Ehrlichia chaffeensis Negative (Negative); Ehrlichia ewingii/canis Negative (Negative); Ehrlichia muris eauclairensis Negative (Negative)
== END 2021-07-23 20:44 | disposition home or self-care (01) ==
LOC: NCHCN 20:43
PROVIDERS: PCP Family Medicine; Visit Provider Family Medicine
DX: R21 Rash and other nonspecific skin eruption (principal)
CPT/HCPCS: 87798; 86618

== ENCOUNTER 2022-04-01 15:59 | Inpatient (IN) | payer OTHER, SELFPAY ==
[2022-04-01] VITALS (220 sets, daily range): BP systolic 95–188; BP diastolic 54–110; PULSE 68–82; RESP 11–24; TEMP 36.1–36.9; O2SAT 92–100
--- NOTE | 2022-04-01 16:00 | RT.EKG_ITS ---
APPROVED REPORT Exam: Resting ECG Reason for Exam: [facility] Patient Location: E HR:79 bpm ECG Measurements Heart Rate 79 AXIS IA 176 P 14 QRSd 107 QRS 4 QT 392 T 13 QTc 450 Conclusion Sinus rhythm...normal P axis, V-rate 60- 99
--- NOTE | 2022-04-01 16:15 | DI.CT_ITS ---
Exam(s) CT CHEST/ABD/PEL WO EXAM: CT CHEST/ABD/PEL WO CLINICAL HISTORY: fall yesterday, left chest pain, left abdominal pa TECHNIQUE: Imaging Protocol: Axial computed tomography images with coronal and sagittal reformatted images were created and reviewed COMPARISON: CT UPPER ABD WITH CONTRAST (P) from 10/07/2015 FINDINGS: The examination is limited due to patient motion artifact. CHEST: Tracheobronchial tree: Patent where visualized. Pulmonary parenchyma: No consolidation or dominant measurable mass. There is pleural and parenchymal scarring or atelectasis. Mediastinum and Aishwarya: No dominant adenopathy or fluid collection. The esophagus is unremarkable. Ther e is a small hiatal hernia. Thyroid gland: Unremarkable. Pleura: No effusion or pneumothorax. Heart: There is mild cardiomegaly. Coronary artery calcifications are present. No pericardial effus ion. Aorta: Thoracic aorta non-dilated. Atherosclerosis is present. Lymph nodes: Within normal limits. Bones:Within normal limits for the patient's age. No acute fracture or subluxation. Soft tissues: Unremarkable. ABDOMEN: Liver: Normal density. No measurable mass. Gallbladder and Biliary Tract: Status post cholecystectomy. No biliary ductal dilatation. Pancreas: Normal density, no abnormal calcifications or inflammatory process. Spleen: Normal. Adrenals: No masses seen. Kidneys: Normal size, contour and axis. No radiodense stones or obstructive uropathy. No masses seen. Abdominal Aorta: Abdominal portion non-dilated. Extensive atherosclerosis. Bowel: No obstruction or bowel wall thickening. No evidence of appendicitis. There is a large amount of stool throughout the colon suggesting constipation. Peritoneal Cavity: No ascites, collection or mesenteric inflammatory response. No free air. Lymph Nodes: Within normal limits. Bones: Within normal limits for the patient's age. No acute fracture or subluxation. Soft Tissues: Unremarkable. PELVIS: Bladder: Symmetric distention, no gross wall thickening. Reproductive Organs: Status post hysterectomy. Lymph Nodes: Within normal limits. Bones: Within normal limits for the patient's age. IMPRESSION: 1. No acute abdominal, chest or pelvic abnormality. No acute fracture. 2. Results of this exam have been verbally communicated with provider. RADIATION DOSE DELIVERED: Total DLP DATA REPOSITORY: All CT scans at this facility are submitted to the National Radiology Data Registry (NRDR) Dose Index Registry (DIR) with the [employer] (A[employer]). RADIATION OPTIMIZATION: All CT scans at this facility use at least one of these dose optimization te chniques: automated exposure control; mA and/or kV adjustment per patient size (includes targeted exa ms where dose is matched to clinical indication); or iterative reconstruction.
--- NOTE | 2022-04-01 16:15 | DI.CT_ITS ---
Exam(s) CT HEAD WO EXAM: CT HEAD WO CLINICAL HISTORY: [place]. TECHNIQUE: Imaging Protocol: Axial computed tomography images with coronal and sagittal reformatted images were created and reviewed COMPARISON: CT CT HEAD WO from 04/05/2021 FINDINGS: Ventricles and Extra axial spaces: Normal in size and morphology for the patient's age. Hemorrhage: None. Cerebral parenchyma: There is again seen an area of encephalomalacia in the left frontal lobe. No ac hoh territorial infarct is present. There are areas of decreased attenuation in the white matter mos t consistent with small vessel ischemic disease. Midline shift: None. Brainstem/Cerebellum: Normal. Calvarium: Normal. Visualized Paranasal sinuses/Mastoids: Clear. Soft Tissues: Unremarkable. IMPRESSION: 1. No acute intracranial process. 2. Results of this exam have been verbally communicated with provider. RADIATION DOSE DELIVERED: 718.8mGy.cm Total DLP DATA REPOSITORY: All CT scans at this facility are submitted to the National Radiology Data Registry (NRDR) Dose Index Registry (DIR) with the [employer] (ACR). RADIATION OPTIMIZATION: All CT scans at this facility use at least one of these dose optimization te chniques: automated exposure control; mA and/or kV adjustment per patient size (includes targeted exa ms where dose is matched to clinical indication); or iterative reconstruction.
--- NOTE | 2022-04-01 16:18 | ED.GENADUL_ITS ---
Discharge Plan Disposition Patient Disposition: [facility] INPATIENT Condition: Stable Discharge Details Chief Complaint: AMS/LOC Clinical Impression: Ambulatory dysfunction, TIA (transient ischemic attack), Diabetes Admit Date/Time: 04/01/22 19:33 Admit Provider: Jaime Sheikh Attending Provider: Jaime Sheikh Primary Care Provider: Melodie Lay V ED Provider: Radha Mercer Discharge Instructions Activity:: Activity as Tolerated Equipment/Supplies:: No Equipment Needed Diet:: Carb Counting Discharge Orders Discharge Orders: Discharge Order (Routine); Ordered 04/04/22 Ordered By: Ana Min Discharge Data Discharge Date/Time-TO BE ENTERED AT DEPARTURE: 04/01/22 20:38 Medical Decision Making Patient is a pleasant 71-year-old female with past medical history pertinent for hypothyroidism, hypertension, diabetes, stroke, depression, hyperlipidemia, brought in via EMS with concern for general malaise. Patient reports that she has been feeling unwell since yesterday. Describes falling for unknown reason yesterday. Denies striking her head but has been having a left-sided chest and abdominal discomfort. She denies any nausea or vomiting. No change in her vision. Denies any continence. Recently changed from self injection of insulin to autoinjector. Otherwise, denies any recent medication changes. She denies any chest pain or shortness of breath. Has not noted any focal weakness but is generally weaker than her baseline. She denies any dysuria, fevers, chills. No recent cough. Describes baseline shortness of breath which is unchanged. On exam, patient has signficant difficulty getting onto stretcher and ambualting. Needs 2 person assist to do so. Appears generally weak and off balance. No focal deficit is noted. No pronator drift, facial strength equal bilaterally, finger to nose intact although slow. Lungs are clear, normal cardiac exam. She has no evidence of head trauma from fall yesterday. Has some discomfort with palpation over the left lower chest wall. Discomfort left CVA which she associated with fall. Posterior circualtion stroke concidered, patient outside of the window for intervention. Also considered ACS although this does not seem to be exertionally linked. Possible electrolytee abnormality, possible infeciton such as UTI vs. other. Will obtain labs, ECG, CT of head. Will also obtain imaging of chest, abdomen with her fall and continued left sided discomfort. ECG reviewed by MARLENI Marshall with no acute ischemic changes noted. CT head reviewed by radiologist: Ventricles and Extra axial spaces: Normal in size and morphology for the patient's age. Hemorrhage: None. Cerebral parenchyma: There is again seen an area of encephalomalacia in the left frontal lobe.? No acute territorial infarct is present.? There are areas of decreased attenuation in the white matter most consistent with small vessel ischemic disease.? Midline shift: None. Brainstem/Cerebellum: Normal. Calvarium: Normal. Visualized Paranasal sinuses/Mastoids: Clear. Soft Tissues: Unremarkable. IMPRESSION: 1. No acute intracranial process.? 2. Results of this exam have been verbally communicated with provider. CHEST: Tracheobronchial tree: Patent where visualized. Pulmonary parenchyma: No consolidation or dominant measurable mass. There is pleural and parenchymal scarring or atelectasis.? Mediastinum and Aishwarya: No dominant adenopathy or fluid collection. The esophagus is unremarkable. There is a small hiatal hernia. Thyroid gland: Unremarkable. Pleura: No effusion or pneumothorax. Heart: There is mild cardiomegaly.? Coronary artery calcifications are present.? No pericardial effusion. Aorta: Thoracic aorta non-dilated. Atherosclerosis is present. Lymph nodes: Within normal limits. Bones:Within normal limits for the patient's age.? No acute fracture or subluxation. Soft tissues: Unremarkable. ABDOMEN: Liver: Normal density. No measurable mass. Gallbladder and Biliary Tract: Status post cholecystectomy.? No biliary ductal dilatation.? Pancreas: Normal density, no abnormal calcifications or inflammatory process. Spleen: Normal. Adrenals: No masses seen. Kidneys: Normal size, contour and axis. No radiodense stones or obstructive uropathy. No masses seen. Abdominal Aorta: Abdominal portion non-dilated. Extensive atherosclerosis. Bowel: No obstruction or bowel wall thickening. No evidence of appendicitis.? There is a large amount of stool throughout the colon suggesting constipation. Peritoneal Cavity: No ascites, collection or mesenteric inflammatory response. No free air. Lymph Nodes: Within normal limits. Bones: Within normal limits for the patient's age.? No acute fracture or subluxation. Soft Tissues: Unremarkable. PELVIS: Bladder: Symmetric distention, no gross wall thickening. Reproductive Organs: Status post hysterectomy.? Lymph Nodes: Within normal limits. Bones: Within normal limits for the patient's age.? IMPRESSION: 1. No acute abdominal, chest or pelvic abnormality.? No acute fracture.? 2. Results of this exam have been verbally communicated with provider. Patients work-up is fairly unremarkable. Mild leukocytosis, chronic hyponatremia, no evidence to suggest a UTI, COVID-negative no abnormalities on imaging. Patient was notably fatigued appearing, weak and had difficulty with balance when we attempted to ambulate her. Displaying essentially a positive Romberg, I do remain concerned for potential posterior stroke patient is already on aspirin and Plavix both of which she is taking today. As symptoms began yesterday, patient certainly outside of the window for any intervention if this was an acute CVA. With the significant contrast shortage and this ultimately unlikely changing the patient plan of care, I do not feel that CTA is appropriate at this time. Rather, patient may ultimately need an MRI patient not able to get at this time. Plan to admit the patient with her significant ambulatory dysfunction and balance difficulty. Consulted with Dr. Sheikh who agrees to admission, will holding orders will be placed by myself HPI General Date/Time Provider Initiated Documentation: 04/01/22 16:00 . Limitations to Documentation: no limitations . Information obtained by: patient, EMS, RN notes reviewed and old records reviewed . History of Present Illness 71 year old F presents to the emergency department with the chief complaint of general feeling of unwell, fatigued and weak, elevated glucose yesterday, described as moderate, Patient started experiencing this day(s) and it has been constant. No relieving factors improve symptom(s), No exacerbating factors reported . Related Data Home Medications Medication Instructions Recorded Confirmed bupropion HCl 150 mg 24 hr tablet, 150 mg PO DAILY 07/12/17 04/01/22 extended release (Wellbutrin XL) calcium carbonate 500 mg calcium 500 mg PO BID 07/12/17 04/01/22 (1,250 mg) tablet (Oyster Shell Calcium 500) ferrous sulfate 325 mg (65 mg 325 mg PO DAILY 07/12/17 04/01/22 iron) tablet,delayed release atorvastatin 40 mg tablet (Lipitor) 40 mg PO QPM #60 tabs 07/27/17 04/01/22 aspirin 81 mg chewable tablet 81 mg PO DAILY 09/04/19 04/01/22 cholecalciferol (vitamin D3) 25 1,000 unit PO BID 09/04/19 04/01/22 mcg (1,000 unit) tablet (Vitamin D3) clopidogrel 75 mg tablet (Plavix) 75 mg PO DAILY 09/04/19 04/01/22 ezetimibe 10 mg tablet (Zetia) 10 mg PO DAILY 09/04/19 04/01/22 lisinopril 5 mg tablet 10 mg PO DAILY 09/04/19 04/01/22 amitriptyline 100 mg tablet 100 mg PO QHS 07/13/20 04/01/22 metformin 1,000 mg tablet 1,000 mg PO BID 10/06/20 04/01/22 (Glucophage) diclofenac sodium 1 % topical gel 4 gm topical BID PRN 04/01/22 04/01/22 gabapentin 100 mg capsule See Rx Instructions .Route .COMPLEX 04/01/22 04/01/22 insulin aspart U-100 100 unit/mL See Rx Instructions .Route .COMPLEX 04/01/22 04/01/22 subcutaneous solution (Novolog U-100 Insulin aspart) insulin detemir U-100 100 unit/mL 42 unit subcut DAILY AM 04/01/22 04/01/22 subcutaneous solution (Levemir U-100 Insulin) semaglutide 7 mg tablet (Rybelsus) 1 tab PO DAILY 04/01/22 04/01/22 pantoprazole 20 mg tablet,delayed 20 mg PO DAILY #30 tabs 04/04/22 release (Protonix) Previous Rx's Medication Instructions Recorded atorvastatin 40 mg tablet (Lipitor) 40 mg PO QPM #60 tabs 07/27/17 pantoprazole 20 mg tablet,delayed 20 mg PO DAILY #30 tabs 04/04/22 release (Protonix) Allergies Allergy/AdvReac Type Severity Reaction Status Date / Time morphine Allergy Severe Hives Unverified 04/01/22 17:52 insulin detemir Allergy Intermediate Unverified 04/01/22 17:52 [From Levemir U-100 Insulin] General Stated Complaint: AMS/LOC MENDOZA: 2 Review of Systems Constitutional Constitutional: Reports as per HPI, Denies chills, Denies fever(s) and Denies headache(s) Eyes Eyes: Denies change in vision ENT Ears, Nose, Mouth, and Throat: Denies headache(s) Cardiovascular Cardiovascular: Reports as per HPI Respiratory Respiratory: Reports as per HPI, Denies chest congestion, Denies cough, Denies pain on inspiration and Denies pain with cough Gastrointestinal Gastrointestinal: Reports as per HPI, Denies abdominal pain, Denies diarrhea, Denies nausea and Denies vomiting Musculoskeletal Musculoskeletal: Reports as per HPI and Denies back pain Integumentary/Breasts Skin/Breast: Reports as per HPI and Denies rash Neurologic Neurologic: Reports as per HPI and Denies headache(s) PFSH All Active Problems (Updated 04/19/22 @ 10:14 by JESS Stringer) TIA (transient ischemic attack) (Acute) Discharge planning issues (Acute) Ambulatory dysfunction (Acute) Hypothyroid (Chronic) Falling (Acute) Trochanteric bursitis, left hip (Acute) Transaminitis (Acute) Anemia (Acute) Hypertension (Acute) Diabetes (Chronic) 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 (Acute) Depression (Acute) Hyperlipidemia (Chronic) Medical History Carpal tunnel syndrome, bilateral Chronic pain Depression, major Diabetes mellitus adult onset Diastolic dysfunction Epicondylitis H/O fall H/O gastroesophageal reflux (GERD) Heart murmur, systolic History of anemia History of CVA (cerebrovascular accident) Insomnia Lumbar radiculopathy Nonorganic sleep disorder Renal insufficiency Right shoulder pain Spinal stenosis Syncope and collapse Trochanteric bursitis, right hip Weakness of right arm Surgical History H/O: hysterectomy History of cholecystectomy Social History Smoking/Tobacco Use Status: Former Tobacco Use Smoking risk assessment performed?: Yes Alcohol Intake: never Drug use: Never Substance use type: does not use Household members: spouse Housing: house Current gender identity: female Gayatri/Voodoo: Anglican Do you feel safe at home: Yes Do you feel safe in your relationship?: Yes Exam Const General: cooperative, comfortable, no acute distress, well developed and ill appearing acutely Nutritional Appearance: average body habitus and well nourished Orientation: alert, awake and oriented x3 HENMT Head: normal to inspection, normocephalic and atraumatic Ears: hearing grossly normal bilaterally Mouth: moist mucous membranes Eyes General: appearance normal, both eyes and all related structures Visual Aldrich: normal visual aldrich by confrontation Alignment and Position: alignment normal and position normal Pupils: PERRL, normal by confrontation and accommodation normal EOM: EOM intact bilaterally Neck Neck: normal visual inspection, full ROM and no meningeal signs Chest Chest: normal inspection of the chest, normal palpation of entire chest wall and no crepitus Resp Effort & Inspection: normal respiratory effort, able to speak in complete sentences and no respiratory distress Auscultation: clear to auscultation bilaterally, no rales, no rhonchi and no wheezes Cardio Rate: regular rate Rhythm: regular rhythm Heart Sounds: S1 normal and S2 normal GI Inspection: normal to inspection, no edema and non-distended Palpation: soft, no hepatosplenomegaly, not firm, no guarding, not rigid and nontender Auscultation: normal bowel sounds Back/Spine/Pelvis Back: no CVA tenderness Thoracic/Lumbar Spine: thoracic and lumbar spine normal to inspection Skin General skin exam: no rashes or lesions noted Trauma: no lacerations or abrasions Neuro General: patient alert, patient awake and patient oriented x3 Cranial Nerves: CN's II-XI intact bilaterally Cognition: normal cognition Speech: speech normal Gait: antalgic (quite weak, off balance, needs 2 person assist) Motor: tone not normal throughout (generally weak but nothing focal noted), no pronator drift, no movement abnormalities noted, no fasciculations and No asterixis Sensory Exam: no sensory deficits noted Extrem General: normal to inspection, capillary refill normal, no pedal edema and no calf tenderness Psych Appearance: grossly normal and well kempt Mental Status: mental status grossly normal Speech and Movement: speech and movement normal Course Vital Signs Vital signs: Vital Signs Temperature 36.9 C 04/01/22 15:58 Pulse 82 04/01/22 15:58 Respiratory Rate 16 04/01/22 15:58 Blood Pressure 170/75 H 04/01/22 15:58 Pulse Oximetry 98 04/01/22 15:58 Temperature 36.9 C 04/01/22 15:58 Temperature Source Temporal Artery Scan 04/01/22 15:58 Pulse 82 04/01/22 15:58 Respiratory Rate 11 L 04/01/22 16:07 Respiratory Effort Non-Labored 04/01/22 16:07 Respiratory Depth Normal 04/01/22 16:07 Respiratory Pattern Normal 04/01/22 16:07 Blood Pressure 170/75 H 04/01/22 15:58 Blood Pressure Position Sitting 04/01/22 15:58 Pulse Oximetry 98 04/01/22 15:58 Oxygen Delivery Method Room Air 04/01/22 15:58 Oxygen Flow Rate 0 04/01/22 15:58 Pain Level 10 04/01/22 15:58
[2022-04-01 16:30] LABS: Abs Immature Grans 0.06 10^3/uL (0.0-0.06); Absolute Basophil Count 0.04 10^3/uL (0.0-0.2); Absolute Eosinophil Count 0.12 10^3/uL (0.0-0.7); Absolute Lymphocyte Count 2.47 10^3/uL (1.2-3.4); Absolute Monocyte Count 0.73 10^3/uL (0.1-0.8); Absolute Neutrophil Count 7.77 10^3/uL (1.2-6.7); Basophils % 0.4; Eosinophils % 1.1; HCT 37.1 % (36.0-46.0); HGB 12.8 g/dL (11.2-15.7); Immature Grans % 0.5; Lymphocytes % 22.1; MCH 30.1 pg (27.0-33.0); MCHC 34.5 % (32.0-36.0); MCV 87 fL (80-95); MPV 9.5 fL (8.0-11.0); Monocytes % 6.5; Neutrophils % 69.4; Platelet Count 250 10^3/uL (130-400); RBC 4.25 10^6/uL (3.93-5.22); RDW 12.3 % (11.7-14.6); RDW-SD 39.4 fL; WBC 11.19 10^3/uL (4.4-10.8)
[2022-04-01] MEDS: ACETAMINOPHEN 1,000 MG/100 ML BTL 400 MG IVPB (16:35)
[2022-04-01] MEDS: Normal Saline 1,000 ML 500 ML IV (16:35)
[2022-04-01 16:55] LABS: ALT 24 U/L (14-59); AST 25 U/L (15-37); Albumin 3.4 g/dL (3.4-5.0); Alkaline Phosphatase 153 U/L (46-116); Anion Gap 6.9 mmol/L (3-11); BUN 24 mg/dL (7-18); Bilirubin, Total 0.3 mg/dL (0.2-1.0); CO2 28.1 mmol/L (21.0-32.0); CREATININE 1.1 mg/dL (0.55-1.02); Calcium 9.8 mg/dL (8.5-10.1); Chloride 94 mmol/L (98-107); Estimated GFR 49.25 (mL/min/1.73m2); Glucose 142 mg/dL (74-106); Potassium 4.1 mmol/L (3.5-5.1); Sodium 129 mmol/L (136-145); TSH (W/Ref FT4) 1.25 uIU/mL (0.36-3.74); Total Protein 7.2 g/dL (6.4-8.2); Troponin I < 50 ng/L (<or=60)
[2022-04-01 17:33] LABS: Bilirubin Negative (Negative); Blood Negative (Negative); Clarity Clear (Clear); Glucose 500 mg/dL (Negative); Ketones Trace mg/dL (Negative); Leukocyte Esterase Negative (Negative); Nitrite Negative (Negative); Specific Gravity >= 1.030 (1.005-1.025); Urobilinogen 0.2 EU/dL (Up TO 0.2); pH 5.5 (5-8)
[2022-04-01 17:41] LABS: Bacteria Rare HPF (Negative); C & S Indicated? No; Casts 3-5 Hyaline LPF (Negative); Crystals Negative HPF (Negative); Epithelial Cells Moderate HPF (Negative); Mucus Moderate (Negative); RBC 0-2 HPF (0-2)
[2022-04-01 18:49] LABS: COVID-19 PCR Negative (Negative); Influenza A PCR Negative (Negative); Influenza B PCR Negative (Negative); RSV PCR Negative (Negative)
[2022-04-01 19:04] LABS: Source Nasopharynx
[2022-04-01 19:42] LABS: Troponin I < 50 ng/L (<or=60)
--- NOTE | 2022-04-01 22:19 | HPE_ITS ---
Date of service: 04/01/22 Time of Service: 21:20 Assessment and Plan Assessment and plan (1) TIA (transient ischemic attack): Start date: 04/01/22 Status: Acute Assessment and plan: This is a 71-year-old lady with risk for cardiovascular disease on moderate dose Lipitor and having had previous frontal stroke presenting with unsteady gait and falling at least twice a day prior to admission secondary to unsteadiness and positive Romberg on exam. She appears to have possible posterior circulation involvement with neurological deficit of sudden onset. There is no evidence of nystagmus or vertigo by exam or by report. Patient had a normal CT with CTA was not performed and she is already on Plavix and aspirin. MRI will be obtained and current Dopplers will also be obtained to review risk for recurrent CVAs. Physical therapy should evaluate patient as well. Echocardiogram should be entertained with bubble study though she has had a recent cardiogram with no issues or defects noted. She will be placed on high-dose atorvastatin and continue lisinopril and Plavix with aspirin. She was on omeprazole with Plavix that this could have been blood defects with (2) Ambulatory dysfunction: Start date: 04/01/22 Status: Acute Assessment and plan: Positive Romberg with suggestion of acute posterior circulation disruption. Physical therapy evaluation and treat TIA as above. (3) Diabetes: Status: Chronic Assessment and plan: Hold outpatient medications and cover with Jardiance and glucometer checks before meals and at bedtime. (4) Hyperlipidemia: Status: Chronic Assessment and plan: Put on high-dose atorvastatin with recurrent cerebral vascular events. History of Present Illness History of Present Illness Chief Complaint: Generally feeling unwell and weak with elevated glucose being diabetic Narrative: This is a pleasant 71-year-old female with past medical history pertinent for hypothyroidism, hypertension, diabetes, stroke, depression, hyperlipidemia, brought in via EMS with concern for general malaise.? Patient reports that she has been feeling unwell since yesterday.? Describes falling for unknown reason yesterday.? Denies striking her head but has been having a left-sided chest and abdominal discomfort.? She denies any nausea or vomiting.? No change in her vision.? Denies any continence.? Recently changed from self injection of insulin to autoinjector.? Otherwise, denies any recent medication changes.? She denies any chest pain or shortness of breath.? Has not noted any focal weakness but is generally weaker than her baseline.? She denies any dysuria, fevers, chills.? No recent cough.? Describes baseline shortness of breath which is unchanged. Patient's work-up in the ED revealed mild leukocytosis, chronic stable appearing hyponatremia, no evidence to suggest a UTI, COVID-19 and influenza negative with no abnormalities on imaging.? Patient was notably fatigued appearing, weak and had difficulty with balance when we attempted to ambulate her. She did have a positive Romberg and there was some concern of a posterior stroke patient is already on aspirin and Plavix though on omeprazole which may block Plavix. She had taken her medicines the day of admission. As symptoms began yesterday, patient certainly outside of the window for any intervention if this was an acute CVA.? With the significant contrast shortage and this ultimately unlikely changing the patient plan of care, the ED provider did not feel that CTA is appropriate at this time.? Rather, patient may ultimately need an MRI patient not able to get at this time.? Plan to admit the patient with her significant ambulatory dysfunction and balance difficulty. The patient is a DNR/DNI and has had a previous frontal CVA with residual right upper extremity weakness. Patient lives with her at home who also is debilitated but worse than rich rand. Review of Systems Narrative: 13 point review of systems otherwise unrevealing or stable. 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 (Acute) Depression (Acute) Hyperlipidemia (Chronic) Medical History Carpal tunnel syndrome, bilateral Chronic pain Depression, major Diabetes mellitus adult onset Diastolic dysfunction Epicondylitis H/O fall H/O gastroesophageal reflux (GERD) Heart murmur, systolic History of anemia History of CVA (cerebrovascular accident) Insomnia Lumbar radiculopathy Nonorganic sleep disorder Renal insufficiency Right shoulder pain Spinal stenosis Syncope and collapse Trochanteric bursitis, right hip Weakness of right arm Surgical History H/O: hysterectomy History of cholecystectomy Social History Smoking/Tobacco Use Status: Former Tobacco Use Smoking risk assessment performed?: Yes Alcohol Intake: never Drug use: Never Substance use type: does not use Household members: spouse Housing: house Current gender identity: female Gayatri/Latter-Day: [employer] Do you feel safe at home: Yes Do you feel safe in your relationship?: Yes Meds Allergies and Home Medications Allergies Allergy/AdvReac Type Severity Reaction Status Date / Time morphine Allergy Severe Hives Unverified 04/01/22 17:52 insulin detemir Allergy Intermediate Unverified 04/01/22 17:52 [From Levemir U-100 Insulin] Home Medications Medication Instructions Recorded Confirmed Type bupropion HCl 150 mg 24 hr tablet, 150 mg PO DAILY 07/12/17 04/01/22 History extended release (Wellbutrin XL) calcium carbonate 500 mg calcium 500 mg PO BID 07/12/17 04/01/22 History (1,250 mg) tablet (Oyster Shell Calcium 500) ferrous sulfate 325 mg (65 mg 325 mg PO DAILY 07/12/17 04/01/22 History iron) tablet,delayed release omeprazole magnesium 20 mg 20 mg PO DAILY 07/12/17 04/01/22 History tablet,delayed release (Prilosec OTC) atorvastatin 40 mg tablet (Lipitor) 40 mg PO QPM #60 tabs 07/27/17 04/01/22 Rx aspirin 81 mg chewable tablet 81 mg PO DAILY 09/04/19 04/01/22 History cholecalciferol (vitamin D3) 25 1,000 unit PO BID 09/04/19 04/01/22 History mcg (1,000 unit) tablet (Vitamin D3) clopidogrel 75 mg tablet (Plavix) 75 mg PO DAILY 09/04/19 04/01/22 History ezetimibe 10 mg tablet (Zetia) 10 mg PO DAILY 09/04/19 04/01/22 History lisinopril 5 mg tablet 10 mg PO DAILY 09/04/19 04/01/22 History amitriptyline 100 mg tablet 100 mg PO QHS 07/13/20 04/01/22 History metformin 1,000 mg tablet 1,000 mg PO BID 10/06/20 04/01/22 History (Glucophage) diclofenac sodium 1 % topical gel 4 gm topical BID PRN 04/01/22 04/01/22 History gabapentin 100 mg capsule See Rx Instructions .Route .COMPLEX 04/01/22 04/01/22 History insulin aspart U-100 100 unit/mL See Rx Instructions .Route .COMPLEX 04/01/22 04/01/22 History subcutaneous solution (Novolog U-100 Insulin aspart) insulin detemir U-100 100 unit/mL 42 unit subcut DAILY AM 04/01/22 04/01/22 History subcutaneous solution (Levemir U-100 Insulin) semaglutide 7 mg tablet (Rybelsus) 1 tab PO DAILY 04/01/22 04/01/22 History Exam Narrative Exam Narrative: General: Patient appears older than stated age, moderately obese, no acute distress and alert and oriented to place person and place. HEENT: Normocephalic, eyes with pupils equal and reactive light symmetrically, extraocular movement intact and sclera anicteric. Oropharynx with slightly dry mucosa. Neck: Supple without JVD. Back: Stooped posture without CVA tenderness. Lungs: Fair aeration clear to taste and extension without focal rales or rhonchi. Breast: Exam deferred. Abdomen: Obese contour, nontender to palpation and no guarding. No palpable hepatosplenomegaly. Genitalia/rectal: Exam deferred. Extremities: Without clubbing, cyanosis or pitting edema. Peripheral pulses grossly intact. No joint swelling with fair range of motion of all joints. Skin: Pale, warm and dry with no rashes noted. Neuro: Cranial nerves II through XII appear to be grossly intact. Slight decreased grasp on the right compared to left being 4+ out of 5. Equivocal Babinski on the left. DTRs this POINT. Clonus. Cerebellar testing positive Romberg as noted ED. Psych: Flattened affect, normal mood. No abnormal thought processes. Remote and recent memory grossly intact. Results Imaging Imaging Studies: EXAM: ? CT HEAD WO CLINICAL HISTORY: ? HANNON. ? TECHNIQUE:? Imaging Protocol: Axial computed tomography images with coronal and sagittal reformatted images were created and reviewed COMPARISON:? CT CT HEAD WO from 04/05/2021 FINDINGS: Ventricles and Extra axial spaces: Normal in size and morphology for the patient's age. Hemorrhage: None. Cerebral parenchyma: There is again seen an area of encephalomalacia in the left frontal lobe.? No acute territorial infarct is present.? There are areas of decreased attenuation in the white matter most consistent with small vessel ischemic disease.? Midline shift: None. Brainstem/Cerebellum: Normal. Calvarium: Normal. Visualized Paranasal sinuses/Mastoids: Clear. Soft Tissues: Unremarkable. IMPRESSION: 1. No acute intracranial process.? 2. Results of this exam have been verbally communicated with provider. EXAM:? CT CHEST/ABD/PEL WO CLINICAL HISTORY: ? fall yesterday, left chest pain, left abdominal pa ? TECHNIQUE:? Imaging Protocol: Axial computed tomography images with coronal and sagittal reformatted images were created and reviewed COMPARISON:? CT UPPER ABD WITH CONTRAST (P) from 10/07/2015 FINDINGS: The examination is limited due to patient motion artifact.? CHEST: Tracheobronchial tree: Patent where visualized. Pulmonary parenchyma: No consolidation or dominant measurable mass. There is pleural and parenchymal scarring or atelectasis.? Mediastinum and Aishwarya: No dominant adenopathy or fluid collection. The esophagus is unremarkable. There is a small hiatal hernia. Thyroid gland: Unremarkable. Pleura: No effusion or pneumothorax. Heart: There is mild cardiomegaly.? Coronary artery calcifications are present.? No pericardial effusion. Aorta: Thoracic aorta non-dilated. Atherosclerosis is present. Lymph nodes: Within normal limits. Bones:Within normal limits for the patient's age.? No acute fracture or subluxation. Soft tissues: Unremarkable. ABDOMEN: Liver: Normal density. No measurable mass. Gallbladder and Biliary Tract: Status post cholecystectomy.? No biliary ductal dilatation.? Pancreas: Normal density, no abnormal calcifications or inflammatory process. Spleen: Normal. Adrenals: No masses seen. Kidneys: Normal size, contour and axis. No radiodense stones or obstructive uropathy. No masses seen. Abdominal Aorta: Abdominal portion non-dilated. Extensive atherosclerosis. Bowel: No obstruction or bowel wall thickening. No evidence of appendicitis.? There is a large amount of stool throughout the colon suggesting constipation. Peritoneal Cavity: No ascites, collection or mesenteric inflammatory response. No free air. Lymph Nodes: Within normal limits. Bones: Within normal limits for the patient's age.? No acute fracture or subluxation. Soft Tissues: Unremarkable. PELVIS: Bladder: Symmetric distention, no gross wall thickening. Reproductive Organs: Status post hysterectomy.? Lymph Nodes: Within normal limits. Bones: Within normal limits for the patient's age.? IMPRESSION: 1. No acute abdominal, chest or pelvic abnormality.? No acute fracture.? 2. Results of this exam have been verbally communicated with provider. EXAM: Comprehensive 2D, Doppler, and color-flow Echocardiogram Patient Location: In-Patient Room/Bed:[facility] [employer] Machine Operator: Lashell Barkley RDCS (AE) Indications: Frequent falls, CVA Other Information Study Quality: Fair Conclusion Left Ventricle : The left ventricle is normal size. The left ventricular ejection fraction is within the normal range. There is normal left ventricular wall thickness. There is normal LV segmental wall motion. LVEF is 55%. Diastolic function is indeterminate. Right Ventricle : Right ventricle is not well visualized. Right ventricular systolic function could not be assessed. The RVSP is 30.6 mmHg. Atria : The left atrium size is normal. The right atrium size is normal. Valves: There are no hemodynamically significant valvular lesions Great Vessels : The aortic root is normal in size. The ascending aorta is mildly dilated. Aortic arch is normal in caliber. IVC is normal in size and collapses >50% with inspiration. See remainder of study for further details. Wall motion Left Ventricle The left ventricle is normal size. The left ventricular ejection fraction is within the normal range. There is normal left ventricular wall thickness. There is normal LV segmental wall motion. Diastolic function is indeterminate. There is no ventricular septal defect visualized. LVEF is 55%. Right Ventricle Right ventricle is not well visualized. Right ventricular systolic function could not be assessed. The RVSP is 30.6 mmHg. Atria The left atrium size is normal. The right atrium size is normal. The interatrial septum is intact with no evidence for an atrial septal defect. Aortic Valve The Aortic valve is sclerotic. Aortic valve is trileaflet. There is no aortic valvular stenosis. No aortic regurgitation is present. Mitral Valve Mild mitral annular calcification. No evidence of mitral valve stenosis. Trace mitral regurgitation. Tricuspid Valve The tricuspid valve is normal in structure. There is no tricuspid valve stenosis. Trace tricuspid regurgitation. Pulmonic Valve The pulmonary valve is normal in structure. There is no pulmonic valvular stenosis. There is no pulmonic valvular regurgitation. Great Vessels The aortic root is normal in size. The ascending aorta is mildly dilated. Aortic arch is normal in caliber. IVC is normal in size and collapses >50% with inspiration. Pericardium There is no pericardial effusion. Labs Result diagrams: 04/01/22 16:21 04/01/22 16:21 Labs: Laboratory Results - last 24 hr 04/01/22 04/01/22 04/01/22 16:21 16:21 17:28 WBC 11.19 H RBC 4.25 Hgb 12.8 Hct 37.1 MCV 87 MCH 30.1 MCHC 34.5 RDW 12.3 Plt Count 250 MPV 9.5 Immature Gran % 0.5 Neutrophils % 69.4 Lymphocytes % 22.1 Monocytes % 6.5 Eosinophils % 1.1 Basophils % 0.4 Nucleated RBC % 0.0 Absolute Neutrophils 7.77 H Absolute Lymphocytes 2.47 Absolute Monocytes 0.73 Absolute Eosinophils 0.12 Absolute Basophils 0.04 Sodium 129 L Potassium 4.1 Chloride 94 L Carbon Dioxide 28.1 Anion Gap 6.9 BUN 24 H Creatinine 1.1 H Estimated GFR/1.73 m2 49.25 Glucose 142 H Calcium 9.8 Magnesium 2.0 Total Bilirubin 0.3 AST 25 ALT 24 Alkaline Phosphatase 153 H Troponin I < 50 Total Protein 7.2 Albumin 3.4 TSH 1.25 Urine Color Yellow Urine Clarity Clear Urine pH 5.5 Ur Specific [place] >= 1.030 H Urine Protein 100 H Urine Ketones Trace H Urine Blood Negative Urine Nitrite Negative Urine Bilirubin Negative Urine Urobilinogen 0.2 Ur Leukocyte Esterase Negative Urine RBC 0-2 Urine WBC 3-5 Ur Epithelial Cells Moderate Urine Crystals Negative Urine Bacteria Rare Urine Casts 3-5 Hyaline Urine Mucus Moderate Ur Culture Indicated? No Urine Glucose 500 H COVID-19 Source SARS-CoV-2 (PCR) Influenza Type A (PCR) Influenza Type B (PCR) RSV (PCR) 04/01/22 04/01/22 18:05 19:16 WBC RBC Hgb Hct MCV MCH MCHC RDW Plt Count MPV Immature Gran % Neutrophils % Lymphocytes % Monocytes % Eosinophils % Basophils % Nucleated RBC % Absolute Neutrophils Absolute Lymphocytes Absolute Monocytes Absolute Eosinophils Absolute Basophils Sodium Potassium Chloride Carbon Dioxide Anion Gap BUN Creatinine Estimated GFR/1.73 m2 Glucose Calcium Magnesium Total Bilirubin AST ALT Alkaline Phosphatase Troponin I < 50 Total Protein Albumin TSH Urine Color Urine Clarity Urine pH Ur Specific [place] Urine Protein Urine Ketones Urine Blood Urine Nitrite Urine Bilirubin Urine Urobilinogen Ur Leukocyte Esterase Urine RBC Urine WBC Ur Epithelial Cells Urine Crystals Urine Bacteria Urine Casts Urine Mucus Ur Culture Indicated? Urine Glucose COVID-19 Source Nasopharynx SARS-CoV-2 (PCR) Negative Influenza Type A (PCR) Negative Influenza Type B (PCR) Negative RSV (PCR) Negative Last Vital Signs Temp 36.9 C 04/01/22 15:58 Pulse 71 04/01/22 20:23 Resp 12 04/01/22 20:33 BP 95/54 L 04/01/22 20:23 Pulse Ox 100 04/01/22 20:33
[2022-04-01] MEDS: Acetaminophen 325 MG TAB 650 MG PO (22:57)
[2022-04-01] MEDS: Amitriptyline 50 MG TAB 100 MG PO (22:57)
[2022-04-01] MEDS: Gabapentin 100 MG CAP PO (22:58)
[2022-04-02] VITALS (8 sets, daily range): BP systolic 125–174; BP diastolic 72–91; PULSE 71–77; RESP 18–20; TEMP 35.6–36.5; O2SAT 93–98
[2022-04-02 06:40] LABS: Abs Immature Grans 0.02 10^3/uL (0.0-0.06); Absolute Basophil Count 0.05 10^3/uL (0.0-0.2); Absolute Lymphocyte Count 2.95 10^3/uL (1.2-3.4); Absolute Monocyte Count 0.49 10^3/uL (0.1-0.8); Absolute Neutrophil Count 5.35 10^3/uL (1.2-6.7); Basophils % 0.6; Eosinophils % 2.2; HCT 37.5 % (36.0-46.0); HGB 12.9 g/dL (11.2-15.7); Immature Grans % 0.2; Lymphocytes % 32.6; MCH 30.4 pg (27.0-33.0); MCHC 34.4 % (32.0-36.0); MCV 88 fL (80-95); Monocytes % 5.4; RBC 4.25 10^6/uL (3.93-5.22); RDW 12.4 % (11.7-14.6); RDW-SD 39.8 fL; WBC 9.06 10^3/uL (4.4-10.8)
[2022-04-02 06:56] LABS: ALT 24 U/L (14-59); AST 22 U/L (15-37); Albumin 3.1 g/dL (3.4-5.0); Alkaline Phosphatase 145 U/L (46-116); Anion Gap 8.2 mmol/L (3-11); BUN 19 mg/dL (7-18); Bilirubin, Total 0.3 mg/dL (0.2-1.0); CO2 25.8 mmol/L (21.0-32.0); CREATININE 0.9 mg/dL (0.55-1.02); Chloride 95 mmol/L (98-107); Glucose 356 mg/dL (74-106); Potassium 4.3 mmol/L (3.5-5.1); Sodium 129 mmol/L (136-145); Total Protein 6.9 g/dL (6.4-8.2)
[2022-04-02 07:32] LABS: Diff Comment Diff Reviewed; Polychromasia Present
[2022-04-02 07:33] LABS: Poikilocytes 1+
[2022-04-02 08:02] LABS: Glucose 369 mg/dL (74-106)
[2022-04-02] MEDS: Gabapentin 100 MG CAP 200 MG PO (08:25)
[2022-04-02] MEDS: Ezetimibe 10 MG TAB PO (08:27)
[2022-04-02] MEDS: buPROPion-XL 150 MG TABCR PO (08:27)
[2022-04-02] MEDS: Lisinopril 10 MG TAB PO (08:27)
[2022-04-02] MEDS: Aspirin 81 MG CHEW PO (08:27)
[2022-04-02] MEDS: Ferrous Sulfate 325 MG TAB PO (08:28)
[2022-04-02] MEDS: Clopidogrel 75 MG TAB PO (08:28)
[2022-04-02] MEDS: Pantoprazole 40 MG TABCR PO (08:28)
--- NOTE | 2022-04-02 08:53 | INITIAL_ITS ---
- If Service Date Differs Date of service: 04/02/22 Time of Service: 08:53 Care Management Initial Assess REASON FOR HOSPITALIZATION:: TIA PAST MEDICAL HISTORY/PAST SURGICAL HISTORY:: Medical History . Carpal tunnel syndrome, bilateral. Chronic pain. Depression, major. Diabetes mellitus. adult onset. Diastolic dysfunction. Epicondylitis. H/O fall. H/O gastroesophageal reflux (GERD). Heart murmur, sy stolic. History of anemia. History of CVA (cerebrovascular accident). Insomnia. Lumbar radiculopathy. Nonorganic sleep disorder. Renal insufficiency. Right shoulder pain. Spinal stenosis. Syncope and collapse. Trochanteric bursitis, right hip. Weakness of right arm. Surgical History . H/O: hysterectomy. History of cholecystectomy PREVIOUS FUNCTIONAL STATUS/SOCIAL/FAMILY SUPPORTS:: Karie lives in a mobile home in [place], [place] with her Sreekanth. She had 2 children. She had a son who in a drowning accident 4 years ago and has a daughter who lives in [place]. She also has 2 grandchildren. 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 She uses a walker for ambulation and cares for her who had a stroke about 12 years ago. CURRENT FUNCTIONAL STATUS:: Elida was sitting up in bed when CM met with her. She was agreeeable to conversation and engaged well with CM. She provides acre for her who has a serious stroke in 2008. He is bed and wheelchair bound. Elida stated that she manages OK and does not need or want any services at home. ADVANCE DIRECTIVES:: none on file Has patient been provided with info about the portal/API?: Yes Did the patient sign up for the portal?: No CODE STATUS:: DNR/DNI INSURANCE COVERAGE / FINANCIAL ISSUES:: [employer] CURRENT HOME/COMMUNITY SERVICES/EQUIPMENT:: cane and a walker PRIMARY CARE PHYSICIAN:: Melodie Lay POTENTIAL DISCHARGE NEEDS:: Follow up with PCP and plan of care PATIENT/FAMILY EDUCATION NEEDS:: Review of discharge instructions, activity, limitations, medications, follow up plan; discuss Ask Me Three TRANSPORTATION:: via private vehicle with family PLAN:: Karie will jacek be discharged home with no new services when medically cleared by provider. She will follow up with her PCP and plan of care as presc ribed and transport with family. CM will continue to support Karie and assess for any discharge planning concerns.
[2022-04-02] MEDS: Insulin Aspart 300 UNITS/3 ML PEN SC ×4 (08:56→21:33)
--- NOTE | 2022-04-02 09:21 | W.PM.PROGNOT ---
Date of Service Date of service: 04/02/22 Time of Service: 08:21 Assessment and Plan Assessment and plan (1) TIA (transient ischemic attack): Start date: 04/01/22 Status: Acute Assessment and plan: Patient had a normal CT with CTA was not performed and she is already on Plavix and aspirin. MRI and echocardiogram are pending for Monday morning. Physical therapy consulted. Continue high-dose atorvastatin, lisinopril, plavix with aspirin. (2) Ambulatory dysfunction: Start date: 04/01/22 Status: Acute Assessment and plan: Positive Romberg with suggestion of acute posterior circulation disruption. Physical therapy evaluation and treat TIA as above. (3) Diabetes: Status: Chronic Assessment and plan: hemoglobin A1C pending continue carb controlled diet, meal and bedtime coverage as needed. will hold metformin, continue home insulin (4) Hyperlipidemia: Status: Chronic Assessment and plan: Put on high-dose atorvastatin with recurrent cerebral vascular events. discussed with DR Yancey Subjective Subjective Patient reports: no new complaints, feels better, tolerating liquids well and tolerating a regular diet Interval history since last seen: getting out of bed with one stand by assist. Exam Const General: cooperative, comfortable, no acute distress and ill appearing (older appearing than stated age) chronically Nutritional Appearance: obese Orientation: alert, awake, oriented x3 and other (poor historian) [facility] Head: normal to inspection Ears: hearing grossly normal bilaterally Mouth: moist mucous membranes Teeth and gingiva: edentulous Chest Chest: normal inspection of the chest Resp Effort & Inspection: normal respiratory effort, able to speak in complete sentences and no respiratory distress Auscultation: clear to auscultation bilaterally and diminished lung sounds (bases bilaterally) Cardio Rate: regular rate Rhythm: regular rhythm GI Inspection: normal to inspection and non-distended Palpation: soft and nontender Auscultation: normal bowel sounds Back/Spine/Pelvis Back: no CVA tenderness Thoracic/Lumbar Spine: thoracic and lumbar spine normal to inspection Skin General skin exam: no rashes or lesions noted Trauma: no lacerations or abrasions Neuro General: patient alert, patient awake and patient oriented x3 Cognition: abnormal cognition (mild impairment) Speech: speech normal Extrem General: normal to inspection and no pedal edema Psych Appearance: grossly normal Mental Status: mental status grossly normal Speech and Movement: speech and movement normal Objective Last Vital Signs Temp 36 C L 04/02/22 07:45 Pulse 74 04/02/22 07:45 Resp 18 04/02/22 07:45 BP 174/79 H 04/02/22 07:45 Pulse Ox 94 04/02/22 07:45 Laboratory Results - last 24 hr 04/01/22 04/01/22 04/01/22 16:21 16:21 17:28 WBC 11.19 H RBC 4.25 Hgb 12.8 Hct 37.1 MCV 87 MCH 30.1 MCHC 34.5 RDW 12.3 Plt Count 250 MPV 9.5 Immature Gran % 0.5 Neutrophils % 69.4 Lymphocytes % 22.1 Monocytes % 6.5 Eosinophils % 1.1 Basophils % 0.4 Nucleated RBC % 0.0 Absolute Neutrophils 7.77 H Absolute Lymphocytes 2.47 Absolute Monocytes 0.73 Absolute Eosinophils 0.12 Absolute Basophils 0.04 RBC Morphology Polychromasia Poikilocytosis Sodium 129 L Potassium 4.1 Chloride 94 L Carbon Dioxide 28.1 Anion Gap 6.9 BUN 24 H Creatinine 1.1 H Estimated GFR/1.73 m2 49.25 Glucose 142 H Calcium 9.8 Magnesium 2.0 Total Bilirubin 0.3 AST 25 ALT 24 Alkaline Phosphatase 153 H Troponin I < 50 Total Protein 7.2 Albumin 3.4 TSH 1.25 Urine Color Yellow Urine Clarity Clear Urine pH 5.5 Ur Specific [place] >= 1.030 H Urine Protein 100 H Urine Ketones Trace H Urine Blood Negative Urine Nitrite Negative Urine Bilirubin Negative Urine Urobilinogen 0.2 Ur Leukocyte Esterase Negative Urine RBC 0-2 Urine WBC 3-5 Ur Epithelial Cells Moderate Urine Crystals Negative Urine Bacteria Rare Urine Casts 3-5 Hyaline Urine Mucus Moderate Ur Culture Indicated? No Urine Glucose 500 H COVID-19 Source SARS-CoV-2 (PCR) Influenza Type A (PCR) Influenza Type B (PCR) RSV (PCR) 04/01/22 04/01/22 04/02/22 18:05 19:16 06:00 WBC 9.06 RBC 4.25 Hgb 12.9 Hct 37.5 MCV 88 MCH 30.4 MCHC 34.4 RDW 12.4 Plt Count MPV Immature Gran % 0.2 Neutrophils % 59.0 Lymphocytes % 32.6 Monocytes % 5.4 Eosinophils % 2.2 Basophils % 0.6 Nucleated RBC % 0.0 Absolute Neutrophils 5.35 Absolute Lymphocytes 2.95 Absolute Monocytes 0.49 Absolute Eosinophils 0.20 Absolute Basophils 0.05 RBC Morphology See Below Polychromasia Present Poikilocytosis 1+ Sodium Potassium Chloride Carbon Dioxide Anion Gap BUN Creatinine Estimated GFR/1.73 m2 Glucose Calcium Magnesium Total Bilirubin AST ALT Alkaline Phosphatase Troponin I < 50 Total Protein Albumin TSH Urine Color Urine Clarity Urine pH Ur Specific [place] Urine Protein Urine Ketones Urine Blood Urine Nitrite Urine Bilirubin Urine Urobilinogen Ur Leukocyte Esterase Urine RBC Urine WBC Ur Epithelial Cells Urine Crystals Urine Bacteria Urine Casts Urine Mucus Ur Culture Indicated? Urine Glucose COVID-19 Source Nasopharynx SARS-CoV-2 (PCR) Negative Influenza Type A (PCR) Negative Influenza Type B (PCR) Negative RSV (PCR) Negative 04/02/22 04/02/22 06:12 07:47 WBC RBC Hgb Hct MCV MCH MCHC RDW Plt Count MPV Immature Gran % Neutrophils % Lymphocytes % Monocytes % Eosinophils % Basophils % Nucleated RBC % Absolute Neutrophils Absolute Lymphocytes Absolute Monocytes Absolute Eosinophils Absolute Basophils RBC Morphology Polychromasia Poikilocytosis Sodium 129 L Potassium 4.3 Chloride 95 L Carbon Dioxide 25.8 Anion Gap 8.2 BUN 19 H Creatinine 0.9 Estimated GFR/1.73 m2 >= 60.00 Glucose 356 H 369 H Calcium 9.0 Magnesium Total Bilirubin 0.3 AST 22 ALT 24 Alkaline Phosphatase 145 H Troponin I Total Protein 6.9 Albumin 3.1 L TSH Urine Color Urine Clarity Urine pH Ur Specific [place] Urine Protein Urine Ketones Urine Blood Urine Nitrite Urine Bilirubin Urine Urobilinogen Ur Leukocyte Esterase Urine RBC Urine WBC Ur Epithelial Cells Urine Crystals Urine Bacteria Urine Casts Urine Mucus Ur Culture Indicated? Urine Glucose COVID-19 Source SARS-CoV-2 (PCR) Influenza Type A (PCR) Influenza Type B (PCR) RSV (PCR)
--- NOTE | 2022-04-02 10:23 | IN_ITS ---
Date of service: 04/02/22 Time of Service: 10:00 PT Notes Visit Reasons: TIA, Cerebellar Dysfunction Inpatient Physical Therapy Evaluation Date: 04/02/22 Referring Doctor: Jaime Sheikh PT Orders: PT CONSULT: Evaluate and treat Precautions: Standard Patient Profile/Admitting Diagnosis: Orders received for this 71 year old female with hx of moderate health conditions affecting function. Patient apparently was starting to get more unstable in her walking and standing, and also was falling. She was brought to the hospital and multiple scans were unclear as to the exact etiology. There will be more additional studies but the leading diagnosis appears to be TIA. 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 Carpal tunnel syndrome, bilateral Chronic pain Depression, major Diabetes mellitus adult onsetDiastolic dysfunction Epicondylitis H/O fall H/O gastroesophageal reflux (GERD) Heart murmur, systolic History of anemia History of CVA (cerebrovascular accident) Insomnia Lumbar radiculopathy Nonorganic sleep disorder Renal insufficiency Right shoulder pain Spinal stenosis Syncope and collapse Trochanteric bursitis, right hip Weakness of right arm Surgical History? H/O: hysterectomy History of cholecystectomy Social History/Home Situation: Patient lives in [place] in a mobile home trailer. She lives with her and is the primary caregiver. She does use a 2WW at baseline. She has family close by that is available and supportive per Case Management. Equipment Owned/DME: 2WW Subjective: Patient states that she still feels a little off in her head, and her back has been bothering her a lot more recently. Objective: Patient sitting up in recliner watching TV. No medical lines currently in place Mental Status: Well oriented and alert to person, place, and time Pain: 6/10 through back ROM: Right Upper Extremity: WFL Left Upper Extremity: WFL Right Lower Extremity: WFL Left Lower Extremity: WFL Strength: Right Upper Extremity: Globally 4+/5 Left Upper Extremity: Globally 4+/5 Right Lower Extremity: Globally 4+/5 Left Lower Extremity: Globally 4+/5 Sit-stand: CGA to 2WW Stand-sit: CGA Gait: Assistance-- CGA Distance-- 5 feet fwd/bwd Device-- 2WW Balance: Static Sitting: Normal Dynamic Sitting: Normal Static Standing: Fair Dynamic Standing: Poor Special Tests: Tinetti balance and Gait assessment is 10/26 Informed Consent/Education: Patient instructed in purpose of PT consult and plan of care. ASSESSMENT: Patient is a 71 year old female Admitted with TIA Patient presents with the following impairment level findings: Balance issues, tinetti 10/26, ambulation intolerance, movement discoordination Pt will benefit from skilled therapy intervention in order to remedy their functional limitations and restore patient to a more appropriate and stable functional level. Impairments are contributing to the following functional limitations: Tinetti, 10/26 Patient is assessed as a Moderate complexity Initial evaluation based on the following: History: see above Examination: see above Presentation: Evolving Decision Making: moderate based on Tinetti of 10/26 Goals: Goals X1 week 1. Supine-Sit Independent 2. Sit-Supine Independent 3. Sit-Stand Independent 4. Stand-Sit Independent 5. Bed-Chair Independent 6. Gait Independent with 2WW up to 100 feet 7: Stairs 3 steps with supervision Plan of Care/Treatment Plan: 1-2x/day, 7 days/week x 1 week. Plan of care has been reviewed with the [employer] SUPERVISOR providing the service under Physical Therapy direction. Initiate Physical Therapy intervention for strengthening, bed mobility, transfers, gait, stairs, balance training, use of assistive device. DISCHARGE RECOMMENDATIONS: ( ) Home with no services ( ) Home with services [specify] ( X ) Home with outpatient PT, if inpatient functional goals are able to be met with safe demonstration of both transfer and ambulation ability. ( ) SNF for continued rehabilitation ( ) Intermediate Care ( ) SNF versus LTC based on ability to participate and progress TREATMENT CODE/TIME: Moderate complexity initial evaluation 16131, 10am 25 min of care Estevan Akins DPT
[2022-04-02] MEDS: Acetaminophen 325 MG TAB 650 MG PO (11:00)
[2022-04-02 12:18] LABS: Glucose 388 mg/dL (74-106)
[2022-04-02 12:21] LABS: Hemoglobin A1C 13.2 % (<5.7)
[2022-04-02] MEDS: Atorvastatin 40 MG TAB 80 MG PO (21:34)
[2022-04-02] MEDS: Gabapentin 100 MG CAP PO (21:34)
[2022-04-02] MEDS: Amitriptyline 50 MG TAB 100 MG PO (21:34)
[2022-04-03] VITALS (9 sets, daily range): BP systolic 121–176; BP diastolic 72–91; PULSE 70–80; RESP 18; TEMP 35.7–36.8; O2SAT 92–96
[2022-04-03] MEDS: buPROPion-XL 150 MG TABCR PO (08:30)
[2022-04-03] MEDS: Ezetimibe 10 MG TAB PO (08:30)
[2022-04-03] MEDS: Pantoprazole 40 MG TABCR PO (08:31)
[2022-04-03] MEDS: Aspirin 81 MG CHEW PO (08:31)
[2022-04-03] MEDS: Lisinopril 10 MG TAB PO (08:31)
[2022-04-03] MEDS: Ferrous Sulfate 325 MG TAB PO (08:31)
[2022-04-03] MEDS: Gabapentin 100 MG CAP 200 MG PO ×2 (08:31→21:41)
[2022-04-03] MEDS: Clopidogrel 75 MG TAB PO (08:32)
[2022-04-03] MEDS: Insulin Aspart 300 UNITS/3 ML PEN SC ×5 (08:32→21:41)
--- NOTE | 2022-04-03 09:52 | PGE_ITS ---
Date of Service Date of service: 04/03/22 Time of Service: 08:52 Assessment and Plan Assessment and plan (1) TIA (transient ischemic attack): Start date: 04/03/22 Status: Acute Assessment and plan: Patient had a normal CT; she is already on Plavix and aspirin. MRI, carotid doppler and echocardiogram are pending for Monday morning. Physical therapy consulted. Continue high-dose atorvastatin, lisinopril, plavix with aspirin. (2) Ambulatory dysfunction: Start date: 04/03/22 Status: Acute Assessment and plan: Positive Romberg with suggestion of acute posterior circulation disruption. Physical therapy evaluation and treat TIA as above. (3) Diabetes: Status: Chronic Assessment and plan: hemoglobin A1C 13.2 continue carb controlled diet, meal and bedtime coverage as needed. will hold metformin, continue home insulin glucose 388, insulin adjusted per recommendation of Dr. Yancey (4) Hyperlipidemia: Status: Chronic Assessment and plan: Put on high-dose atorvastatin with recurrent cerebral vascular events. discussed with Dr Yancey Subjective Subjective Patient reports: no new complaints, feels better, tolerating liquids well and tolerating a regular diet Interval history since last seen: getting out of bed with one stand by assist, no complaints. Exam Const General: cooperative, comfortable, no acute distress and ill appearing (older appearing than stated age) chronically Nutritional Appearance: obese Orientation: alert, awake, oriented x3 and other (poor historian) [facility] Head: normal to inspection Ears: hearing grossly normal bilaterally Mouth: moist mucous membranes Teeth and gingiva: edentulous Chest Chest: normal inspection of the chest Resp Effort & Inspection: normal respiratory effort, able to speak in complete sentences and no respiratory distress Auscultation: clear to auscultation bilaterally and diminished lung sounds (bases bilaterally) Cardio Rate: regular rate Rhythm: regular rhythm GI Inspection: normal to inspection and non-distended Palpation: soft and nontender Auscultation: normal bowel sounds Back/Spine/Pelvis Back: no CVA tenderness Thoracic/Lumbar Spine: thoracic and lumbar spine normal to inspection Skin General skin exam: no rashes or lesions noted Trauma: no lacerations or abrasions Neuro General: patient alert, patient awake and patient oriented x3 Cognition: abnormal cognition (mild impairment) Speech: speech normal Extrem General: normal to inspection and no pedal edema Psych Appearance: grossly normal Mental Status: mental status grossly normal Speech and Movement: speech and movement normal Objective Last Vital Signs Temp 35.7 C L 04/03/22 07:17 Pulse 74 04/03/22 07:17 Resp 18 04/03/22 07:17 BP 152/89 H 04/03/22 07:17 Pulse Ox 96 04/03/22 07:17 Laboratory Results - last 24 hr 04/02/22 04/02/22 11:50 11:50 Glucose 388 H Hemoglobin A1c 13.2 H Reviewed Pertinent PMH: Yes
--- NOTE | 2022-04-03 11:52 | PT.INTREAT ---
PT Notes Visit Reasons: TIA, Cerebellar Dysfunction SUBJECTIVE: Pt in recliner when approached for therapy this morning, pt agreed to participating with therapy but refused to go out of her room until pt had a shower. OBJECTIVE:? PAIN: Patient had no complaints of pain. ? TRANSFERS:? Sit-stand: SBA Stand-sit: SBA ? GAIT? Assistive Device: FWW Weight bearing: FWW Assist: SBA Distance: 100' with 90 degree turns to manage tight quarters of pt room. ? Deviation: slow steady gait ASSESSMENT: Pt able to perform multiple sit to stand and functional transfers going back and forth pt recliner and EOB SBA. PLAN: Continue with global strengthening and mobility training for improved mobility and activity tolerance, as tolerated. TREATMENT CODE/TIME: 25 minutes; 20181 x2 (10:35 to 10:50)
[2022-04-03] MEDS: Acetaminophen 325 MG TAB 650 MG PO (21:40)
[2022-04-03] MEDS: Atorvastatin 40 MG TAB 80 MG PO (21:40)
[2022-04-03] MEDS: Amitriptyline 50 MG TAB 100 MG PO (21:44)
[2022-04-04 03:48] VITALS: BP 161/78; PULSE 71; RESP 18; TEMP 36.4; O2SAT 94
[2022-04-04 06:37] LABS: Abs Immature Grans 0.05 10^3/uL (0.0-0.06); Absolute Basophil Count 0.05 10^3/uL (0.0-0.2); Absolute Eosinophil Count 0.24 10^3/uL (0.0-0.7); Absolute Lymphocyte Count 2.54 10^3/uL (1.2-3.4); Absolute Monocyte Count 0.57 10^3/uL (0.1-0.8); Absolute Neutrophil Count 4.54 10^3/uL (1.2-6.7); Basophils % 0.6; HCT 37.6 % (36.0-46.0); HGB 12.8 g/dL (11.2-15.7); Immature Grans % 0.6; Lymphocytes % 31.8; MCH 29.8 pg (27.0-33.0); MCV 87 fL (80-95); MPV 9.4 fL (8.0-11.0); Monocytes % 7.1; Neutrophils % 56.9; Platelet Count 213 10^3/uL (130-400); RDW 12.2 % (11.7-14.6); RDW-SD 39.1 fL; WBC 7.99 10^3/uL (4.4-10.8)
[2022-04-04 06:51] LABS: Anion Gap 6.4 mmol/L (3-11); BUN 18 mg/dL (7-18); CO2 27.6 mmol/L (21.0-32.0); CREATININE 0.9 mg/dL (0.55-1.02); Chloride 97 mmol/L (98-107); Glucose 265 mg/dL (74-106); Sodium 131 mmol/L (136-145)
[2022-04-04 07:08] VITALS: PULSE 66
[2022-04-04 07:35] VITALS: BP 152/92; PULSE 70; RESP 19; TEMP 36.4; O2SAT 96
--- NOTE | 2022-04-04 08:00 | DI.MRI_ITS ---
Exam(s) MR BRAIN WO EXAM: MR BRAIN WO CLINICAL HISTORY: TIA with acute cerebellar dysfunction TECHNIQUE: Multiplanar multisequence MRI of the brain was performed. COMPARISON: CT CT HEAD WO from 04/01/2022 FINDINGS: There is an area of encephalomalacia in the left frontal lobe. No acute intracranial hemorrhage, mas s or infarct is seen. There is mild atrophy. The ventricles are normal in size. There are high signal lesions in the white matter consistent with chronic microvascular changes.. The vascular flow voids appear intact. The orbits and pituitary are unremarkable as visualized. The sinuses and mastoid air cells are clear. IMPRESSION: Old left frontal infarct. No acute abnormality identified. DATA REPOSITORY:
--- NOTE | 2022-04-04 08:00 | DI.US_ITS ---
Exam(s) US CAROTID EXAM: US CAROTID CLINICAL HISTORY: TIA with cerebral dysfunction. TECHNIQUE: Ultrasound carotids performed using grayscale, color-flow, and spectral Doppler imaging. COMPARISON: US CAROTID ULTRASOUND from 07/26/2017 FINDINGS: RIGHT CAROTID ARTERY: Plaque: Mild plaque at the bulb. Velocity elevation: None. LEFT CAROTID ARTERY: Plaque: Focal partially calcified plaque left common carotid bulb and external carotid artery.. Velocity elevation: Minimally elevated velocities in the proximal ICA and ECA. The VERTEBRAL ARTERIES: Antegrade flow. Measurements: R Bulb: 52.7cm/s PS / 10.3cm/s ED R CCA: 74.6cm/s PS / 15.4cm/s ED R ECA: 55.9cm/s PS / 9cm/s ED R ICA Prox: 48.8cm/s PS /14.1cm/s ED R ICA Mid: 64.3cm/s PS / 20.6cm/s ED R ICA Distal: 68.8cm/s PS /19.9cm/s ED R Vert: 36cm/s PS / 13.5cm/s ED R SVR: 0.72 R DVR: 1.63 L Bulb: PS / ED L CCA: 55.3cm/s PS / 11.6cm/s ED L ECA: 115.7cm/s PS /14.8cm/s ED L ICA Prox:87.9cm/s PS / 16.7cm/s ED L ICA Mid: 110.15cm/sPS / 22.2cm/s ED L ICA Distal: 80.5cm/s PS / 26.8cm/s ED L Vert: 41.2cm/s PS / 13cm/s ED L SVR: 2.09 L DVR: 1.99 IMPRESSION: Plaque at the common carotid bulbs, left greater than right causing mild stenosis, less than 50 perce nt.. Criteria for Carotid Stenosis: Normal: ICA PSV <125 cm/s no plaque or intimal thickening is visible. <50% stenosis: ICA PSV <125 cm/s and plaque or intimal thickening is visible. 50-69% stenosis: ICA PSV is 125-250 cm/s and plaque is visible. >70% stenosis to near occlusion: ICA PSV >250 cm/s with visible plaque and luminal narrowing. DATA REPOSITORY:
[2022-04-04] MEDS: Aspirin 81 MG CHEW PO (08:32)
[2022-04-04] MEDS: Lisinopril 10 MG TAB PO (08:33)
[2022-04-04] MEDS: Ezetimibe 10 MG TAB PO (08:33)
[2022-04-04] MEDS: Insulin Aspart 300 UNITS/3 ML PEN SC ×6 (08:33→17:10)
[2022-04-04] MEDS: buPROPion-XL 150 MG TABCR PO (08:33)
[2022-04-04] MEDS: Pantoprazole 40 MG TABCR PO (08:33)
[2022-04-04] MEDS: Clopidogrel 75 MG TAB PO (08:33)
[2022-04-04] MEDS: Gabapentin 100 MG CAP PO (08:33)
[2022-04-04] MEDS: Ferrous Sulfate 325 MG TAB PO (08:33)
--- NOTE | 2022-04-04 11:18 | W.INDIABCONS ---
Date of service: 04/04/22 Time of Service: 10:18 Diabetes Inpatient Consult Reason for Visit: dm DESCRIPTION/ASSESSMENT: 71 year old female admitted with TIA with hx of DM2, HTN, HLD. A1C: 13.2% (04/02/22). Home DM meds per [facility]: levemire 42 u qd, rybelsus 7 mg1 tab qd, metformin 1000 mg BID, 50 units wolfgang at breakfast, 20 u wolfgang at lunch and dinner . Had Vladimir 2 CGM training at PCP on 03/30/22. Has Vladimir 2 continuous glucose monitor. Unclear if she has been taking meds as prescribed. Insulin prescription - 110u Total Daily Dose very high in view of body weight. Has had Dm2 since 2006. Met with Karie today, she was having difficulty with word finding s/p TIA. Unable to provide any education due to cognition at this time. At very high risk of complications related to uncontrolled diabetes. Following diabetic/heart healthy diet with excellent intake. INTERVENTION: will ask for referral for outpatient counseling s/p discharge to review CGM and insulin prescription. Most likely would benefit from home health nursing to assist with Dm and insulin prescription. PLAN: Karie to make outpatient nutrition appointment following discharge. Time Spent in Nutritional Counseling and Treatment: 10
[2022-04-04 11:54] VITALS: BP 163/92; PULSE 75; RESP 18; TEMP 36.4; O2SAT 98
--- NOTE | 2022-04-04 12:58 | W.PM.DS.N ---
Date of service: 04/04/22 Time of Service: 15:36 DS: Diagnosis Discharge Diagnosis (1) TIA (transient ischemic attack): Status: Acute Asessment and Plan: MRI unchanged continue plavix only for stroke prevention. (2) Ambulatory dysfunction: Status: Acute Asessment and Plan: resolved and at baseline (3) Diabetes: Status: Chronic Asessment and Plan: poorly controlled non compliant (4) Hyperlipidemia: Status: Chronic Discharge Plan Disposition Patient Disposition: HOME Condition: Stable Discharge Details Reason For Visit: TIA,Cerebellar Dysfunction Admit Date/Time: 04/01/22 19:33 Admit Provider: Jaime Sheikh Attending Provider: Jaime Sheikh Primary Care Provider: Melodie Lay V Hospital Course Hospital Course: This is a pleasant 71-year-old female with past medical history pertinent for hypothyroidism, hypertension, diabetes, stroke, depression, hyperlipidemia, brought to the ED by EMS with concern for general malaise.? Patient reports that she has been feeling unwell.? Describes falling for unknown reason, denies striking her head but has been having a left-sided chest and abdominal discomfort.? Patient's work-up in the ED revealed mild leukocytosis, chronic stable appearing hyponatremia, no evidence to suggest a UTI, COVID-19 and influenza negative with no abnormalities on imaging.? Patient was notably fatigued appearing, weak and had difficulty with balance when we attempted to ambulate her.? She did have a positive Romberg and there was some concern of a posterior stroke. She is currently on aspirin and Plavix though on omeprazole which may block Plavix.? As symptoms began 24 hours prior to arrival, she was outside of the window for any intervention if this was an acute CVA.? With the significant contrast shortage and this ultimately unlikely changing the patient plan of care, the ED provider did not feel that CTA is appropriate at this time.? Rather, patient may ultimately need an MRI patient not able to get at this time.? She was admitted for her significant ambulatory dysfunction and balance difficulty.? 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 She remained medically stable throughout the weekend. She was safely reambulated with no further symptoms. She was at her baseline and MRI today unremarkable. She was seen by neurology with no new stroke management recommendations, she does not need dual antiplatelet therapy and is advised to discuss with pcp. She was also noted to have poorly controlled diabetes with A1C of 13.2. There is question of med compliance but patient declines home health services. also omeprazole was changed to protonix d/t medication interaction with plavix discharge discussed with DR Yancey Home Meds and New Rx's Prescriptions: New pantoprazole [Protonix] 20 mg tablet,delayed release (DR/EC) 20 mg PO DAILY Qty: 30 0RF Continued metformin [Glucophage] 1,000 mg Tablet 1,000 mg PO BID clopidogrel [Plavix] 75 mg Tablet 75 mg PO DAILY ezetimibe [Zetia] 10 mg Tablet 10 mg PO DAILY cholecalciferol (vitamin D3) [Vitamin D3] 1,000 unit (25 mcg) Tablet 1,000 unit PO BID lisinopril 5 MG tablet 10 mg PO DAILY calcium carbonate [Oyster Shell Calcium 500] 500 MG tablet 500 mg PO BID ferrous sulfate 325 MG tablet,delayed release (DR/EC) 325 mg PO DAILY bupropion HCl [Wellbutrin XL] 150 MG tablet extended release 24 hr 150 mg PO DAILY amitriptyline 100 mg tablet 100 mg PO QHS atorvastatin [Lipitor] 40 MG tablet 40 mg PO QPM Qty: 60 0RF diclofenac sodium 1 % gel 4 gm TP BID PRN insulin aspart U-100 [Novolog U-100 Insulin aspart] 100 unit/mL solution See Rx Instructions .ROUTE .COMPLEX Label Comments: INJECT 50 UNITS UNDER THE SKIN BEFORE BREAKFAST, 20 UNITS BEOFRE LUNCH, AND 20 UNITS BEFORE DINNER Rx Instructions: Inject 20-50 units subcutaneously three times a day. Inject 50 units before breakfast, 20 units before lunch and 20 units before dinner Levemir U-100 Insulin 100 unit/mL solution 42 unit SUBCUT DAILY AM Label Comments: INJECT 40 UNITS UNDER THE SKIN IN THE MORNING gabapentin 100 mg capsule See Rx Instructions .ROUTE .COMPLEX Label Comments: START WITH 1 CAP AT BEDTIME AND IN 3 TO 4 DAYS INCREASE TO 2 AT BEDTIME, THEN IN ANOTHER 3 TO 4 DAYS TRY 1 IN THE MORNING AND 2 AT BEDTIME. Rx Instructions: Take 1 capin the AM and 2 caps at HS Rybelsus 7 mg tablet 1 tab PO DAILY Label Comments: TAKE ONE TABLET BY MOUTH EVERY DAY Held aspirin 81 mg Tablet,Chewable 81 mg PO DAILY Hold Instructions: discuss with pcp if to resume if indication, no recommended per neurology for stroke prevention/treatment at this time. Discontinued omeprazole magnesium [Prilosec OTC] 20 MG tablet,delayed release (DR/EC) 20 mg PO DAILY Discharge Instructions Instructions: Fall Prevention (DC) Additional Instructions: Your MRI showed no new findings to explain your symptoms Your should take all medication as directed Your hemoglobin A1C is elevated at 13.2 which shows poor control of your diabetes. please discuss with your primary care provider and diabetic education. You have been offered home health services which you declined, if you change your mind contact pcp office to arrange. It would help with medication oversight as we suspect medication compliance issues and it would be helpful for them to review prescriptions with you. Stand Alone Forms: Nursing Discharge Form Referrals: Melodie Lay MD [Primary Care Provider] - 04/15/22 9:15 am Activity:: Activity as Tolerated Equipment/Supplies:: No Equipment Needed Diet:: Carb Counting Discharge Orders Discharge Orders: Discharge Order (Routine); Ordered 04/04/22 Ordered By: Ana Min DS: Summary Time Spent with Patient providing and/or coordinating discharge services: Greater than 30 minutes Status at Discharge Functional status at discharge: independent ambulation Overall status at discharge: patient is back to baseline Mental Status: mental status grossly normal Speech and Movement: speech and movement normal Mood: congruent mood Affect: normal affect Exam Const General: cooperative, comfortable, no acute distress and ill appearing (older appearing than stated age) chronically Nutritional Appearance: obese Orientation: alert, awake, oriented x3 and other (poor historian) [facility] Head: normal to inspection Ears: hearing grossly normal bilaterally Mouth: moist mucous membranes Teeth and gingiva: edentulous Chest Chest: normal inspection of the chest Resp Effort & Inspection: normal respiratory effort, able to speak in complete sentences and no respiratory distress Auscultation: clear to auscultation bilaterally and diminished lung sounds (bases bilaterally) Cardio Rate: regular rate Rhythm: regular rhythm GI Inspection: normal to inspection and non-distended Palpation: soft and nontender Auscultation: normal bowel sounds Back/Spine/Pelvis Thoracic/Lumbar Spine: thoracic and lumbar spine normal to inspection Skin General skin exam: no rashes or lesions noted Trauma: no lacerations or abrasions Neuro General: patient alert, patient awake, patient oriented x3, moves all extremities and no focal motor deficits (some mild right sided pain from previous stroke at baseline) Cognition: abnormal cognition (mild impairment) Speech: speech normal Extrem General: normal to inspection and no pedal edema Psych Appearance: grossly normal Mental Status: mental status grossly normal Speech and Movement: speech and movement normal Mood: congruent mood Affect: normal affect DS: Data Vitals/I&O Vitals and I&O: Vital Signs Temperature 36.4 C L 04/04/22 11:54 Temperature Source Tympanic 04/04/22 11:54 Pulse 75 04/04/22 11:54 Pulse Rhythm Regular 04/04/22 08:30 Respiratory Rate 18 04/04/22 11:54 Respiratory Effort Non-Labored 04/04/22 08:30 Respiratory Depth Normal 04/04/22 08:30 Respiratory Pattern Normal 04/04/22 08:30 Blood Pressure 163/92 H 04/04/22 11:54 Blood Pressure Position Sitting 04/01/22 15:58 Pulse Oximetry 98 04/04/22 11:54 Oxygen Delivery Method Room Air 04/04/22 11:54 Oxygen Flow Rate 0 04/04/22 11:54 Pain Level 0 04/04/22 03:48 Comment 04/03/22 19:55 Intake & Output 04/03/22 04/04/22 04/04/22 23:59 11:59 23:59 Intake Total 1010 / 1010 280 / 280 Output Total 650 / 950 1300 / 1300 Balance 360 / 60 -1020 / -1020 Weight 72.5 kg Intake: Oral 1010 / 1010 280 / 280 Output: Urine 650 / 950 1300 / 1300 Other: Urine Color Yellow Yellow Urine Appearance Clear Clear Urine Odor None None Voiding Methods Toilet Toilet Data Completed and Pending Labs on day of discharge: Labs from last 24 hours 04/04/22 04/04/22 06:00 06:00 WBC 7.99 RBC 4.30 Hgb 12.8 Hct 37.6 MCV 87 MCH 29.8 MCHC 34.0 RDW 12.2 Plt Count 213 MPV 9.4 Immature Gran % 0.6 Neutrophils % 56.9 Lymphocytes % 31.8 Monocytes % 7.1 Eosinophils % 3.0 Basophils % 0.6 Nucleated RBC % 0.0 Absolute Neutrophils 4.54 Absolute Lymphocytes 2.54 Absolute Monocytes 0.57 Absolute Eosinophils 0.24 Absolute Basophils 0.05 Sodium 131 L Potassium 4.0 Chloride 97 L Carbon Dioxide 27.6 Anion Gap 6.4 BUN 18 Creatinine 0.9 Estimated GFR/1.73 m2 >= 60.00 Glucose 265 H Calcium 9.0 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 (Acute) Depression (Acute) Hyperlipidemia (Chronic) Medical History Carpal tunnel syndrome, bilateral Chronic pain Depression, major Diabetes mellitus adult onset Diastolic dysfunction Epicondylitis H/O fall H/O gastroesophageal reflux (GERD) Heart murmur, systolic History of anemia History of CVA (cerebrovascular accident) Insomnia Lumbar radiculopathy Nonorganic sleep disorder Renal insufficiency Right shoulder pain Spinal stenosis Syncope and collapse Trochanteric bursitis, right hip Weakness of right arm Surgical History H/O: hysterectomy History of cholecystectomy Social History Smoking/Tobacco Use Status: Former Tobacco Use Smoking risk assessment performed?: Yes Alcohol Intake: never Drug use: Never Substance use type: does not use Household members: spouse Housing: house Current gender identity: female Gayatri/Congregational: Moravian Do you feel safe at home: Yes Do you feel safe in your relationship?: Yes
--- NOTE | 2022-04-04 13:21 | PT.INTREAT ---
Date of service: 04/04/22 Time of Service: 12:58 PT Notes Visit Reasons: TIA, Cerebellar Dysfunction Inpatient Physical Therapy Treatment Note [facility] Date: 04/04/2022 PRECAUTIONS: Activity as tolerated SUBJECTIVE: Karie is pleasant and agreeable to participating in PT. She states that she is feeling back to her baseline and hopes to go home today. OBJECTIVE: PAIN: No c/o pain BED MOBILITY/TRANSFERS Supine-sit: I with HOB flat Sit-supine: I with HOB flat Sit-stand: I Stand-sit: I Bed-Chair: I Chair-bed: I GAIT Assistive Device: FWW Weight bearing: Full Assist: S Distance: 200' ASSESSMENT: Patient tolerated session well, without complaint. She demonstrates independence with short-distance ambulation with FWW support and with bed mobility and transfers at this time. PLAN: Patient to discharge to home later today, per provider. Recommend outpatient PT for continued general conditioning. TREATMENT CODE/TIME: 13 minutes; 45201 (12:58)
[2022-04-04 15:18] VITALS: BP 153/82; PULSE 76; RESP 18; TEMP 36.6; O2SAT 96
[2022-04-04 15:29] VITALS: PULSE 77
--- NOTE | 2022-04-04 16:33 | NCONE_ITS ---
Date of service: 04/04/22 Time of Service: 16:33 Assessment and Plan Assessment and plan (1) Falling: Status: Acute Assessment and plan: #1. Falls. Unclear etiology. No new stroke. Neurological exam is unremarkable. She has improved with PT. #2. Prior stoke. She had an incomplete work-up in 2017, though etiology felt to be due to L carotid stenosis. Comparison of CUS from then and now shows reduction in velocity from 141cm/s to 110cm/s. From secondary stroke prevention, she needs only clopidogrel 75mg daily along with statin, good BP and DM control. Dual anti-platelets is not supported long-term in secondary stroke prevention. Ms. Ruiz is unclear why or when aspirin was added in addition to clopidogrel. She should discuss with PCP as outpatient if she needs aspirin additionally. Goal LDL <70. Goal SBP 120-140. Goal A1c <7. She would like to follow-up in neurology clinic as needed. History of Present Illness History of Present Illness Chief Complaint: falls Narrative: Handedness: right. HPI: Ms. Ruiz is a 71 year-old woman with HTN, HLD, DM2, prior stroke, gERD, depression, chronic hyponatremia, hypothyroidism, and chronic low back pain. Ms. Ruiz was admitted 04/01/22 with 1 day of new falls. She was previously walking independently. Noted recurrent falls backwards. When she first came to the ER, she was noting neck and low back pain, the latter of which she has chronically treated with daily APAP; and both of which have since resolved. She did feel like both legs were equally weak, but both have also become stronger. She has no numbness in her feet or legs. She has undergone the work-up as below. She has known medication/medical non- adherence. Interestingly, she was admitted to [facility] in March 2021 with exact same presentation. Etiology unknown at that time as well and she improved with P T/adjusting of her insulin. With PT, she feels much steadier. She is hoping to go home today. PT has recommended outpatient PT at discharge. Work-up: -CTH (04/01/22): old left frontal stroke. I reviewed these images personally and this is my personal interpretation. -MRI brain w/o (04/04/22): Old left frontal stroke with moderate-severe chronic vascular changes. I reviewed these images personally and this is my personal interpretation. -CUS (04/04/22): no significant stenosis. -Labs: Na 129-129-131, A1c 13.2, AlkP 153 -145, TSH 1.25, trop x2 neg, UA trace ketones; no AG I otherwise previously met. Ms. Ruiz in 2017 at the time of her left frontal stroke manifested by expressive greater than receptive global aphasia and dysphagia complicated by pneumonia. The etiology of her stroke was felt to be due to L carotid stenosis as seen on CUS. Though she was also noted to have prominent intracranial stenosis in the L MCA distribution as well. Recommendations at that time were for CTA neck as further work-up, but she left AMA and never followed-up as an outpatient. At the time of her stroke, she was switched from ASA to clopidogrel for secondary stroke prevention. She is not sure when aspirin was re-started. She believes it was re-started by her PCP but is unsure why. 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 (Acute) Depression (Acute) Hyperlipidemia (Chronic) Medical History Carpal tunnel syndrome, bilateral Chronic pain Depression, major Diabetes mellitus adult onset Diastolic dysfunction Epicondylitis H/O fall H/O gastroesophageal reflux (GERD) Heart murmur, systolic History of anemia History of CVA (cerebrovascular accident) Insomnia Lumbar radiculopathy Nonorganic sleep disorder Renal insufficiency Right shoulder pain Spinal stenosis Syncope and collapse Trochanteric bursitis, right hip Weakness of right arm Surgical History H/O: hysterectomy History of cholecystectomy Social History Smoking/Tobacco Use Status: Former Tobacco Use Smoking risk assessment performed?: Yes Alcohol Intake: never Drug use: Never Substance use type: does not use Household members: spouse Housing: house Current gender identity: female Gayatri/Mandaeism: Latter-Day Do you feel safe at home: Yes Do you feel safe in your relationship?: Yes Visit Medication and Allergies Active Medications Generic Name Dose Route Start Last Admin Trade Name Freq PRN Reason Stop Dose Admin Acetaminophen 650 mg 04/01/22 21:59 04/03/22 21:40 Acetaminophen 325 Mg Tab PO 650 mg Q4H PRN PRN Administration Al Hydrox/Mg Hydrox/Simethicone 30 ml 04/01/22 21:59 Mylanta Suspension 30 Ml Cup PO Q2H PRN PRN Amitriptyline HCl 100 mg 04/01/22 22:17 04/03/22 21:44 Amitriptyline 50 Mg Tab PO 100 mg HS MICHELLE Administration Aspirin 81 mg 04/02/22 08:30 04/04/22 08:32 Aspirin 81 Mg Chew PO 81 mg DAILY MICHELLE Administration Atorvastatin Calcium 80 mg 04/02/22 20:00 04/03/22 21:40 Atorvastatin 40 Mg Tab PO 80 mg QPM MICHELLE Administration Bupropion HCl 150 mg 04/02/22 08:30 04/04/22 08:33 Bupropion-Xl 150 Mg Tabcr PO 150 mg DAILY MICHELLE Administration Clopidogrel Bisulfate 75 mg 04/02/22 08:30 04/04/22 08:33 Clopidogrel 75 Mg Tab PO 75 mg DAILY MICHELLE Administration Dextrose 0 gm 04/01/22 22:10 Glucose 40% Oral Solution 15 Gm/37.5 Gm Tube PO DIRECTED PRN Dextrose/Water 0 gm 04/01/22 22:10 Dextrose 50%-Water 25 Gm/50 Ml Syr IVP DIRECTED PRN Dimethicone/Zinc Oxide 0 gm 04/01/22 21:59 Ariella Protect Cream 142 Gm Tube TP PRN PRN Docusate Sodium 100 mg 04/01/22 21:59 Docusate Sodium 100 Mg Cap PO TID PRN PRN Ezetimibe 10 mg 04/02/22 08:30 04/04/22 08:33 Ezetimibe 10 Mg Tab PO 10 mg DAILY MICHELLE Administration Ferrous Sulfate 325 mg 04/02/22 08:30 04/04/22 08:33 Ferrous Sulfate 325 Mg Tab PO 325 mg DAILY MICHELLE Administration Gabapentin 200 mg 04/03/22 22:00 04/03/22 21:41 Gabapentin 100 Mg Cap PO 200 mg HS MICHELLE Administration Gabapentin 100 mg 04/04/22 08:30 04/04/22 08:33 Gabapentin 100 Mg Cap PO 100 mg DAILY MICHELLE Administration Sodium Chloride 500 mls @ 0 mls/hr 04/01/22 19:33 Saline 500ml Bag IV PRN PRN As Directed IV Miscellaneous Supplies 1 each 04/01/22 19:45 Iv Access IV DIRECTED [facility] Insulin Aspart 0 units 04/02/22 08:00 04/04/22 12:59 Insulin Aspart 300 Units/3 Ml Pen SC 9 units 0800,1200,1700,2200 [facility] Administration Protocol Insulin Aspart 0 units 04/03/22 17:00 04/04/22 12:59 Insulin Aspart 300 Units/3 Ml Pen SC 4 units 0800,1200,1700 [facility] Administration Insulin Detemir 42 units 04/02/22 10:00 04/04/22 08:36 Insulin Detemir 300 Units/3 Ml Pen SC 42 units DAILY MICHELLE Administration Insulin Detemir 21 units 04/03/22 22:00 04/03/22 21:42 Insulin Detemir 300 Units/3 Ml Pen SC 21 units HS MICHELLE Administration Lisinopril 10 mg 04/02/22 08:30 04/04/22 08:33 Lisinopril 10 Mg Tab PO 10 mg DAILY MICHELLE Administration Magnesium Hydroxide 30 ml 04/01/22 21:59 Milk Of Magnesia 30 Ml Cup PO DAILY PRN PRN Pantoprazole Sodium 40 mg 04/02/22 07:30 04/04/22 08:33 Pantoprazole 40 Mg Tabcr PO 40 mg DAILY@0730 MICHELLE Administration Polyethylene Glycol 17 gm 04/01/22 21:59 Polyethylene Glycol 3350 17 Gm Packet PO DAILY PRN PRN Constipation Sodium Chloride 0 ml 04/01/22 16:18 Normal Saline Flush 10 Ml Syr IVP PRN PRN Allergies morphine Allergy (Severe, Unverified 04/01/22 17:52) Hives insulin detemir [From Levemir U-100 Insulin] Allergy (Intermediate, Unverified 04/01/22 17:52) Exam Narrative Exam Narrative: Physical Exam: Gen: Patient of apparent stated age, NAD Head and face: no facial or cranial abnormalities, adentulous, narrow airway Neck: Supple, no meningismus, no occipital tenderness CV: + S1, S2, RRR, no murmur Resp: CTA B/L Abd: soft, nontender, nondistended Ext: No edema. No clubbing or cyanosis. No bony deformity. Neuro Exam: Language: fluency, naming, repetition, and comprehension intact; Mental Status: AAOx2, current events and, fund of knowledge limited; Speech: no dysarthria Cranial nerves: Funduscopy: not performed CN II: visual orona intact CN III, IV, : extraocular movements intact, no nystagmus, pupils symmetric and reactive to light CN V: face sensation intact to LT and PP CN VII: no facial asymmetry noted CN VIII: hearing intact bilaterally CN IX, X: palate rises symmetrically CN XI: trapezius/SCM 5/5 bilaterally CN XII: protrudes tongue symmetrically Sensory: intact to LT, PP, vibration, and joint position in all extremities Motor: bulk and tone intact. Fine motor movements intact bilaterally. No pronator drift. Strength 5/5 throughout including the deltoids, biceps, triceps, wrist extensors, hip flexors, knee flexors, knee extensors, ankle flexors, and ankle extensors. Reflexes: 2+ at the biceps, triceps, brachioradialis, and patella; absent at the achilles tendons bilaterally; toes down going bilaterally; Coordination: FTN and HTS intact bilaterally Gait: not tested Results Last Vital Signs Temp 97.9 F 04/04/22 15:18 Pulse 77 04/04/22 15:29 Resp 18 04/04/22 15:18 BP 153/82 H 04/04/22 15:18 Pulse Ox 96 04/04/22 15:18 Labs Result diagrams: 04/04/22 06:00 04/04/22 06:00 Labs: Laboratory Results - last 24 hr 04/04/22 04/04/22 06:00 06:00 WBC 7.99 RBC 4.30 Hgb 12.8 Hct 37.6 MCV 87 MCH 29.8 MCHC 34.0 RDW 12.2 Plt Count 213 MPV 9.4 Immature Gran % 0.6 Neutrophils % 56.9 Lymphocytes % 31.8 Monocytes % 7.1 Eosinophils % 3.0 Basophils % 0.6 Nucleated RBC % 0.0 Absolute Neutrophils 4.54 Absolute Lymphocytes 2.54 Absolute Monocytes 0.57 Absolute Eosinophils 0.24 Absolute Basophils 0.05 Sodium 131 L Potassium 4.0 Chloride 97 L Carbon Dioxide 27.6 Anion Gap 6.4 BUN 18 Creatinine 0.9 Estimated GFR/1.73 m2 >= 60.00 Glucose 265 H Calcium 9.0
--- NOTE | 2022-04-04 16:50 | PDOC.CMDIS ---
- If Service Date Differs Date of service: 04/04/22 Time of Service: 16:50 LACE Index Scoring Tool - Questions: Length of Stay (in days): 3 Acuity (Admit via E.D.?): Yes Comorbidities: Cerebrovascular Disease, Diabetes w/o Complication E.D. Visits: 2 - Answers: Total Score: 10 Risk of Readmission: High Risk Care Management Discharge Reason for Hospitalization: TIA Discharge Plan: Karie returned home with no new services today. CM coordinated her ride home via [facility] private vehicle. She will follow up with her PCP and discharge plan of care. She is happy to be going home and does not feel that she needs additional supports at this time. Patient/Family Education Needs: Review discharge instructions and limitations, discussion of self care needs including ask me three and goals of care. Services Needed at Discharge: Transportation ([facility] private vehicle)
== END 2022-04-04 17:38 | disposition home or self-care (01) | DRG 69 ==
LOC: ER 19:48 → MS 23:02
PROVIDERS: Internal Medicine; Nurse Practitioner Acute Care; Nurse Practitioner Family; Admitting Provider Family Medicine; Emergency Provider Physician Assistant; PCP Family Medicine; Visit Provider Family Medicine
DX: G45.9 Transient cerebral ischemic attack, unspecified (principal); E87.1 Hypo-osmolality and hyponatremia; R26.2 Difficulty in walking, not elsewhere classified; E11.9 Type 2 diabetes mellitus without complications; E78.5 Hyperlipidemia, unspecified; R29.6 Repeated falls; W19.XXXA Unspecified fall, initial encounter; R53.1 Weakness; Z79.82 Long term (current) use of aspirin; Z79.01 Long term (current) use of anticoagulants; Z66 Do not resuscitate; I69.331 Monoplegia of upper limb following cerebral infarction affecting right dominant side; E03.9 Hypothyroidism, unspecified; M70.62 Trochanteric bursitis, left hip; R74.01 Elevation of levels of liver transaminase levels; D64.9 Anemia, unspecified; I10 Essential (primary) hypertension; F32.A Depression, unspecified; Z87.891 Personal history of nicotine dependence; Z79.4 Long term (current) use of insulin; Z79.84 Long term (current) use of oral hypoglycemic drugs; E11.65 Type 2 diabetes mellitus with hyperglycemia; Z91.19 Patient's noncompliance with other medical treatment and regimen
CPT/HCPCS: 36415; 71250; 80048; 80053; 82947; 87637; 93005; 97162; 97530; 99223; 70450; 70551; 74176; 81003; 81015; 83036; 83735; 84443; 84484; 85025; 93010; 93880; 99220; 99232; 99233; 99239; G0378; J0131; J3490

== ENCOUNTER 2022-04-15 12:36 | Outpatient (REF) | payer OTHER, SELFPAY | END 2022-04-15 12:37 | disposition home or self-care (01) | LOC: NCHCN 12:36 | PROVIDERS: PCP Family Medicine; Visit Provider Family Medicine | DX: R10.30 Lower abdominal pain, unspecified (principal) | CPT/HCPCS: 87086 ==

== ENCOUNTER → 2022-06-16 02:13 | Outpatient (CLI) | payer OTHER, SELFPAY ==
--- NOTE | 2022-06-16 14:00 | DI.US_ITS ---
APPROVED REPORT EXAM: Comprehensive 2D, Doppler, and color-flow Echocardiogram Patient Location: Out-Patient [facility] Vendor: Lashell Barkley RDCS (AE) Indications: h/o ischemic TIA Echo Enhancing Agent Indication: Rule out Shunt Agent(s) / Amount(s) Used: Agitated Saline 28.0 cc Comments: Contrast study was performed with 3 IV injections of 10ccs of agitated normal saline, at re st, with cough and post valsalva maneuver. Negative contrast study for shunt flow. Other Information Study Quality: Adequate Conclusion Normal left ventricular wall thickness and chamber size. Estimated ejection fraction is 55 to 60%. Wall motion is normal Normal right ventricular size and systolic function Both atria are normal in size The aortic valve is mildly sclerotic, trileaflet, with trace regurgitation Mild mitral annular calcification, trace mitral regurgitation Normal tricuspid valve with trace to mild regurgitation. Estimated right ventricular systolic pressu re is 35 mmHg There is no evidence of intracardiac shunt with administration of agitated saline Wall motion Left Ventricle The left ventricle is normal size. The left ventricular systolic function is normal. The left ventric ular ejection fraction is within the normal range. There is normal left ventricular wall thickness. T here is normal LV segmental wall motion. There is no ventricular septal defect visualized. LVEF is 56 %. Right Ventricle The right ventricle is normal size. The right ventricular systolic function is normal. The RVSP is 34 .9 mmHg. Atria The left atrium size is normal. The right atrium size is normal. The interatrial septum is intact wit h no evidence for an atrial septal defect. Saline bubble contrast intravenous injection does not demo nstrate PFO. Aortic Valve The Aortic valve is mildly sclerotic. Aortic valve is trileaflet. There is no aortic valvular stenosi s. Trace aortic regurgitation. Mitral Valve Mild mitral annular calcification. No evidence of mitral valve stenosis. Trace mitral regurgitation. Tricuspid Valve The tricuspid valve is normal in structure. There is no tricuspid valve stenosis. Trace to mild tricu spid regurgitation. Pulmonic Valve The pulmonary valve is normal in structure. There is no pulmonic valvular stenosis. There is no pulmo josé valvular regurgitation. Great Vessels The aortic root is normal in size. The ascending aorta is normal in size. Aortic arch is normal in ca liber. IVC is normal in size and collapses >50% with inspiration. Pericardium There is no pericardial effusion. 2D Dimensions IVSD d PLAX 0.96 cm F: 0.6-1.0 LV Vol A2C d MOD 78.1 mL LVPW d PLAX 0.95 cm F: 0.6 - 1.0 LV Vol A4C d MOD 99.4 mL LVID d PLAX 4.53 cm F: 3.8 - 5.2 LA vol/ BSA A2C s A-L 26.2 mL/m2 LVDs 3.10 cm F: 2.2 - 3.5 LA vol/ BSA A4C s A-L 23.1 mL/m2 Ao Root d 3.00 cm F: 2.7 - 3.3 LA Vol/ BSA Biplane s A-L 25.5 mL/m2 RA Area A4C 10.65 cm2 LA Area A4C s MOD 16.05 cm2 RA Vol/ BSA A4C s A-L 12.5 mL/m2 LA Area A2C s MOD 17.68 cm2 Ao Asc Diam d 3.23 cm F: 2.3 - 3.1 LV EF A4C MOD 55.9 % LV EF Teichholz 58.0 % LV EF A2C MOD 57.7 % LVEF (Jacques's) 56.24 % F: 54 - 74 LV EF Biplane MOD 56.2 % LV Volume 69.35 mL F: 46 - 106 SV 50.21 mL LV Volume Index 38.52 mL/m2 F: 29 - 61 SV Index 27.80 mL/m2 LV Vol Biplane MOD 89.3 mL FS 30.45 % M-Mode TAPSE 2.23 cm (M/F) >1.7 LV Diastology MV E' medial 0.080 (>0.07 m/s) E/A Ratio 0.9 LV E/e MED 10.95 (<14) MV E Vmax 0.88 (0.4-1.3 m/s) MV E' lateral 0.088 (>0.1 m/s) MV A Vmax 1.00 (0.4-1.3 m/s) LV E/e LAT 9.95 (<14) MV E/A Ratio 0.87 MV E/E' medial 10.99 MV E/E' lateral 9.98 Aortic Valve LVOT Area 3.06 cm2 AoV Area Vmax 1.98 cm2 LVOT Vmax 0.99 m/s AoV Area/ BSA (Vmax) 1.10 cm2/m2 LVOT Mean Salazar. 0.66 m/s ROBERTO Mean Salazar. 1.90 cm2 LVOT Peak Grad 4.0 mmHg ROBERTO Mean Salazar. Index 1.05 cm2/m2 LVOT Mean Grad 2.0 mmHg LVOT VTI 0.209 m LVOT Diam s 1.95 cm AoV Vmax 1.53 m/s Velocity Ratio 0.64 AoV Mean Salazar. 1.06 m/s AoV Peak Grad 9.4 mmHg LVOT SV 63.93 mL AoV Mean Grad 5.1 mmHg AoV VTI 0.313 m AoV Area VTI 2.04 cm2 AoV Area/ BSA (VTI) 1.13 cm/m2 Mitral Valve MV DT 240 (160-240 msec) MV PHT 70 msec MV Area PHT 3.16 cm2 MV VTI 0.315 m MV Area VTI 2.03 (4.0-6.0 cm2) Pulmonary Valve PV Vmax 1.17 (0.5-1.5 m/s) RVOT Peak Gr. 3.25 mmHg PV Peak Grad 5.5 mmHg RVOT Mean Gr. 1.65 mmHg PV Mean Grad 2.8 mmHg RVOT VTI 0.187 m PV VTI 0.226 m RVOT Vmax 0.90 m/s Tricuspid Valve TR Peak Grad 31.8 mmHg TR Vmax 2.82 m/s RA Pressure 3.00 mmHg RVSP (TR) 34.9 mmHg
== END ==
PROVIDERS: PCP Family Medicine; Visit Provider Family Medicine
DX: Z86.73 Personal history of transient ischemic attack (TIA), and cerebral infarction without residual deficits (principal); I35.1 Nonrheumatic aortic (valve) insufficiency; I34.0 Nonrheumatic mitral (valve) insufficiency
CPT/HCPCS: 93306

== ENCOUNTER 2022-06-21 04:05 | Outpatient (CLI) | payer OTHER, SELFPAY ==
--- NOTE | 2022-06-21 11:00 | NS.NUTBLAN_ITS ---
Karie and health worker attended diabetes self management education today. 59 inches 161 lbs BMI: 32.5 DM meds: 1000 mg metformin BID, 7 mg Rybelsus qd, 40 u levemir a HS, 50 u novolog at B, 20u at Lunch and Dinner Exercise: none- pain in hips and knees- very sedentary Diet Recall: B: packet of flavored oatmeal, L: ham sandwich with 1 slice ham. D: hamburger. Snacks: 9 pm PB and J on white, diet jello Most recent A1C: 04/02/22: 13.2% Karie reports that her medication adherence is much improved in last 8 weeks due to a device she received from [employer] that sets reminders. She does not use the Vladimir 2 Continuous Glucose Monitor and prefers checking her blood sugar QID. Blood sugar record indicates AM fasting levels ranging fgrom 145- 345 mg/dl. Post prandial levels ranging from 150-250 mg/dl. Karie has insulin resistance and therefore takes upto 130 units insulin daily (total daily dose). Despite addition of Rybellus, metformin- continues to not meet her target A1C of 8.5%. Unclear if she is giving a clear picture about her eating habits. She reports not eating high sugar or high carb foods and that she has small meals. In reviewing her meals, food preferences, medication and blood sugar log recommend the followin. Switch 40 u levemir to AM 2. Consider adding 10 mg Jardiance daily 2. Discontinue PB and J sandwich before bed 3. Add higher protein options at all meals: add eggs or cottage cheese to oatmeal at B, increase protein content of lunch by having 3 oz tuna/eggs salad or low salt deli meat at Lunch. Add cottage cheese as side dish at dinner. Increase fiber by adding in beans and vegetables during day. 4. Increase activity as able If A1C continues to be > 10% at next blood draw (due in Jun), recommend follow up with [facility].
== END 2022-06-21 04:06 | disposition home or self-care (01) ==
LOC: DS 04:05
PROVIDERS: PCP Family Medicine; Visit Provider Dietitian, Registered
DX: E11.9 Type 2 diabetes mellitus without complications (principal); Z79.4 Long term (current) use of insulin; Z79.84 Long term (current) use of oral hypoglycemic drugs; Z71.3 Dietary counseling and surveillance
CPT/HCPCS: 97802

== ENCOUNTER 2023-03-18 09:02 | Inpatient (IN) | payer OTHER, SELFPAY ==
[2023-03-18] VITALS (47 sets, daily range): BP systolic 123–191; BP diastolic 51–146; PULSE 79–96; RESP 18; TEMP 37.5–37.6; O2SAT 80–98
--- NOTE | 2023-03-18 09:00 | RT.EKG_ITS ---
APPROVED REPORT Exam: Resting ECG Reason for Exam: weakness Patient Location: E HR:95 bpm ECG Measurements Heart Rate 95 AXIS ME 205 P 52 QRSd 106 QRS 13 QT 383 T [id number] QTc 482 Conclusion Sinus rhythm...normal P axis, V-rate 60- 99 Probable left atrial enlargement...P >50mS, <-0.10mV V1 Left ventricular hypertrophy...multiple LVH criteria. Sinus. No STEMI. I have reviewed and interpreted ECG and agree with software generated interpretation.
--- NOTE | 2023-03-18 09:10 | ED.GENADUL_ITS ---
Discharge Plan Discharge Details Chief Complaint: [facility]Medical Primary Care Provider: Melodie Lay V ED Provider: Aura Godfrey Home Meds and New Rx's Prescriptions: No Action metformin [Glucophage] 1,000 mg Tablet 1,000 mg PO BID clopidogrel [Plavix] 75 mg Tablet 75 mg PO DAILY aspirin 81 mg Tablet,Chewable 81 mg PO DAILY Hold Instructions: discuss with pcp if to resume if indication, no recommended per neurology for stroke prevention/treatment at this time. ezetimibe [Zetia] 10 mg Tablet 10 mg PO DAILY cholecalciferol (vitamin D3) [Vitamin D3] 1,000 unit (25 mcg) Tablet 1,000 unit PO BID lisinopril 5 MG tablet 10 mg PO DAILY calcium carbonate [Oyster Shell Calcium 500] 500 MG tablet 500 mg PO BID ferrous sulfate 325 MG tablet,delayed release (DR/EC) 325 mg PO DAILY bupropion HCl [Wellbutrin XL] 150 MG tablet extended release 24 hr 150 mg PO DAILY amitriptyline 100 mg tablet 100 mg PO QHS atorvastatin [Lipitor] 40 MG tablet 40 mg PO QPM Qty: 60 0RF diclofenac sodium 1 % gel 4 gm TP BID PRN insulin aspart U-100 [Novolog U-100 Insulin aspart] 100 unit/mL solution See Rx Instructions .ROUTE .COMPLEX Patient Comments: INJECT 50 UNITS UNDER THE SKIN BEFORE BREAKFAST, 20 UNITS BEOFRE LUNCH, AND 20 UNITS BEFORE DINNER Rx Instructions: Inject 20-50 units subcutaneously three times a day. Inject 50 units before breakfast, 20 units before lunch and 20 units before dinner Levemir U-100 Insulin 100 unit/mL solution 42 unit SUBCUT DAILY AM Patient Comments: INJECT 40 UNITS UNDER THE SKIN IN THE MORNING gabapentin 100 mg capsule See Rx Instructions .ROUTE .COMPLEX Patient Comments: START WITH 1 CAP AT BEDTIME AND IN 3 TO 4 DAYS INCREASE TO 2 AT BEDTIME, THEN IN ANOTHER 3 TO 4 DAYS TRY 1 IN THE MORNING AND 2 AT BEDTIME. Rx Instructions: Take 1 capin the AM and 2 caps at HS Rybelsus 7 mg tablet 1 tab PO DAILY Patient Comments: TAKE ONE TABLET BY MOUTH EVERY DAY pantoprazole [Protonix] 20 mg tablet,delayed release (DR/EC) 20 mg PO DAILY Qty: 30 0RF HPI General Mode of arrival: EMS . Date/Time Provider Initiated Documentation: 03/18/23 09:03 . Limitations to Documentation: no limitations . Information obtained by: patient . HPI Narrative: Patient is a 72-year-old female with a history of hypertension, hyperlipidemia, type 2 diabetes, hypothyroidism, CVA, depression who presents for weakness over the past few days with a report of a broken glucometer at home and EMS reporting the glucometer read as high. Related Data Home Medications Medication Instructions Recorded Confirmed bupropion HCl 150 mg 24 hr tablet, 150 mg PO DAILY 07/12/17 04/01/22 extended release (Wellbutrin XL) calcium carbonate 500 mg calcium 500 mg PO BID 07/12/17 04/01/22 (1,250 mg) tablet (Oyster Shell Calcium 500) ferrous sulfate 325 mg (65 mg 325 mg PO DAILY 07/12/17 04/01/22 iron) tablet,delayed release atorvastatin 40 mg tablet (Lipitor) 40 mg PO QPM #60 tabs 07/27/17 04/01/22 aspirin 81 mg chewable tablet 81 mg PO DAILY 09/04/19 04/01/22 cholecalciferol (vitamin D3) 25 1,000 unit PO BID 09/04/19 04/01/22 mcg (1,000 unit) tablet (Vitamin D3) clopidogrel 75 mg tablet (Plavix) 75 mg PO DAILY 09/04/19 04/01/22 ezetimibe 10 mg tablet (Zetia) 10 mg PO DAILY 09/04/19 04/01/22 lisinopril 5 mg tablet 10 mg PO DAILY 09/04/19 04/01/22 amitriptyline 100 mg tablet 100 mg PO QHS 07/13/20 04/01/22 metformin 1,000 mg tablet 1,000 mg PO BID 10/06/20 04/01/22 (Glucophage) diclofenac sodium 1 % topical gel 4 gm topical BID PRN 04/01/22 04/01/22 gabapentin 100 mg capsule See Rx Instructions .Route .COMPLEX 04/01/22 04/01/22 insulin aspart U-100 100 unit/mL See Rx Instructions .Route .COMPLEX 04/01/22 04/01/22 subcutaneous solution (Novolog U-100 Insulin aspart) insulin detemir U-100 100 unit/mL 42 unit subcut DAILY AM 04/01/22 04/01/22 subcutaneous solution (Levemir U-100 Insulin) semaglutide 7 mg tablet (Rybelsus) 1 tab PO DAILY 04/01/22 04/01/22 pantoprazole 20 mg tablet,delayed 20 mg PO DAILY #30 tabs 04/04/22 release (Protonix) Previous Rx's Medication Instructions Recorded atorvastatin 40 mg tablet (Lipitor) 40 mg PO QPM #60 tabs 07/27/17 pantoprazole 20 mg tablet,delayed 20 mg PO DAILY #30 tabs 04/04/22 release (Protonix) Allergies Allergy/AdvReac Type Severity Reaction Status Date / Time morphine Allergy Severe Hives Unverified 03/18/23 09:06 insulin detemir Allergy Intermediate Unverified 03/18/23 09:06 [From Levemir U-100 Insulin] General Stated Complaint: GenMedical MENDOZA: 3 Review of Systems All systems reviewed & are unremarkable except as noted in HPI and below Constitutional Constitutional: Reports as per HPI, Denies chills and Denies fever(s) Eyes Eyes: Denies blurry vision ENT Ears, Nose, Mouth, and Throat: Denies dizziness, Denies sore throat and Denies throat swelling Cardiovascular Cardiovascular: Denies chest pain and Denies dyspnea Respiratory Respiratory: Denies cough and Denies dyspnea Gastrointestinal Gastrointestinal: Denies abdominal pain, Denies diarrhea and Denies vomiting Genitourinary Genitourinary: Denies hematuria and Denies dysuria Musculoskeletal Musculoskeletal: Denies back pain and Denies numbness Integumentary/Breasts Skin/Breast: Denies lesions and Denies rash Neurologic Neurologic: Denies dizziness, Denies localized weakness and Denies numbness Allergic/Immunologic Allergic/Immunologic: Denies throat swelling PFSH All Active Problems (Updated 04/19/22 @ 10:14 by JESS Stringer) TIA (transient ischemic attack) (Acute) Discharge planning issues (Acute) Ambulatory dysfunction (Acute) Hypothyroid (Chronic) Falling (Acute) Trochanteric bursitis, left hip (Acute) Transaminitis (Acute) Anemia (Acute) Hypertension (Acute) Diabetes (Chronic) 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 (Acute) Depression (Acute) Hyperlipidemia (Chronic) Medical History Carpal tunnel syndrome, bilateral Chronic pain Depression, major Diabetes mellitus adult onset Diastolic dysfunction Epicondylitis H/O fall H/O gastroesophageal reflux (GERD) Heart murmur, systolic History of anemia History of CVA (cerebrovascular accident) Insomnia Lumbar radiculopathy Nonorganic sleep disorder Renal insufficiency Right shoulder pain Spinal stenosis Syncope and collapse Trochanteric bursitis, right hip Weakness of right arm Surgical History H/O: hysterectomy History of cholecystectomy Social History Smoking/Tobacco Use Status: Former Tobacco Use Smoking risk assessment performed?: Yes Alcohol Intake: never Drug use: Never Substance use type: does not use Household members: spouse Housing: house Current gender identity: female Gayatri/Latter Day: Gnosticist Do you feel safe at home: Yes Do you feel safe in your relationship?: Yes Exam Const General: cooperative, healthy appearing and no acute distress HENMT Head: normal to inspection Face and sinus: normal facial exam Eyes General: appearance normal, both eyes and all related structures Pupils: PERRL EOM: EOM intact bilaterally Neck Neck: normal visual inspection and No submandibular swelling Lymphatic: no lymphadenopathy noted Chest Chest: normal inspection of the chest and no tenderness Resp Effort & Inspection: normal respiratory effort and able to speak in complete sentences Auscultation: clear to auscultation bilaterally Cardio Rate: regular rate Rhythm: regular rhythm GI Inspection: normal to inspection Palpation: soft, not firm, not rigid and nontender Auscultation: normal bowel sounds Back/Spine/Pelvis Thoracic/Lumbar Spine: thoracic and lumbar spine normal to inspection Pelvis: no pain with anterior-posterior compression Skin General skin exam: no rashes or lesions noted Neuro General: patient alert, patient awake and patient oriented x3 Cognition: normal cognition Speech: speech normal Motor: muscle tone normal throughout Sensory Exam: no sensory deficits noted Extrem General: normal to inspection, full ROM, capillary refill normal, no calf tenderness bilaterally and no edema Psych Appearance: grossly normal Mental Status: mental status grossly normal Speech and Movement: speech and movement normal Affect: normal affect Course Vital Signs Vital signs: Vital Signs Temperature 99.6 F 03/18/23 09:02 Pulse 86 03/18/23 09:02 Respiratory Rate 18 03/18/23 09:02 Blood Pressure 149/121 H 03/18/23 09:02 Pulse Oximetry 96 03/18/23 09:02 Temperature 99.6 F 03/18/23 09:02 Temperature Source Oral 03/18/23 09:02 Pulse 86 03/18/23 09:02 Respiratory Rate 18 03/18/23 09:02 Respiratory Effort Normal, Non-Labored 03/18/23 09:06 Blood Pressure 148/81 H 03/18/23 09:08 Pulse Oximetry 96 03/18/23 09:02 Oxygen Delivery Method Room Air 03/18/23 09:02 Oxygen Flow Rate 0 03/18/23 09:02
[2023-03-18 09:18] LABS: Bilirubin Negative (Negative); Blood Small (Negative); Clarity Sl Cloudy (Clear); Glucose >=1000 mg/dL (Negative); Ketones 80 mg/dL (Negative); Leukocyte Esterase Trace (Negative); Nitrite Negative (Negative); Urobilinogen 0.2 mg/dL (Up to 0.2); pH 5.5 (5-8)
--- NOTE | 2023-03-18 09:18 | NUR.NOTE ---
bgm reading HI. MD Godfrey aware
[2023-03-18 09:21] LABS: BE (Venous) -4 mmol/L (-2-3); HCO3 (Venous) 22 mmol/L (23-28); O2 Sat (Venous) 78 %; TCO2 (Venous) 20 mmol/L (24-29); pCO2 (Venous) 42 mmHg (41-51); pH (Venous) 7.33 (7.31-7.41); pO2 (Venous) 44 mmHg
[2023-03-18 09:24] LABS: Abs Immature Grans 0.05 10^3/uL (0.0-0.06); Absolute Basophil Count 0.03 10^3/uL (0.0-0.2); Absolute Lymphocyte Count 1.02 10^3/uL (1.2-3.4); Absolute Monocyte Count 0.33 10^3/uL (0.1-0.8); Basophils % 0.4; HCT 40.5 % (36.0-46.0); HGB 13.2 g/dL (11.2-15.7); Immature Grans % 0.6; Lymphocytes % 12.1; MCH 28.5 pg (27.0-33.0); MCHC 32.6 % (32.0-36.0); MCV 88 fL (80-95); MPV 9.3 fL (8.0-11.0); Monocytes % 3.9; Platelet Count 314 10^3/uL (130-400); RBC 4.63 10^6/uL (3.93-5.22); RDW 13.1 % (11.7-14.6); RDW-SD 41.6 fL; WBC 8.43 10^3/uL (4.4-10.8)
[2023-03-18 09:31] LABS: Bacteria Moderate HPF (Negative); Casts Negative LPF (Negative); Crystals Negative HPF (Negative); Epithelial Cells Many HPF (Negative); Mucus Trace (Negative)
[2023-03-18 09:32] LABS: C & S Indicated? No/Sq. Contamination
[2023-03-18 09:40] LABS: ALT 25 U/L (14-59); AST 17 U/L (15-37); Albumin 3.4 g/dL (3.4-5.0); Alkaline Phosphatase 208 U/L (46-116); Anion Gap 18.7 mmol/L (3-11); BUN 36 mg/dL (7-18); Bilirubin, Total 0.5 mg/dL (0.2-1.0); CO2 23.3 mmol/L (21.0-32.0); CREATININE 1.5 mg/dL (0.55-1.02); Calcium 9.8 mg/dL (8.5-10.1); Chloride 90 mmol/L (98-107); Estimated GFR 37.26 (mL/min/1.73m2); Magnesium 2.2 mg/dL (1.8-2.4); Potassium 4.4 mmol/L (3.5-5.1); Sodium 132 mmol/L (136-145); Total Protein 8.5 g/dL (6.4-8.2); Troponin I < 50 ng/L (<or=60)
[2023-03-18 09:44] LABS: Glucose 711 mg/dL (74-106)
--- NOTE | 2023-03-18 09:45 | DI.CT_ITS ---
Exam(s) CT ABDOMEN PELVIS WO EXAM: CT ABDOMEN PELVIS WO CLINICAL HISTORY: abdominal, elevated creatinine. TECHNIQUE: Imaging Protocol: Axial computed tomography images with coronal and sagittal reformatted images were created and reviewed. COMPARISON: CT CT CHEST/ABD/PEL WO from 04/01/2022 FINDINGS: The examination is limited due to patient motion artifact. ABDOMEN: Lung Bases: Coronary artery calcification is present. There is an infiltrate seen in the right lower lobe. This may represent scarring, atelectasis or pneumonia. Liver: Normal density. No measurable mass. Gallbladder and biliary tract: Status post cholecystectomy. No significant biliary ductal dilatation . Pancreas: Normal density, no abnormal calcifications or inflammatory process. Spleen: Normal. Kidneys: Normal size, contour and axis.No radiodense stones or obstructive uropathy. No masses seen. Adrenal glands: No mass is seen. Lymph nodes: Within normal limits. Abdominal Aorta: Abdominal portion non-dilated. Atherosclerosis. PELVIS: Bladder:Symmetric distention, no gross wall thickening. Bowel: No obstruction or bowel wall thickening. Appendix is unremarkable. There is a moderate amount of stool throughout the colon which may represent constipation. Peritoneal cavity: No ascites, collection or mesenteric inflammatory response. No free air. Reproductive organs: Status post hysterectomy. Bones: Within normal limits. Soft Tissues: Within normal limits. IMPRESSION: 1. Small right basilar linear infiltrate. This may represent scarring, atelectasis or pneumonia. 2. Constipation. RADIATION DOSE DELIVERED: 1,196.12mGy.cm Total DLP DATA REPOSITORY: All CT scans at this facility are submitted to the National Radiology Data Registry (NRDR) Dose Index Registry (DIR) with the [employer] [place] [employer] ([employer]). RADIATION OPTIMIZATION: All CT scans at this facility use at least one of these dose optimization te chniques: automated exposure control; mA and/or kV adjustment per patient size (includes targeted exa ms where dose is matched to clinical indication); or iterative reconstruction.
--- NOTE | 2023-03-18 09:50 | DI.RAD_ITS ---
Exam(s) XR CHEST 2V PA LATERAL EXAM: XR CHEST 2V PA LATERAL CLINICAL HISTORY: fever TECHNIQUE: 2D digital imaging was performed of the chest. Two images were obtained. PA and lateral views were obtained. COMPARISON: CR,XR XR CHEST 2V PA LATERAL from 04/05/2021 FINDINGS: MEDIASTINUM: Normal. HEART: Normal. PULMONARY VASCULATURE: Normal. LUNGS: There are stable linear opacities on the lateral view. These likely reflect scarring. No foc al infiltrates are seen. PLEURAL SPACE: No pleural effusion or pneumothorax. BONE:Within normal limits for the patient's age. OTHER FINDINGS:Surgical clips are seen in the right upper quadrant of the abdomen. IMPRESSION: 1. Stable linear scarring in the lung on the lateral view. This is unchanged dating back to 04/05/2021 . 2. No acute pulmonary process. DATA REPOSITORY: RADIATION DOSE DELIVERED:
[2023-03-18] MEDS: Normal Saline 1,000 ML 1000 ML IV (10:00)
[2023-03-18 10:45] LABS: Lactate 1.6 mmol/L (0.6-1.4)
--- NOTE | 2023-03-18 11:27 | ED.GENADUL_ITS ---
Discharge Plan Disposition Patient Disposition: Admit to [facility] Condition: Serious Discharge Details Clinical Impression: Hyperosmolar hyperglycemic state (HHS), Pneumonia, Acute metabolic encephalopathy Admit Date/Time: 03/18/23 12:45 Admit Provider: Herb Duque Attending Provider: Herb Duque Primary Care Provider: Melodie Lay V ED Provider: Glory Chun Discharge Data Discharge Date/Time-TO BE ENTERED AT DEPARTURE: 03/18/23 14:54 Medical Decision Making 72-year-old female presents with fatigue, weakness Glucose of 711 Concern for urinary tract infection initially, given ceftriaxone, also chest x- ray with evidence of possible infiltrate, will treat with ceftriaxone and doxycycline Will give 2 L of NS for likely dehydration, despite gap, suspect this is related to dehydration with BUN of 38 and less likely to be DKA in this type II diabetic, suspect patient is HHS Repeat blood glucose 542, will initiate 15 units of insulin subcutaneously Could consider drip, however patient is fluid responsive Patient appears tired and ill but she is alert but likely encephalopathic secondary to pneumonia, HHS, UTI She will need admission to the hospital She is maintained on telemetry monitoring Consultation with the hospitalist was performed she has been accepted to their care HPI General Date/Time Provider Initiated Documentation: 03/18/23 09:03 . HPI Narrative: This 72-year-old female presents with weakness for the past few days and hyperglycemia. States unable to ambulate secondary to weakness. Has been nauseous last episode of vomiting yesterday. Denies any diarrhea. Denies any chest pain or shortness of breath. States she feels confused. Has had falls denies head injury. Related Data Home Medications Medication Instructions Recorded Confirmed bupropion HCl 150 mg 24 hr tablet, 150 mg PO DAILY 07/12/17 03/18/23 extended release (Wellbutrin XL) calcium carbonate 500 mg calcium 500 mg PO BID 07/12/17 03/18/23 (1,250 mg) tablet (Oyster Shell Calcium 500) ferrous sulfate 325 mg (65 mg 325 mg PO DAILY 07/12/17 04/01/22 iron) tablet,delayed release atorvastatin 40 mg tablet (Lipitor) 40 mg PO QPM #60 tabs 07/27/17 03/18/23 aspirin 81 mg chewable tablet 81 mg PO DAILY 09/04/19 03/18/23 cholecalciferol (vitamin D3) 25 1,000 unit PO BID 09/04/19 04/01/22 mcg (1,000 unit) tablet (Vitamin D3) clopidogrel 75 mg tablet (Plavix) 75 mg PO DAILY 09/04/19 03/18/23 ezetimibe 10 mg tablet (Zetia) 10 mg PO DAILY 09/04/19 03/18/23 lisinopril 5 mg tablet 30 mg PO DAILY 09/04/19 03/18/23 amitriptyline 100 mg tablet 50 mg PO QHS 07/13/20 03/18/23 metformin 1,000 mg tablet 1,000 mg PO BID 10/06/20 03/18/23 (Glucophage) diclofenac sodium 1 % topical gel 4 gm topical BID PRN 04/01/22 04/01/22 gabapentin 100 mg capsule See Rx Instructions .Route .COMPLEX 04/01/22 03/18/23 insulin aspart U-100 100 unit/mL See Rx Instructions .Route .COMPLEX 04/01/22 03/18/23 subcutaneous solution (Novolog U-100 Insulin aspart) insulin detemir U-100 100 unit/mL 50 unit subcut QPM 04/01/22 03/18/23 subcutaneous solution (Levemir U-100 Insulin) semaglutide 7 mg tablet (Rybelsus) 2 tab PO DAILY 04/01/22 03/18/23 pantoprazole 20 mg tablet,delayed 20 mg PO DAILY #30 tabs 04/04/22 03/18/23 release (Protonix) Previous Rx's Medication Instructions Recorded atorvastatin 40 mg tablet (Lipitor) 40 mg PO QPM #60 tabs 07/27/17 pantoprazole 20 mg tablet,delayed 20 mg PO DAILY #30 tabs 04/04/22 release (Protonix) Allergies Allergy/AdvReac Type Severity Reaction Status Date / Time morphine Allergy Severe Hives Unverified 03/18/23 09:06 insulin detemir Allergy Intermediate Unverified 03/18/23 09:06 [From Levemir U-100 Insulin] General Stated Complaint: [facility] MENDOZA: 2 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 (Acute) Depression (Acute) Hyperlipidemia (Chronic) Medical History Carpal tunnel syndrome, bilateral Chronic pain Depression, major Diabetes mellitus adult onset Diastolic dysfunction Epicondylitis H/O fall H/O gastroesophageal reflux (GERD) Heart murmur, systolic History of anemia History of CVA (cerebrovascular accident) Insomnia Lumbar radiculopathy Nonorganic sleep disorder Renal insufficiency Right shoulder pain Spinal stenosis Syncope and collapse Trochanteric bursitis, right hip Weakness of right arm Surgical History H/O: hysterectomy History of cholecystectomy Social History Smoking/Tobacco Use Status: Former Tobacco Use Smoking risk assessment performed?: Yes Alcohol Intake: never Drug use: Never Substance use type: does not use Household members: spouse Housing: house Current gender identity: female Gayatri/Moravian: Yarsanism Do you feel safe at home: Yes Do you feel safe in your relationship?: Yes Exam Const Orientation: alert and oriented x3 HENMT Head: normal to inspection Mouth: oral mucosae normal Eyes Pupils: PERRL Resp Effort & Inspection: normal respiratory effort Auscultation: clear to auscultation bilaterally Cardio Rate: regular rate Rhythm: regular rhythm Heart Sounds: no murmurs GI Inspection: normal to inspection Skin General skin exam: no rashes or lesions noted Neuro General: patient alert Cognition: normal cognition Other: tired in appearance Course Vital Signs Vital signs: Vital Signs Temperature 37.6 C 03/18/23 09:02 Pulse 86 03/18/23 09:02 Respiratory Rate 18 03/18/23 09:02 Blood Pressure 149/121 H 03/18/23 09:02 Pulse Oximetry 96 03/18/23 09:02 Temperature 37.6 C 03/18/23 09:02 Temperature Source Oral 03/18/23 09:02 Pulse 86 03/18/23 09:02 Respiratory Rate 18 03/18/23 09:18 Respiratory Effort Normal, Non-Labored 03/18/23 09:18 Respiratory Depth Normal 03/18/23 09:18 Respiratory Pattern Normal 03/18/23 09:18 Blood Pressure 148/81 H 03/18/23 09:08 Pulse Oximetry 96 03/18/23 09:02 Oxygen Delivery Method Room Air 03/18/23 09:02 Oxygen Flow Rate 0 03/18/23 09:02 Lab/Test Results Lab/Test Results: 03/18/23 10:35 Blood Blood Culture - Pending 03/18/23 10:20 Blood Blood Culture - Pending Laboratory Tests Range/Units 03/18/23 03/18/23 03/18/23 09:11 09:14 09:14 WBC (4.4-10.8) 10^3/uL 8.43 RBC (3.93-5.22) 10^6/uL 4.63 Hgb (11.2-15.7) g/dL 13.2 Hct (36.0-46.0) % 40.5 MCV (80-95) fL 88 MCH (27.0-33.0) pg 28.5 MCHC (32.0-36.0) % 32.6 RDW (11.7-14.6) % 13.1 Plt Count (130-400) 10^3/uL 314 MPV (8.0-11.0) fL 9.3 Immature Gran % 0.6 Neutrophils % 83.0 Lymphocytes % 12.1 Monocytes % 3.9 Eosinophils % 0.0 Basophils % 0.4 Nucleated RBC % (0.0-0.3) % 0.0 Absolute Neutrophils (1.2-6.7) 10^3/uL 7.00 H Absolute Lymphocytes (1.2-3.4) 10^3/uL 1.02 L Absolute Monocytes (0.1-0.8) 10^3/uL 0.33 Absolute Eosinophils (0.0-0.7) 10^3/uL 0.00 Absolute Basophils (0.0-0.2) 10^3/uL 0.03 VBG pH (7.31-7.41) VBG pCO2 (41-51) mmHg VBG pO2 mmHg VBG HCO3 (23-28) mmol/L VBG Total CO2 (24-29) mmol/L VBG O2 Saturation % VBG Base Excess (-2-3) mmol/L VBG Lactate (0.6-1.4) mmol/L Sodium (136-145) mmol/L 132 L Potassium (3.5-5.1) mmol/L 4.4 Chloride (98-107) mmol/L 90 L Carbon Dioxide (21.0-32.0) mmol/L 23.3 Anion Gap (3-11) mmol/L 18.7 H BUN (7-18) mg/dL 36 H Creatinine (0.55-1.02) mg/dL 1.5 H Est GFR (CKD-EPI 2020) (mL/min/1.73m2) 37.26 Glucose (74-106) mg/dL 711 H* Calcium (8.5-10.1) mg/dL 9.8 Magnesium (1.8-2.4) mg/dL 2.2 Total Bilirubin (0.2-1.0) mg/dL 0.5 AST (15-37) U/L 17 ALT (14-59) U/L 25 Alkaline Phosphatase (46-116) U/L 208 H Troponin I (<or=60) ng/L < 50 Total Protein (6.4-8.2) g/dL 8.5 H Albumin (3.4-5.0) g/dL 3.4 Urine Color (Yellow) Yellow Urine Clarity (Clear) Sl Cloudy Urine pH (5-8) 5.5 Ur Specific [place] (1.005-1.025) 1.020 Urine Protein (Negative) mg/dL >=300 H Urine Ketones (Negative) mg/dL 80 H Urine Blood (Negative) Small H Urine Nitrite (Negative) Negative Urine Bilirubin (Negative) Negative Urine Urobilinogen (Up to 0.2) mg/dL 0.2 Ur Leukocyte Esterase (Negative) Trace H Urine RBC (0-2) HPF 10-20 H Urine WBC (0-5) HPF 5-10 Ur Epithelial Cells (Negative) HPF Many Urine Crystals (Negative) HPF Negative Urine Bacteria (Negative) HPF Moderate Urine Casts (Negative) LPF Negative Urine Mucus (Negative) Trace Ur Culture Indicated? No/Sq. Contamination Urine Glucose (Negative) mg/dL >=1000 H Range/Units 03/18/23 03/18/23 09:14 10:35 WBC (4.4-10.8) 10^3/uL RBC (3.93-5.22) 10^6/uL Hgb (11.2-15.7) g/dL Hct (36.0-46.0) % MCV (80-95) fL MCH (27.0-33.0) pg MCHC (32.0-36.0) % RDW (11.7-14.6) % Plt Count (130-400) 10^3/uL MPV (8.0-11.0) fL Immature Gran % Neutrophils % Lymphocytes % Monocytes % Eosinophils % Basophils % Nucleated RBC % (0.0-0.3) % Absolute Neutrophils (1.2-6.7) 10^3/uL Absolute Lymphocytes (1.2-3.4) 10^3/uL Absolute Monocytes (0.1-0.8) 10^3/uL Absolute Eosinophils (0.0-0.7) 10^3/uL Absolute Basophils (0.0-0.2) 10^3/uL VBG pH (7.31-7.41) 7.33 VBG pCO2 (41-51) mmHg 42 VBG pO2 mmHg 44 VBG HCO3 (23-28) mmol/L 22 L VBG Total CO2 (24-29) mmol/L 20 L VBG O2 Saturation % 78 VBG Base Excess (-2-3) mmol/L -4 L VBG Lactate (0.6-1.4) mmol/L 1.6 H Sodium (136-145) mmol/L Potassium (3.5-5.1) mmol/L Chloride (98-107) mmol/L Carbon Dioxide (21.0-32.0) mmol/L Anion Gap (3-11) mmol/L BUN (7-18) mg/dL Creatinine (0.55-1.02) mg/dL Est GFR (CKD-EPI 2020) (mL/min/1.73m2) Glucose (74-106) mg/dL Calcium (8.5-10.1) mg/dL Magnesium (1.8-2.4) mg/dL Total Bilirubin (0.2-1.0) mg/dL AST (15-37) U/L ALT (14-59) U/L Alkaline Phosphatase (46-116) U/L Troponin I (<or=60) ng/L Total Protein (6.4-8.2) g/dL Albumin (3.4-5.0) g/dL Urine Color (Yellow) Urine Clarity (Clear) Urine pH (5-8) Ur Specific [place] (1.005-1.025) Urine Protein (Negative) mg/dL Urine Ketones (Negative) mg/dL Urine Blood (Negative) Urine Nitrite (Negative) Urine Bilirubin (Negative) Urine Urobilinogen (Up to 0.2) mg/dL Ur Leukocyte Esterase (Negative) Urine RBC (0-2) HPF Urine WBC (0-5) HPF Ur Epithelial Cells (Negative) HPF Urine Crystals (Negative) HPF Urine Bacteria (Negative) HPF Urine Casts (Negative) LPF Urine Mucus (Negative) Ur Culture Indicated? Urine Glucose (Negative) mg/dL Critical Care Time Critical Care Time Attestation: 45 minutes of critical care time secondary to acute HHS, pneumonia, urinary tract infection secondary to telemetry monitoring, insulin administration secondary to acute HHS with encephalopathy, IV fluid hydration, IV antibiotics secondary to pneumonia and likely urinary tract infection
[2023-03-18] MEDS: cefTRIAXone 2 GM/50 ML BAG IVPB (11:49)
--- NOTE | 2023-03-18 12:01 | DI.VRAD_ITS ---
PROCEDURE INFORMATION: Exam: CT Abdomen And Pelvis Without Contrast Exam date and time: 03/18/2023 10:49 AM Age: 72 years old Clinical indication: Other: Abdominal, elevated creatnine TECHNIQUE: Imaging protocol: Computed tomography of the abdomen and pelvis without contrast. Radiation optimization: All CT scans at this facility use at least one of these dose optimization techniques: automated exposure control; mA and/or kV adjustment per patient size (includes targeted exams where dose is matched to clinical indication); or iterative reconstruction. COMPARISON: CT CHEST/ABD/PEL WO 04/01/2022 4:35 PM FINDINGS: Lungs: Opacities in the right lower lobe may represent atelectasis or pneumonia.. Heart: There is calcification of the aortic valve annulus. Liver: Normal. No mass. Gallbladder and bile ducts: Cholecystectomy Pancreas: Pancreatic atrophy Spleen: Normal. No splenomegaly. Adrenal glands: Normal. No mass. Kidneys and ureters: There is no evidence of renal or ureteral calcifications. Stomach and bowel: Findings consistent with constipation. Appendix: No evidence of appendicitis. Intraperitoneal space: Unremarkable. No free air. No significant fluid collection. Vasculature: Unremarkable. No abdominal aortic aneurysm. Lymph nodes: Unremarkable. No enlarged lymph nodes. Urinary bladder: Distended bladder Reproductive: Surgical resection of the uterus Bones/joints: Unremarkable. No acute fracture. Soft tissues: Unremarkable. IMPRESSION: Opacities in the right lower lobe may represent atelectasis or pneumonia.. There is no evidence of renal or ureteral calcifications. Findings consistent with constipation Dictated and Authenticated by: Francy Luna MD. Ordering:BIANKA Holder MD
--- NOTE | 2023-03-18 12:02 | DI.VRAD_ITS ---
PROCEDURE INFORMATION: Exam: XR Chest Exam date and time: 03/18/2023 11:35 AM Age: 72 years old Clinical indication: Fever TECHNIQUE: Imaging protocol: Radiologic exam of the chest. Views: 2 views. COMPARISON: CT CHEST/ABD/PEL WO 04/01/2022 4:35 PM FINDINGS: Lungs: Mild opacities in the lower lobes on the lateral and in the mid lung region on the lateral may represent mild atelectasis or pneumonia. Pleural spaces: Unremarkable. No pleural effusion. No pneumothorax. Heart/Mediastinum: Unremarkable. No cardiomegaly. Bones/joints: Unremarkable. IMPRESSION: Mild opacities in the lower lobes on the lateral and in the mid lung region on the lateral may represent mild atelectasis or pneumonia. Dictated and Authenticated by: Francy Luna MD. Ordering:BIANKA Holder MD
[2023-03-18] MEDS: Doxycycline Hyclate 100 MG CAP PO ×2 (12:29→21:34)
[2023-03-18] MEDS: Insulin REGULAR-Human 100 UNITS/ML UNIT 15 UNITS SC (12:40)
[2023-03-18 12:55] LABS: Source Nasal/Nares
[2023-03-18 13:44] LABS: COVID-19 PCR negative (Negative)
--- NOTE | 2023-03-18 15:30 | W.PM.HP.N ---
Date of service: 03/18/23 Time of Service: 16:30 Assessment and Plan Assessment and plan (1) Hyperosmolar hyperglycemic state (HHS): Status: Acute Assessment and plan: Questionably as a result of pneumonia. Also concerns with compliance; last A1c in chart was in March of 2022 : 13.2. Dehydration and mild confusion (improving). Basal bolus insulin. Diabetic diet. IV fluid boluses / hydration. A1c pending. (2) Pneumonia: Status: Acute Assessment and plan: Bibasilar infiltrates. No elevated WBC count or fever. + cough. Procalcitonin pending. Cont rocephin and doxycycline. IS (3) Diabetes mellitus: Assessment and plan: As above. Holding metformin at this time. Cont basal/bolus insulin. (4) Hyperlipidemia: Status: Chronic Assessment and plan: Cont atorvastatin. (5) History of CVA (cerebrovascular accident): Assessment and plan: On aspirin and plavix. (6) Discharge planning issues: Status: Acute Assessment and plan: DNR/DNI Will have PT evaluate given c/o weakness. Likely d/t hyperosmolar state. (7) Constipation: Status: Acute Assessment and plan: Schedule miralax. Senna now. History of Present Illness History of Present Illness Chief Complaint: Generalized weakness and elevated glucose Narrative: This is a 72 yo female with a PMH of DM2, HTN, CVA secondary to embolism from carotid, HLD, depression, hypothyroidism, anemia. She reports several days of progressive generalized weakness. She reports her blood glucose levels have been elevated. + nausea with an episode of emesis the night before presentation. She has had a cough. No f/c, shortness of breath. She reports falls but not striking her head and no residual pain from a fall. She endorsed taking her insulin levemir the AM of admission. Initial VS: Vital Signs Temperature ?37.6 C ?03/18/23 09:02 Pulse ?86 ?03/18/23 09:02 Respiratory Rate ?18 ?03/18/23 09:02 Blood Pressure ?149/121 H ?03/18/23 09:02 Pulse Oximetry ?96 ?03/18/23 09:02 Normal WBC count. Hgb 13.2. VBG lactate 1.6. Na 132 K 4.4. Anion gap 18.7. BUN 36. Creatinine 1.5 (recent values of 0.9). Troponin neg. UA + ketones, tr leuk est 5-10 WBCs. Mod bacteria. Many epithelials. Glucose 711. CXR: Mild opacities in the lower lobes on the lateral and in the mid lung region on the lateral may represent mild atelectasis or pneumonia. CT abd/pelvis: Opacities in the right lower lobe may represent atelectasis or pneumonia.. There is no evidence of renal or ureteral calcifications. Findings consistent with constipation Rocephin and oral doxycycline initated in the ED. She was given a 1L bolus of NS. 15 units of SC insulin. INsulin Levemir 15 units. Another 500NS bolus ordered and was initiated upon admission. 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 (Acute) Depression (Acute) Hyperlipidemia (Chronic) Medical History Carpal tunnel syndrome, bilateral Chronic pain Depression, major Diabetes mellitus adult onset Diastolic dysfunction Epicondylitis H/O fall H/O gastroesophageal reflux (GERD) Heart murmur, systolic History of anemia History of CVA (cerebrovascular accident) Insomnia Lumbar radiculopathy Nonorganic sleep disorder Renal insufficiency Right shoulder pain Spinal stenosis Syncope and collapse Trochanteric bursitis, right hip Weakness of right arm Surgical History H/O: hysterectomy History of cholecystectomy Social History Smoking/Tobacco Use Status: Former Tobacco Use Smoking risk assessment performed?: Yes Alcohol Intake: never Drug use: Never Substance use type: does not use Household members: spouse Housing: house Current gender identity: female Gayatri/Buddhist: Zoroastrianism Do you feel safe at home: Yes Do you feel safe in your relationship?: Yes Meds Allergies and Home Medications Allergies Allergy/AdvReac Type Severity Reaction Status Date / Time morphine Allergy Severe Hives Unverified 03/18/23 09:06 insulin detemir Allergy Intermediate Unverified 03/18/23 09:06 [From Levemir U-100 Insulin] Home Medications Medication Instructions Recorded Confirmed Type bupropion HCl 150 mg 24 hr tablet, 150 mg PO DAILY 07/12/17 03/18/23 History extended release (Wellbutrin XL) calcium carbonate 500 mg calcium 500 mg PO BID 07/12/17 03/18/23 History (1,250 mg) tablet (Oyster Shell Calcium 500) ferrous sulfate 325 mg (65 mg 325 mg PO DAILY 07/12/17 04/01/22 History iron) tablet,delayed release atorvastatin 40 mg tablet (Lipitor) 40 mg PO QPM #60 tabs 07/27/17 03/18/23 Rx aspirin 81 mg chewable tablet 81 mg PO DAILY 09/04/19 03/18/23 History cholecalciferol (vitamin D3) 25 1,000 unit PO BID 09/04/19 04/01/22 History mcg (1,000 unit) tablet (Vitamin D3) clopidogrel 75 mg tablet (Plavix) 75 mg PO DAILY 09/04/19 03/18/23 History ezetimibe 10 mg tablet (Zetia) 10 mg PO DAILY 09/04/19 03/18/23 History lisinopril 5 mg tablet 30 mg PO DAILY 09/04/19 03/18/23 History amitriptyline 100 mg tablet 50 mg PO QHS 07/13/20 03/18/23 History metformin 1,000 mg tablet 1,000 mg PO BID 10/06/20 03/18/23 History (Glucophage) diclofenac sodium 1 % topical gel 4 gm topical BID PRN 04/01/22 04/01/22 History gabapentin 100 mg capsule See Rx Instructions .Route .COMPLEX 04/01/22 03/18/23 History insulin aspart U-100 100 unit/mL See Rx Instructions .Route .COMPLEX 04/01/22 03/18/23 History subcutaneous solution (Novolog U-100 Insulin aspart) insulin detemir U-100 100 unit/mL 50 unit subcut QPM 04/01/22 03/18/23 History subcutaneous solution (Levemir U-100 Insulin) semaglutide 7 mg tablet (Rybelsus) 2 tab PO DAILY 04/01/22 03/18/23 History pantoprazole 20 mg tablet,delayed 20 mg PO DAILY #30 tabs 04/04/22 03/18/23 Rx release (Protonix) Exam Narrative Exam Narrative: In bed eating meal. Notable bilateral tremor of hands Const General: cooperative, no acute distress and ill appearing (older appearing than stated age) chronically Orientation: alert, awake, oriented x3 and other (poor historian) [facility] Ears: hearing grossly normal bilaterally Mouth: moist mucous membranes Teeth and gingiva: edentulous Eyes General: appearance normal, both eyes and all related structures Sclera: sclerae normal Chest Chest: normal inspection of the chest Resp Effort & Inspection: normal respiratory effort, able to speak in complete sentences and no respiratory distress Auscultation: clear to auscultation bilaterally and diminished lung sounds (bases bilaterally) Cardio Rate: regular rate Rhythm: regular rhythm GI Inspection: normal to inspection and non-distended Palpation: soft and nontender Auscultation: normal bowel sounds Back/Spine/Pelvis Thoracic/Lumbar Spine: thoracic and lumbar spine normal to inspection Skin General skin exam: no rashes or lesions noted Trauma: no lacerations or abrasions Neuro General: patient alert, patient awake, patient oriented x3, moves all extremities and no focal motor deficits (some mild right sided pain from previous stroke at baseline) Cognition: abnormal cognition (mild impairment) Speech: speech normal Motor: tremor Extrem General: normal to inspection and no pedal edema Psych Appearance: grossly normal Mental Status: mental status grossly normal Speech and Movement: speech and movement normal Mood: congruent mood Affect: normal affect Results Labs 03/18/23 09:14 03/18/23 20:37 Labs: Laboratory Results - last 24 hr 03/18/23 03/18/23 03/18/23 09:11 09:14 09:14 WBC 8.43 RBC 4.63 Hgb 13.2 Hct 40.5 MCV 88 MCH 28.5 MCHC 32.6 RDW 13.1 Plt Count 314 MPV 9.3 Immature Gran % 0.6 Neutrophils % 83.0 Lymphocytes % 12.1 Monocytes % 3.9 Eosinophils % 0.0 Basophils % 0.4 Nucleated RBC % 0.0 Absolute Neutrophils 7.00 H Absolute Lymphocytes 1.02 L Absolute Monocytes 0.33 Absolute Eosinophils 0.00 Absolute Basophils 0.03 VBG pH VBG pCO2 VBG pO2 VBG HCO3 VBG Total CO2 VBG O2 Saturation VBG Base Excess VBG Lactate Sodium 132 L Potassium 4.4 Chloride 90 L Carbon Dioxide 23.3 Anion Gap 18.7 H BUN 36 H Creatinine 1.5 H Est GFR (CKD-EPI 2020) 37.26 Glucose 711 H* Calcium 9.8 Magnesium 2.2 Total Bilirubin 0.5 AST 17 ALT 25 Alkaline Phosphatase 208 H Troponin I < 50 Total Protein 8.5 H Albumin 3.4 Urine Color Yellow Urine Clarity Sl Cloudy Urine pH 5.5 Ur Specific [place] 1.020 Urine Protein >=300 H Urine Ketones 80 H Urine Blood Small H Urine Nitrite Negative Urine Bilirubin Negative Urine Urobilinogen 0.2 Ur Leukocyte Esterase Trace H Urine RBC 10-20 H Urine WBC 5-10 Ur Epithelial Cells Many Urine Crystals Negative Urine Bacteria Moderate Urine Casts Negative Urine Mucus Trace Ur Culture Indicated? No/Sq. Contamination Urine Glucose >=1000 H COVID-19 Source SARS-CoV-2 (PCR) 03/18/23 03/18/23 03/18/23 09:14 10:35 12:50 WBC RBC Hgb Hct MCV MCH MCHC RDW Plt Count MPV Immature Gran % Neutrophils % Lymphocytes % Monocytes % Eosinophils % Basophils % Nucleated RBC % Absolute Neutrophils Absolute Lymphocytes Absolute Monocytes Absolute Eosinophils Absolute Basophils VBG pH 7.33 VBG pCO2 42 VBG pO2 44 VBG HCO3 22 L VBG Total CO2 20 L VBG O2 Saturation 78 VBG Base Excess -4 L VBG Lactate 1.6 H Sodium Potassium Chloride Carbon Dioxide Anion Gap BUN Creatinine Est GFR (CKD-EPI 2020) Glucose Calcium Magnesium Total Bilirubin AST ALT Alkaline Phosphatase Troponin I Total Protein Albumin Urine Color Urine Clarity Urine pH Ur Specific [place] Urine Protein Urine Ketones Urine Blood Urine Nitrite Urine Bilirubin Urine Urobilinogen Ur Leukocyte Esterase Urine RBC Urine WBC Ur Epithelial Cells Urine Crystals Urine Bacteria Urine Casts Urine Mucus Ur Culture Indicated? Urine Glucose COVID-19 Source Nasal/Nares SARS-CoV-2 (PCR) negative Last Vital Signs Temp 37.6 C 03/18/23 09:02 Pulse 90 03/18/23 13:01 Resp 18 03/18/23 09:18 BP 166/59 H 03/18/23 13:01 Pulse Ox 90 L 03/18/23 13:01 Time Spent Time spent with Patient: 40-54 minutes Time was spent: preparing to see the patient(eg.review tests), obtaining and/or reviewing separately otained hiistory, ordering medications,tests, procedures, referring, communicating with other health day care attendant, indepentently interpreting results and counseling the patient
[2023-03-18] MEDS: Normal Saline 500 ML 1000 ML IV (16:04)
[2023-03-18] MEDS: Insulin Aspart 300 UNITS/3 ML PEN 20 UNITS SC (16:08)
[2023-03-18 17:29] LABS: Lab Add On Test DONE
[2023-03-18] MEDS: Enoxaparin 40 MG/0.4 ML SYR SC (18:25)
[2023-03-18 18:30] LABS: Hemoglobin A1C > 13.0 % (<5.7)
[2023-03-18 20:57] LABS: Anion Gap 10.6 mmol/L (3-11); BUN 41 mg/dL (7-18); CO2 26.4 mmol/L (21.0-32.0); CREATININE 1.4 mg/dL (0.55-1.02); Calcium 8.4 mg/dL (8.5-10.1); Chloride 97 mmol/L (98-107); Estimated GFR 40.47 (mL/min/1.73m2); Glucose 425 mg/dL (74-106); Potassium 4.1 mmol/L (3.5-5.1); Sodium 134 mmol/L (136-145)
[2023-03-18 21:18] LABS: Procalcitonin 0.1 ng/mL
[2023-03-18] MEDS: Atorvastatin 40 MG TAB PO (21:34)
[2023-03-18] MEDS: Gabapentin 100 MG CAP 200 MG PO (21:34)
[2023-03-18] MEDS: Amitriptyline 50 MG TAB PO (21:34)
[2023-03-19 01:00] VITALS: BP 154/69; PULSE 75; RESP 16; TEMP 36.8; O2SAT 96
[2023-03-19 06:04] VITALS: BP 117/64; PULSE 72; RESP 16; TEMP 36.6; O2SAT 94
[2023-03-19 07:04] LABS: Anion Gap 10.8 mmol/L (3-11); BUN 43 mg/dL (7-18); CO2 25.2 mmol/L (21.0-32.0); CREATININE 1.5 mg/dL (0.55-1.02); Calcium 8.8 mg/dL (8.5-10.1); Chloride 95 mmol/L (98-107); Estimated GFR 37.26 (mL/min/1.73m2); Glucose 431 mg/dL (74-106); Potassium 3.8 mmol/L (3.5-5.1); Sodium 131 mmol/L (136-145)
[2023-03-19] MEDS: Pantoprazole 20 MG TABCR PO (07:44)
--- NOTE | 2023-03-19 08:01 | PDOC.CMIN ---
Date of service: 03/19/23 Time of Service: 08:01 Care Management Initial Assmt Initial Assessment REASON FOR HOSPITALIZATION:: hyperglycemia PREVIOUS FUNCTIONAL STATUS/SOCIAL/FAMILY SUPPORTS:: Karie lives alone in a mobile home in [place], [place]. She had 2 children but her son in a drowning accident 5 years ago. She has a daughter who lives in [place]. Karie also has 2 grandchildren. 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 She uses a walker for ambulation and receives Meals on Wheels. Karie is independent with ADLs. CURRENT FUNCTIONAL STATUS:: Karie was lying in bed when CM met with her. She was polite but not very talkative. Karie has had difficulty managing her blood sugars with her most recent A1C being over 13. CM asked about her glucose testing at home. She continues to do finger sticks. She may benefit from a meeting with the life educator with consideration for a CGM. ADVANCE DIRECTIVES:: none on file Has patient been provided with info about the portal/API?: Yes Did the patient sign up for the portal?: No CODE STATUS:: DNR/DNI INSURANCE COVERAGE / FINANCIAL ISSUES:: Medicare CURRENT HOME/COMMUNITY SERVICES/EQUIPMENT:: uses a walker PRIMARY CARE PHYSICIAN:: Melodie Lay POTENTIAL DISCHARGE NEEDS:: Follow up with PCP and plan of care PATIENT/FAMILY EDUCATION NEEDS:: Review of discharge instructions, limitations, activity, diet, medications, follow up plan, discuss Ask Me Three TRANSPORTATION:: via private vehicle PLAN:: Anticipate Karie will return home with no new services. She will follow up with her community providers and plan of care as prescribed and transport with family. CM will support Karie and assess for discharge needs. 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 (Acute) Depression (Acute) Hyperlipidemia (Chronic) Medical History Carpal tunnel syndrome, bilateral Chronic pain Depression, major Diabetes mellitus adult onset Diastolic dysfunction Epicondylitis H/O fall H/O gastroesophageal reflux (GERD) Heart murmur, systolic History of anemia History of CVA (cerebrovascular accident) Insomnia Lumbar radiculopathy Nonorganic sleep disorder Renal insufficiency Right shoulder pain Spinal stenosis Syncope and collapse Trochanteric bursitis, right hip Weakness of right arm Surgical History H/O: hysterectomy History of cholecystectomy Social History Smoking/Tobacco Use Status: Former Tobacco Use Smoking risk assessment performed?: Yes Alcohol Intake: never Drug use: Never Substance use type: does not use Household members: spouse Housing: house Current gender identity: female Gayatri/Rastafari: Amish Do you feel safe at home: Yes Do you feel safe in your relationship?: Yes
[2023-03-19 08:03] VITALS: O2SAT 94
[2023-03-19] MEDS: Gabapentin 100 MG CAP PO (08:49)
[2023-03-19] MEDS: buPROPion-XL 150 MG TABCR PO (08:49)
[2023-03-19] MEDS: Doxycycline Hyclate 100 MG CAP PO ×2 (08:49→19:51)
[2023-03-19] MEDS: Clopidogrel 75 MG TAB PO (08:49)
[2023-03-19] MEDS: Ezetimibe 10 MG TAB PO (08:49)
[2023-03-19] MEDS: Polyethylene Glycol 3350 17 GM PACKET PO (08:50)
[2023-03-19] MEDS: Aspirin 81 MG CHEW PO (08:50)
[2023-03-19] MEDS: Insulin Aspart 300 UNITS/3 ML PEN 50 UNITS SC ×2 (08:51→12:46)
[2023-03-19] MEDS: cefTRIAXone 2 GM/50 ML BAG IVPB (09:03)
[2023-03-19] MEDS: Normal Saline Flush 10 ML SYR IVP ×2 (09:03→19:50)
[2023-03-19] MEDS: Normal Saline 1,000 ML 1000 ML IV (10:28)
--- NOTE | 2023-03-19 10:40 | IN_ITS ---
PT Notes Visit Reasons: Pneumonia, Hyperosmolar, Hyperglycemia Inpatient Physical Therapy Evaluation Date: 03/19/23 Referring Doctor: Dr. Duque PT Orders: PT CONSULT: limited ability to ambulate Precautions: fall, standard Patient Profile/Admitting Diagnosis: Patient admitted 03/19/23 due to hyperglycemia. 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 She recently lost her , whom she cared for prior to his . States that she normally gets around independently, occasionally using a walker if she feels that she needs it. She drives, grocery shops, etc. Admits to 3-4 falls this past year, generally occuring when trying to stand up from a chair. Equipment Owned/DME: [employer], ronald Subjective: Karie is sitting up in chair, agreeable to PT consult. States that she'd like to get back to bed at end of session. Reports weakness in her right leg that's been present for a while. States that sometimes her balance is off, and in those cases, she tends to use a walker, but mostly she gets around independently. Objective: General Observation: Sitting comfortably in chair, IV in LUE. Pleasant and cooperative throughout session. Mental Status: A&Ox3 Pain: denies ROM: Right Upper Extremity: WFL for shoulders, elbows and wrists Left Upper Extremity: WFL for shoulders, elbows and wrists Right Lower Extremity: Hip, knee and ankle motion all WFL Left Lower Extremity: Hip, knee and ankle motion all WFL Strength: Right Upper Extremity: Shoulder flexion 4/5. Biceps 4-/5. Triceps 4-/5. Health Information Internship is weak, but equal. Left Upper Extremity: Shoulder flexion 4/5. Biceps 4-/5. Triceps 4-/5. Health Information Internship is weak, but equal. Right Lower Extremity: Hip flexion 4-/5. Quads 4-/5. HS 3+/5. Ankle DF 4+/5. Left Lower Extremity: Hip flexion 4+/5. Quads 4+/5. HS 4/5. Ankle DF 4+/5. Bed Mobility/Transfers: sit-stand: SBA. Does have minor LOB on first attempt, with poorly controlled descent back to chair. stand-sit: SBA, with cues for technique sit-supine: independent scooting in bed: independent toileting: independent with clothing management and transfer, max A for self- care Gait: Ambulates 50' with FWW, supervision and assistance for management of IV pole. Slow, cautious gait pattern. Balance: Static Sitting: normal Dynamic Sitting: good Static Standing: good Dynamic Standing: fair 4-Position Balance Test: 0/4 small ADAMS: unable (requires CGA throughout) partial tandem: unable full tandem: unable single leg stance: unable Special Tests: Mobility Limitations Standardized Measure [facility] 6 clicks Basic Mobility Inpatient Short Form: Raw Score: 22 21% impairment Informed Consent/Education: Patient instructed in purpose of PT consult and plan of care. Therapeutic Exercises: 1. sit-stand x 5, cues for technique and balance upon standing. Reps limited by fatigue Assessment: Patient is a 72 year old female referred to physical therapy services with the diagnosis of mobility impairments during hospitalization for medical management of hyperglycemic event. Patient presents with clinical signs and symptoms consistent with diagnosis, with chronic balance impairments putting her at increased risk for falls. She requires skilled PT intervention to maximize her safety and mobility during her acute care stay, and will benefit from PT upon discharge to address chronic deficits. She currently demonstrates the following impairment level findings: 1. UE weakness 2. RLE weakness 3. balance impairments 4. h/o falls 5. decreased activity tolerance Impairments are contributing to the following functional limitations: 1. unable to tolerate community distance ambulation 2. increased fall risk 3. weakness resulting in decreased safety with transfers Patient is assessed as a Low [id number] complexity based on the following: History: 72 year old female seen in ICU, presenting with acute on chronic mobility issues with h/o falls. Complicating factors include acute medical issues and multiple health conditions including poorly controlled diabetes. Examination: functional limitations as noted above Presentation: stable Decision Making: low Goals: Goals X1 week 1. Supine-Sit : supervision 2. Sit-Supine : supervision 3. Sit-Stand : supervision 4. Stand-Sit : supervision 5. Bed-Chair : supervision with FWW 6. Chair-Bed : supervision with FWW 7. Gait : supervision with FWW x 100' Plan of Care/Treatment Plan: 1-2x/day, 7 days/week x 1 week. Plan of care has been reviewed with the INSTALLATION COORDINATOR providing the service under Physical Therapy direction. Initiate Physical Therapy intervention for strengthening, bed mobility, transfers, gait, stairs, balance training, use of assistive device. DISCHARGE RECOMMENDATIONS: Home with services : PT Also encouraged consistent use of FWW at home due to balance impairements. TREATMENT CODE/TIME: 10:45 - 11:05 ([id number]) Michell Montemayor, PT, DPT [facility]
--- NOTE | 2023-03-19 12:10 | W.PM.PROGNOT ---
Date of Service Date of service: 03/19/23 Time of Service: 12:11 Assessment and Plan Assessment and plan (1) Hyperosmolar hyperglycemic state (HHS): Status: Acute Assessment and plan: Questionably as a result of pneumonia. Also concerns with compliance; last A1c in chart was in March of 2022 : 13.2. Dehydration and mild confusion (improving). Basal bolus insulin. Doses have required increases with goal glucose levels not yet achieved. Diabetic diet. IV fluid boluses / hydration. A1c >13 (2) Pneumonia: Status: Acute Assessment and plan: Bibasilar infiltrates. No elevated WBC count or fever. + cough. Procalcitonin 0.1. Cont rocephin and doxycycline. IS (3) Diabetes mellitus: Assessment and plan: As above. Restarting metformin Cont basal/bolus insulin. (4) Hyperlipidemia: Status: Chronic Assessment and plan: Cont atorvastatin. (5) History of CVA (cerebrovascular accident): Assessment and plan: On aspirin and plavix. Residual right sided weakness / clumsiness. (6) Discharge planning issues: Status: Acute Assessment and plan: DNR/DNI Will have PT evaluate given c/o weakness. Likely d/t hyperosmolar state. (7) Constipation: Status: Acute Assessment and plan: Had BM yesterday. MIralax. Subjective Subjective Patient reports: no new complaints, tolerating a regular diet and afebrile; denies nausea, vomiting or shortness of breath Exam Narrative Exam Narrative: Sitting in chair eating breakfast. No tremor noted. Const General: cooperative, no acute distress and ill appearing (older appearing than stated age) chronically Orientation: alert, awake, oriented x3 and other (poor historian) [facility] Ears: hearing grossly normal bilaterally Mouth: moist mucous membranes Teeth and gingiva: edentulous Eyes General: appearance normal, both eyes and all related structures Sclera: sclerae normal Chest Chest: normal inspection of the chest Resp Effort & Inspection: normal respiratory effort, able to speak in complete sentences and no respiratory distress Auscultation: clear to auscultation bilaterally and diminished lung sounds (bases bilaterally) Cardio Rate: regular rate Rhythm: regular rhythm GI Inspection: normal to inspection and non-distended Palpation: soft and nontender Auscultation: normal bowel sounds Back/Spine/Pelvis Thoracic/Lumbar Spine: thoracic and lumbar spine normal to inspection Skin General skin exam: no rashes or lesions noted Trauma: no lacerations or abrasions Neuro General: patient alert, patient awake, patient oriented x3, moves all extremities and no focal motor deficits (some mild right sided pain from previous stroke at baseline) Cognition: abnormal cognition (mild impairment) Speech: speech normal Extrem General: normal to inspection and no pedal edema Psych Appearance: grossly normal Mental Status: mental status grossly normal Speech and Movement: speech and movement normal Mood: congruent mood Affect: normal affect Objective Last Vital Signs Temp 37.2 C 03/19/23 07:20 Pulse 76 03/19/23 07:20 Resp 16 03/19/23 06:04 BP 160/72 H 03/19/23 07:20 Pulse Ox 94 03/19/23 08:03 Laboratory Results - last 24 hr 03/18/23 03/18/23 03/18/23 09:14 09:14 12:50 Sodium Potassium Chloride Carbon Dioxide Anion Gap BUN Creatinine Est GFR (CKD-EPI 2020) Glucose Hemoglobin A1c > 13.0 H Calcium Procalcitonin COVID-19 Source Nasal/Nares SARS-CoV-2 (PCR) negative Add-On Test Request DONE 03/18/23 03/18/23 03/19/23 20:37 20:37 05:42 Sodium 134 L 131 L Potassium 4.1 3.8 Chloride 97 L 95 L Carbon Dioxide 26.4 25.2 Anion Gap 10.6 10.8 BUN 41 H 43 H Creatinine 1.4 H 1.5 H Est GFR (CKD-EPI 2020) 40.47 37.26 Glucose 425 H 431 H Hemoglobin A1c Calcium 8.4 L 8.8 Procalcitonin 0.1 COVID-19 Source SARS-CoV-2 (PCR) Add-On Test Request Time Spent with Patient Time Spent with Patient: 25-34 minutes Time was spent: preparing to see the patient(eg.review tests), ordering medications,tests, procedures, referring, communicating with other health healthcare business analyst and indepentently interpreting results
[2023-03-19] MEDS: metFORMIN 500 MG TAB PO (16:53)
[2023-03-19 17:00] VITALS: BP 151/69; PULSE 94; RESP 24; TEMP 36.2; O2SAT 95
[2023-03-19] MEDS: Enoxaparin 40 MG/0.4 ML SYR SC (17:46)
[2023-03-19] MEDS: Atorvastatin 40 MG TAB PO (19:52)
[2023-03-19 20:38] VITALS: BP 133/64; PULSE 73; RESP 20; TEMP 36.9; O2SAT 95
[2023-03-19] MEDS: Gabapentin 100 MG CAP 200 MG PO (21:11)
[2023-03-19] MEDS: Amitriptyline 50 MG TAB PO (21:12)
[2023-03-20 00:25] VITALS: BP 119/59; PULSE 73; RESP 20; TEMP 37.1; O2SAT 91
[2023-03-20 02:45] VITALS: BP 164/67; PULSE 76; RESP 20; TEMP 37.1; O2SAT 93
[2023-03-20 06:36] LABS: Abs Immature Grans 0.07 10^3/uL (0.0-0.06); Absolute Basophil Count 0.05 10^3/uL (0.0-0.2); Absolute Eosinophil Count 0.14 10^3/uL (0.0-0.7); Absolute Monocyte Count 0.59 10^3/uL (0.1-0.8); Basophils % 0.4; Eosinophils % 1.2; HCT 37.2 % (36.0-46.0); HGB 12.5 g/dL (11.2-15.7); Immature Grans % 0.6; Lymphocytes % 25.7; MCH 29.2 pg (27.0-33.0); MCHC 33.6 % (32.0-36.0); MCV 87 fL (80-95); MPV 9.4 fL (8.0-11.0); Monocytes % 5.2; Neutrophils % 66.9; Platelet Count 232 10^3/uL (130-400); RBC 4.28 10^6/uL (3.93-5.22); RDW 13.3 % (11.7-14.6); RDW-SD 42.2 fL; WBC 11.34 10^3/uL (4.4-10.8)
[2023-03-20 06:48] LABS: Absolute Lymphocyte Count 2.91 10^3/uL (1.2-3.4); Absolute Neutrophil Count 7.59 10^3/uL (1.2-6.7)
[2023-03-20 06:49] LABS: Anion Gap 7.2 mmol/L (3-11); BUN 33 mg/dL (7-18); CO2 25.8 mmol/L (21.0-32.0); Calcium 8.6 mg/dL (8.5-10.1); Chloride 99 mmol/L (98-107); Estimated GFR 60.61 (mL/min/1.73m2); Glucose 327 mg/dL (74-106); Sodium 132 mmol/L (136-145)
[2023-03-20 06:59] VITALS: BP 171/80; PULSE 78; RESP 16; TEMP 36.7; O2SAT 92
[2023-03-20] MEDS: cefTRIAXone 2 GM/50 ML BAG IVPB (07:35)
[2023-03-20] MEDS: Insulin Aspart 300 UNITS/3 ML PEN 50 UNITS SC (07:39)
[2023-03-20] MEDS: Ezetimibe 10 MG TAB PO (07:41)
[2023-03-20] MEDS: metFORMIN 500 MG TAB PO ×2 (07:41→16:31)
[2023-03-20] MEDS: Aspirin 81 MG CHEW PO (07:41)
[2023-03-20] MEDS: buPROPion-XL 150 MG TABCR PO (07:42)
[2023-03-20] MEDS: Gabapentin 100 MG CAP PO (07:42)
[2023-03-20] MEDS: Clopidogrel 75 MG TAB PO (07:42)
[2023-03-20] MEDS: Pantoprazole 20 MG TABCR PO (07:42)
[2023-03-20] MEDS: Doxycycline Hyclate 100 MG CAP PO ×2 (07:42→20:07)
[2023-03-20] MEDS: Polyethylene Glycol 3350 17 GM PACKET PO (07:42)
[2023-03-20] MEDS: Normal Saline Flush 10 ML SYR IVP ×2 (07:43→20:07)
--- NOTE | 2023-03-20 09:05 | PDOC.CMPRO ---
Date of service: 03/20/23 Time of Service: 09:05 Care Management Progress Note Progress Note Text Progress Note Text: S/O:Karie was sitting up in a chair when CM met with her. She stated that she felt good and thought she might be able to go home later. Elida remains hyperglycemic with glucose levels in the 300s and 400s. She was seen by the breastfeeding educator today for a possible CGM. It appears that Karie already has one but does not like it and therefore doews not use it. It is likely Elida will discharge home tomorrow. A: Karie is a 72 year old woman admitted on 03/18/23 with pneumonia and hyperglycemia P: Anticipate Karie will return home with no new services. She will follow up with her community providers and plan of care as prescribed and transport with family. CM will support Karie and assess for discharge needs.
[2023-03-20] MEDS: Insulin Aspart 300 UNITS/3 ML PEN 20 UNITS SC ×2 (11:22→16:31)
--- NOTE | 2023-03-20 12:35 | W.INDIABCONS ---
Date of service: 03/20/23 Time of Service: 12:35 Diabetes Inpatient Consult Reason for Visit: dm2 DESCRIPTION/ASSESSMENT: Met with Karie today. I have consulted with her in the past in outpatient setting in May 2022 ( A1C 04/02/22: 13.2%). Admitted with HHS, metabolic encephalopathy with PNA A1C > 13%. Reports medication adherence. DM meds include: 50 u levemire q HS, 20 u aspart at meals, metformin and rybellsus. Has a Vladimir 2 CGM but does not like using it. States she checks her BS QID but has no record to show. At very high risk for complications associated with poor glycemic control. Recently lost her , glycemic management not a priority for Karie at this time. INTERVENTION: Karie declined diabetes education. States that she eats meals on wheels mostly at home and eggs and toast for breakfast. Diet appears to be well balanced. PLAN: WIll be available prn. Time Spent in Nutritional Counseling and Treatment: 10
[2023-03-20 14:22] VITALS: BP 130/80; PULSE 85; RESP 17; TEMP 36.5; O2SAT 96
--- NOTE | 2023-03-20 14:38 | W.PM.PROGNOT ---
Date of Service Date of service: 03/20/23 Time of Service: 14:38 Assessment and Plan Assessment and plan (1) Hyperosmolar hyperglycemic state (HHS): Status: Acute Assessment and plan: Questionably as a result of pneumonia. Also concerns with compliance; last A1c in chart was in March of 2022 : 13.2. Dehydration and mild confusion (improving). Basal bolus insulin. Doses have required increases with goal glucose levels not yet achieved but improving. Diabetic diet.. A1c >13 (2) Pneumonia: Status: Acute Assessment and plan: Bibasilar infiltrates. No elevated WBC count or fever. + cough. Procalcitonin 0.1. Cont rocephin and doxycycline. Likely change to po meds tomorrow. IS (3) Diabetes mellitus: Assessment and plan: As above. Restarting metformin Cont basal/bolus insulin. (4) Hyperlipidemia: Status: Chronic Assessment and plan: Cont atorvastatin. (5) History of CVA (cerebrovascular accident): Assessment and plan: On aspirin and plavix. Residual right sided weakness / clumsiness. (6) Discharge planning issues: Status: Acute Assessment and plan: DNR/DNI PT d/t weakness: Likely d/t hyperosmolar state. (7) Constipation: Status: Acute Assessment and plan: Had BM on 03/18. Miralax. Subjective Subjective Patient reports: no new complaints, tolerating a regular diet and afebrile; denies nausea, vomiting or shortness of breath Interval history since last seen: She denies any confusion. Exam Narrative Exam Narrative: Sitting semi-reclined in bed. Const General: cooperative and no acute distress Orientation: alert, awake, oriented x3 and other (poor historian) [facility] Ears: hearing grossly normal bilaterally Mouth: moist mucous membranes Teeth and gingiva: edentulous Eyes General: appearance normal, both eyes and all related structures Sclera: sclerae normal Chest Chest: normal inspection of the chest Resp Effort & Inspection: normal respiratory effort Auscultation: clear to auscultation bilaterally and diminished lung sounds (bases bilaterally) Cardio Rate: regular rate Rhythm: regular rhythm GI Inspection: normal to inspection and non-distended Palpation: soft and nontender Auscultation: normal bowel sounds Back/Spine/Pelvis Thoracic/Lumbar Spine: thoracic and lumbar spine normal to inspection Skin General skin exam: no rashes or lesions noted Trauma: no lacerations or abrasions Neuro General: patient alert, patient awake, patient oriented x3, moves all extremities and no focal motor deficits (some mild right sided pain from previous stroke at baseline) Cognition: abnormal cognition (mild impairment) Speech: speech normal Extrem General: normal to inspection and no pedal edema Psych Appearance: grossly normal Mental Status: mental status grossly normal Speech and Movement: speech and movement normal Mood: congruent mood Affect: normal affect Objective Last Vital Signs Temp 36.5 C 03/20/23 14:22 Pulse 85 03/20/23 14:22 Resp 17 03/20/23 14:22 BP 130/80 03/20/23 14:22 Pulse Ox 96 03/20/23 14:22 Laboratory Results - last 24 hr 03/20/23 03/20/23 06:04 06:04 WBC 11.34 H RBC 4.28 Hgb 12.5 Hct 37.2 MCV 87 MCH 29.2 MCHC 33.6 RDW 13.3 Plt Count 232 MPV 9.4 Immature Gran % 0.6 Neutrophils % 66.9 Lymphocytes % 25.7 Monocytes % 5.2 Eosinophils % 1.2 Basophils % 0.4 Nucleated RBC % 0.0 Absolute Neutrophils 7.59 H Absolute Lymphocytes 2.91 Absolute Monocytes 0.59 Absolute Eosinophils 0.14 Absolute Basophils 0.05 Sodium 132 L Potassium 4.0 Chloride 99 Carbon Dioxide 25.8 Anion Gap 7.2 BUN 33 H Creatinine 1.0 Est GFR (CKD-EPI 2020) 60.61 Glucose 327 H Calcium 8.6 Time Spent with Patient Time Spent with Patient: 25-34 minutes Time was spent: preparing to see the patient(eg.review tests), ordering medications,tests, procedures, referring, communicating with other health acute care nursing assistant, indepentently interpreting results and care coordination
[2023-03-20] MEDS: Enoxaparin 40 MG/0.4 ML SYR SC (16:30)
[2023-03-20] MEDS: Atorvastatin 40 MG TAB PO (20:07)
[2023-03-20] MEDS: Gabapentin 100 MG CAP 200 MG PO (21:17)
[2023-03-20] MEDS: Amitriptyline 50 MG TAB PO (21:17)
[2023-03-21 01:30] VITALS: BP 152/83; PULSE 78; RESP 15; TEMP 36.4; O2SAT 94
[2023-03-21 06:39] LABS: Abs Immature Grans 0.08 10^3/uL (0.0-0.06); Absolute Basophil Count 0.06 10^3/uL (0.0-0.2); Absolute Eosinophil Count 0.18 10^3/uL (0.0-0.7); Absolute Lymphocyte Count 2.14 10^3/uL (1.2-3.4); Absolute Monocyte Count 0.65 10^3/uL (0.1-0.8); Basophils % 0.7; Eosinophils % 2.1; HCT 37.3 % (36.0-46.0); HGB 12.4 g/dL (11.2-15.7); Immature Grans % 0.9; Lymphocytes % 24.9; MCH 28.7 pg (27.0-33.0); MCHC 33.2 % (32.0-36.0); MCV 86 fL (80-95); MPV 9.1 fL (8.0-11.0); Monocytes % 7.5; Neutrophils % 63.9; Platelet Count 206 10^3/uL (130-400); RBC 4.32 10^6/uL (3.93-5.22); RDW 13.2 % (11.7-14.6); RDW-SD 41.6 fL; WBC 8.61 10^3/uL (4.4-10.8)
[2023-03-21 07:04] LABS: BUN 27 mg/dL (7-18); CREATININE 0.9 mg/dL (0.55-1.02); Calcium 8.8 mg/dL (8.5-10.1); Chloride 100 mmol/L (98-107); Estimated GFR 68.77 (mL/min/1.73m2); Glucose 293 mg/dL (74-106); Sodium 134 mmol/L (136-145)
[2023-03-21 07:21] VITALS: BP 173/88; PULSE 72; RESP 17; TEMP 36.5; O2SAT 95
[2023-03-21] MEDS: Pantoprazole 20 MG TABCR PO (08:15)
[2023-03-21] MEDS: buPROPion-XL 150 MG TABCR PO (08:15)
[2023-03-21] MEDS: Gabapentin 100 MG CAP PO (08:15)
[2023-03-21] MEDS: Acetaminophen 325 MG TAB PO (08:15)
[2023-03-21] MEDS: Doxycycline Hyclate 100 MG CAP PO (08:15)
[2023-03-21] MEDS: Ezetimibe 10 MG TAB PO (08:20)
[2023-03-21] MEDS: Aspirin 81 MG CHEW PO (08:20)
[2023-03-21] MEDS: metFORMIN 500 MG TAB PO (08:20)
[2023-03-21] MEDS: cefTRIAXone 2 GM/50 ML BAG IVPB (08:21)
[2023-03-21] MEDS: Clopidogrel 75 MG TAB PO (08:21)
[2023-03-21] MEDS: Polyethylene Glycol 3350 17 GM PACKET PO (08:22)
[2023-03-21] MEDS: Normal Saline Flush 10 ML SYR IVP ×2 (08:23→09:49)
[2023-03-21] MEDS: Normal Saline 500 ML 30 ML IV (08:24)
[2023-03-21] MEDS: Insulin Aspart 300 UNITS/3 ML PEN 55 UNITS SC (08:29)
[2023-03-21 09:32] VITALS: O2SAT 95
[2023-03-21] MEDS: Insulin Aspart 300 UNITS/3 ML PEN 20 UNITS SC (11:52)
--- NOTE | 2023-03-21 11:56 | DSE_ITS ---
Date of service: 03/21/23 Time of Service: 11:57 DS: Diagnosis Discharge Diagnosis (1) Hyperosmolar hyperglycemic state (HHS): Status: Acute Asessment and Plan: Poorly controlled glucose overall with an A1c of >13. Will need ongoing adjustment of insulin. She does not use the CMG that she has had prescribed in the past. early childhood special educator was consulted. (2) Pneumonia: Status: Acute Asessment and Plan: Her WBC count increased to 11.34 then normalized. Cont antibiotic with oral cefpodoxime 200mg BID for 10 doses. (3) Diabetes mellitus: Asessment and Plan: As above. (4) Hyperlipidemia: Status: Chronic Asessment and Plan: Cont Atorvastatin (5) History of CVA (cerebrovascular accident): Asessment and Plan: Residual clumsiness of RUE. On ASA, Plavix and statin. 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 She reports several days of progressive generalized weakness.? She reports her blood glucose levels have been elevated.? + nausea with an episode of emesis the night before presentation. She has had a cough.? No f/c, shortness of breath.? She reports falls but not striking her head and no residual pain from a fall. ? She endorsed taking her insulin levemir the AM of admission. WBC count was normal. CXR showed bibasilar infiltrates. Rocephin and doxycycline initiated. See Diagnosis Home Meds and New Rx's Prescriptions: New cefpodoxime 200 mg tablet 200 mg PO BID Qty: 10 0RF Rx Instructions: must administer with a meal/food First dose on 03/22/23. Continued metformin [Glucophage] 1,000 mg Tablet 1,000 mg PO BID clopidogrel [Plavix] 75 mg Tablet 75 mg PO DAILY aspirin 81 mg Tablet,Chewable 81 mg PO DAILY Hold Instructions: discuss with pcp if to resume if indication, no recommended per neurology for stroke prevention/treatment at this time. ezetimibe [Zetia] 10 mg Tablet 10 mg PO DAILY cholecalciferol (vitamin D3) [Vitamin D3] 1,000 unit (25 mcg) Tablet 1,000 unit PO BID Patient Comments: not taking lisinopril 5 MG tablet 30 mg PO DAILY calcium carbonate [Oyster Shell Calcium 500] 500 MG tablet 500 mg PO BID ferrous sulfate 325 MG tablet,delayed release (DR/EC) 325 mg PO DAILY Patient Comments: not taking bupropion HCl [Wellbutrin XL] 150 MG tablet extended release 24 hr 150 mg PO DAILY amitriptyline 100 mg tablet 50 mg PO QHS atorvastatin [Lipitor] 40 MG tablet 40 mg PO QPM Qty: 60 0RF diclofenac sodium 1 % gel 4 gm TP BID PRN insulin aspart U-100 [Novolog U-100 Insulin aspart] 100 unit/mL solution See Rx Instructions .ROUTE .COMPLEX Patient Comments: INJECT 50 UNITS UNDER THE SKIN BEFORE BREAKFAST, 20 UNITS BEOFRE LUNCH, AND 20 UNITS BEFORE DINNER Rx Instructions: Inject 20-50 units subcutaneously three times a day. Inject 50 units before breakfast, 20 units before lunch and 20 units before dinner Levemir U-100 Insulin 100 unit/mL solution 50 unit SUBCUT QPM Patient Comments: INJECT 40 UNITS UNDER THE SKIN IN THE MORNING gabapentin 100 mg capsule See Rx Instructions .ROUTE .COMPLEX Patient Comments: START WITH 1 CAP AT BEDTIME AND IN 3 TO 4 DAYS INCREASE TO 2 AT BEDTIME, THEN IN ANOTHER 3 TO 4 DAYS TRY 1 IN THE MORNING AND 2 AT BEDTIME. Rx Instructions: Take 1 capin the AM and 2 caps at HS Rybelsus 7 mg tablet 2 tab PO DAILY Patient Comments: TAKE ONE TABLET BY MOUTH EVERY DAY pantoprazole [Protonix] 20 mg tablet,delayed release (DR/EC) 20 mg PO DAILY Qty: 30 0RF Discharge Instructions Activity:: Activity as Tolerated Equipment/Supplies:: No Equipment Needed Diet:: Diabetic diet Discharge Orders Discharge Orders: Discharge Order (Routine); Ordered 03/21/23 Ordered By: Herb Duque DS: Summary Time Spent with Patient providing and/or coordinating discharge services: Greater than 30 minutes Status at Discharge Functional status at discharge: independent ambulation Overall status at discharge: patient is progressing back to baseline Mental Status: mental status grossly normal Speech and Movement: speech and movement normal Mood: congruent mood Affect: normal affect Exam Narrative Exam Narrative: Sitting in recliner Const General: cooperative and no acute distress Orientation: alert, awake, oriented x3 and other (poor historian) HENW[place] Ears: hearing grossly normal bilaterally Mouth: moist mucous membranes Teeth and gingiva: edentulous Eyes General: appearance normal, both eyes and all related structures Sclera: sclerae normal Chest Chest: normal inspection of the chest Resp Effort & Inspection: normal respiratory effort Auscultation: clear to auscultation bilaterally and diminished lung sounds (bases bilaterally) Cardio Rate: regular rate Rhythm: regular rhythm GI Inspection: normal to inspection and non-distended Palpation: soft and nontender Auscultation: normal bowel sounds Back/Spine/Pelvis Thoracic/Lumbar Spine: thoracic and lumbar spine normal to inspection Skin General skin exam: no rashes or lesions noted Trauma: no lacerations or abrasions Neuro General: patient alert, patient awake, patient oriented x3, moves all extremities and no focal motor deficits (some mild right sided pain from previous stroke at baseline) Cognition: abnormal cognition (mild impairment) Speech: speech normal Extrem General: normal to inspection and no pedal edema Psych Appearance: grossly normal Mental Status: mental status grossly normal Speech and Movement: speech and movement normal Mood: congruent mood Affect: normal affect DS: Data Vitals/I&O Vitals and I&O: Vital Signs Temperature 36.5 C 03/21/23 07:21 Temperature Source Tympanic 03/21/23 07:21 Pulse 72 03/21/23 07:21 Pulse Rhythm Regular 03/21/23 08:57 Respiratory Rate 17 03/21/23 07:21 Respiratory Effort Normal 03/21/23 08:57 Respiratory Depth Normal 03/21/23 08:57 Respiratory Pattern Normal 03/21/23 08:57 Blood Pressure 173/88 H 03/21/23 07:21 Blood Pressure Mean 97 03/19/23 01:00 Blood Pressure Position Supine 03/19/23 01:00 Pulse Oximetry 95 03/21/23 09:32 Oxygen Delivery Method Room Air 03/21/23 09:32 Oxygen Flow Rate 0 03/21/23 09:32 Pain Level 0 03/21/23 09:15 Comment RN informed of BP 03/20/23 06:59 Intake & Output 05/22/23 05/22/23 05/23/23 11:59 23:59 11:59 Intake Total 1250 / 2350 1100 / 2350 410 / 410 Output Total 900 / 1800 900 / 1800 1650 / 1650 Balance 350 / 550 200 / 550 -1240 / -1240 Intake: IV 50 / 60 10 / 60 50 / 50 Oral 1200 / 2290 1090 / 2290 360 / 360 Output: Urine 900 / 1800 900 / 1800 1650 / 1650 Other: Urine Color Pale Yellow Yellow Yellow Urine Appearance Clear Clear Clear Urine Odor None Normal None Comment no hat Voiding Methods Bedside Commode Bedside Commode Bedside Commode Data Completed and Pending Labs on day of discharge: Labs from last 24 hours 03/21/23 03/21/23 06:20 06:20 WBC 8.61 RBC 4.32 Hgb 12.4 Hct 37.3 MCV 86 MCH 28.7 MCHC 33.2 RDW 13.2 Plt Count 206 MPV 9.1 Immature Gran % 0.9 Neutrophils % 63.9 Lymphocytes % 24.9 Monocytes % 7.5 Eosinophils % 2.1 Basophils % 0.7 Nucleated RBC % 0.0 Absolute Neutrophils 5.50 Absolute Lymphocytes 2.14 Absolute Monocytes 0.65 Absolute Eosinophils 0.18 Absolute Basophils 0.06 Sodium 134 L Potassium 4.0 Chloride 100 Carbon Dioxide 28.0 Anion Gap 6.0 BUN 27 H Creatinine 0.9 Est GFR (CKD-EPI 2020) 68.77 Glucose 293 H Calcium 8.8 Preliminary micro results at discharge 03/18/23 10:35 Blood Culture - Preliminary Blood NO GROWTH 48 HOURS 03/18/23 10:20 Blood Culture - Preliminary Blood NO GROWTH 48 HOURS PFSH All Active Problems Pneumonia (Acute) Acute metabolic encephalopathy (Acute) Constipation (Acute) Pneumonia (Acute) Hyperosmolar hyperglycemic state (HHS) (Acute) TIA (transient ischemic attack) (Acute) Discharge planning issues (Acute) Ambulatory dysfunction (Acute) Hypothyroid (Chronic) Falling (Acute) Trochanteric bursitis, left hip (Acute) Transaminitis (Acute) Anemia (Acute) Hypertension (Acute) Diabetes (Chronic) 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 (Acute) Depression (Acute) Hyperlipidemia (Chronic) Medical History Carpal tunnel syndrome, bilateral Chronic pain Depression, major Diabetes mellitus adult onset Diastolic dysfunction Epicondylitis H/O fall H/O gastroesophageal reflux (GERD) Heart murmur, systolic History of anemia History of CVA (cerebrovascular accident) Insomnia Lumbar radiculopathy Nonorganic sleep disorder Renal insufficiency Right shoulder pain Spinal stenosis Syncope and collapse Trochanteric bursitis, right hip Weakness of right arm Surgical History H/O: hysterectomy History of cholecystectomy Social History Smoking/Tobacco Use Status: Former Tobacco Use Smoking risk assessment performed?: Yes Alcohol Intake: never Drug use: Never Substance use type: does not use Household members: spouse Housing: house Current gender identity: female Gayatri/Moravian: Voodoo Do you feel safe at home: Yes Do you feel safe in your relationship?: Yes Time Spent with Patient Time Spent with Patient: 45-69 minutes Time was spent: preparing to see the patient(eg.review tests), obtaining and/or reviewing separately otained hiistory, referring, communicating with other health child care nurse, indepentently interpreting results, counseling the patient and care coordination
[2023-03-21 13:17] VITALS: BP 136/74; PULSE 80; RESP 18; TEMP 36.4; O2SAT 97
--- NOTE | 2023-03-21 13:26 | PT.INTREAT ---
Date of service: 03/21/23 Time of Service: 10:19 PT Notes Visit Reasons: Pneumonia, Hyperosmolar, Hyperglycemia Inpatient Physical Therapy Treatment Note [facility] Date: 03/21/23 PRECAUTIONS: Fall, standard, activity as tolerated SUBJECTIVE: Patient reports feeling better and stronger. Sitting up in recliner, agreeable to therapy. OBJECTIVE: PAIN: None reported BED MOBILITY/TRANSFERS Sit-stand: standby Stand-sit: standby Bed-Chair: standby Chair-bed: standby GAIT Assistive Device: front wheeled walker Weight bearing: full Assist: standby Distance: 100 feet in room Deviation: Cautious steps, reduced stride length, good foot clearance. ASSESSMENT: Patient tolerates therapy well, sitting back in recliner at end of treatment session. PLAN: Continue treatment per plan of care until discharge home with home health services. TREATMENT CODE/TIME: 14172 Gait 24 minutes beginning at 10:19
--- NOTE | 2023-03-21 14:45 | PDOC.CMDIS ---
Date of service: 03/21/23 Time of Service: 14:45 LACE Index Scoring Tool Questions: Length of Stay (in days): 3 Was the patient admitted via the E.D.?: Yes Comorbidities: Cerebrovascular Disease, Diabetes w/o Complication and Mild Liver/Renal Disease E.D. Visits: 3 Answers: Total Score: 14 Risk of Readmission: High Risk Care Management Discharge Plan Reason for Hospitalization: hyperglycemia Discharge Plan: Anticipate Karie will return home with no new services. She will follow up with her community providers and plan of care as prescribed and transport with family. CM will support Karie and assess for discharge needs. Patient/Family Education Needs: review of discharge instructions, activity, diet, limitations, follow up plan, discuss Ask Me Three
--- NOTE | 2023-03-22 09:33 | INDS_ITS ---
Date of service: 03/20/23 PT Notes Visit Reasons: Pneumonia, Hyperosmolar, Hyperglycemia Physical Therapy Inpatient Discharge Summary Date: 03/21/23 Dates of service: 03/19/2023 through 03/21/2023 This is a clinical summary of care provided for the duration of dates listed above. No charge was made in the completion of this documentation. Referring Doctor:? Dr. Duque PT Orders: PT CONSULT: limited ability to ambulate Precautions: fall, standard Patient Profile/Admitting Diagnosis:??Patient admitted 03/19/23 due to hyperglycemia. 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 She recently lost her , whom she cared for prior to his . States that she normally gets around independently, occasionally using a walker if she feels that she needs it. She drives, grocery shops, etc. Admits to 3-4 falls this past year, generally occuring when trying to stand up from a chair. Equipment Owned/DME: FWW, cane Subjective:? NT. See most recent BELTING INSPECTOR notes. Objective:? General Observation: NT. See most recent BELTING INSPECTOR notes. Mental Status: NT. See most recent BELTING INSPECTOR notes. Pain: NT. See most recent BELTING INSPECTOR notes. ROM: Right Upper Extremity: WFL for shoulders, elbows and wrists Left Upper Extremity: WFL for shoulders, elbows and wrists Right Lower Extremity: Hip, knee and ankle motion all WFL Left Lower Extremity: Hip, knee and ankle motion all WFL Strength: Right Upper Extremity: Shoulder flexion 4/5. Biceps 4-/5. Triceps 4-/5. [employer] is weak, but equal. Left Upper Extremity: Shoulder flexion 4/5. Biceps 4-/5. Triceps 4-/5. [employer] is weak, but equal. Right Lower Extremity: Hip flexion 4-/5. Quads 4-/5. HS 3+/5. Ankle DF 4+/5. Left Lower Extremity: Hip flexion 4+/5. Quads 4+/5. HS 4/5. Ankle DF 4+/5. BED MOBILITY/TRANSFERS ? Sit-stand: standby? Stand-sit: standby? Bed-Chair: standby ? Chair-bed: standby ? GAIT? Assistive Device: front wheeled walker? Weight bearing: full Assist: standby? Distance:? 200 feet in room ? Deviation: Cautious steps, reduced stride length, good foot clearance.? Balance:? Static Sitting: normal Dynamic Sitting: good Static Standing: good Dynamic Standing: fair Assessment:??Patient is a 72 year old female referred to physical therapy services with the diagnosis of mobility impairments during hospitalization for medical management of hyperglycemic event.? Patient presents with clinical signs and symptoms consistent with diagnosis, with chronic balance impairments putting her at increased risk for falls. She requires skilled PT intervention to m aximize her safety and mobility during her acute care stay, and will benefit from PT upon discharge to address chronic deficits. She currently demonstrates the following impairment level findings: 1. UE weakness 2. RLE weakness 3. balance impairments 4. h/o falls 5. decreased activity tolerance ? Impairments are contributing to the following functional limitations: 1. unable to tolerate community distance ambulation 2. increased fall risk 3. weakness resulting in decreased safety with transfers Patient is assessed as a? Low 57596? complexity based on the following: History: 72 year old female seen in ICU, presenting with acute on chronic mobility issues with h/o falls. Complicating factors include acute medical issues and multiple health conditions including poorly controlled diabetes. Examination: functional limitations as noted above Presentation: stable Decision Making: low Goals: Goals X1 week 1. Supine-Sit : supervision NOT MET 2. Sit-Supine? : supervision NOT MET 3. Sit-Stand? : supervision NOT MET 4. Stand-Sit? : supervision NOT MET 5. Bed-Chair? : supervision with FWW NOT MET 6. Chair-Bed? : supervision with FWW NOT MET 7. Gait? : supervision with FWW x 100' NOT MET DISCHARGE RECOMMENDATIONS: Home with services : HH PT TREATMENT CODE/TIME: [place] Thank you for the opportunity to participate in the care of this patient. Azra Renee PT, DPT, CLT [facility] [place], [place]
== END 2023-03-21 15:24 | disposition home or self-care (01) | DRG 637 ==
LOC: ER 14:05 → ICU 15:12 → MS 03-20 03:36
PROVIDERS: General Practice; Physician Assistant; Admitting Provider Family Medicine; Emergency Provider Physician Assistant; PCP Family Medicine; Visit Provider Family Medicine
DX: E11.00 Type 2 diabetes mellitus with hyperosmolarity without nonketotic hyperglycemic-hyperosmolar coma (NKHHC) (principal); G93.41 Metabolic encephalopathy; J18.9 Pneumonia, unspecified organism; E78.5 Hyperlipidemia, unspecified; Z86.73 Personal history of transient ischemic attack (TIA), and cerebral infarction without residual deficits; K59.00 Constipation, unspecified; R53.1 Weakness; Z79.4 Long term (current) use of insulin; E03.9 Hypothyroidism, unspecified; R74.01 Elevation of levels of liver transaminase levels; D64.9 Anemia, unspecified; I10 Essential (primary) hypertension; G89.29 Other chronic pain; F32.9 Major depressive disorder, single episode, unspecified; G47.00 Insomnia, unspecified; M54.16 Radiculopathy, lumbar region; I51.89 Other ill-defined heart diseases; Z87.891 Personal history of nicotine dependence; E86.0 Dehydration; Z66 Do not resuscitate
CPT/HCPCS: 36415; 80048; 80053; 82805; 84145; 87040; 87635; 93005; 96365; 97161; 99285; J1650; 71046; 74176; 81003; 81015; 83036; 83605; 83735; 84484; 85025; 93010; 99223; 99232; 99239; J3490

== ENCOUNTER 2023-04-03 15:26 | Outpatient (REF) | payer OTHER, SELFPAY ==
[2023-04-03 17:44] LABS: Anion Gap 5.7 mmol/L (3-11); BUN 23 mg/dL (7-18); CO2 25.3 mmol/L (21.0-32.0); Calcium 8.7 mg/dL (8.5-10.1); Chloride 93 mmol/L (98-107); Estimated GFR 60.61 (mL/min/1.73m2); Glucose 429 mg/dL (74-106); Potassium 4.9 mmol/L (3.5-5.1)
[2023-04-03 18:25] LABS: Sodium 124 mmol/L (136-145)
== END 2023-04-03 15:27 | disposition home or self-care (01) ==
LOC: NCHCN 15:26
PROVIDERS: PCP Family Medicine; Visit Provider Family Medicine
DX: N28.89 Other specified disorders of kidney and ureter (principal)
CPT/HCPCS: 80048

== ENCOUNTER 2023-04-10 10:26 | Outpatient (REF) | payer OTHER, SELFPAY ==
[2023-04-10 18:09] LABS: Calcium 9.3 mg/dL (8.5-10.1); Glucose 309 mg/dL (74-106)
[2023-04-10 18:10] LABS: Anion Gap 9.3 mmol/L (3-11); BUN 24 mg/dL (7-18); CO2 25.7 mmol/L (21.0-32.0); Chloride 94 mmol/L (98-107); Estimated GFR 60.61 (mL/min/1.73m2); Potassium 4.6 mmol/L (3.5-5.1); Sodium 129 mmol/L (136-145)
== END 2023-04-10 10:27 | disposition home or self-care (01) ==
LOC: NCHCN 10:26
PROVIDERS: PCP Family Medicine; Visit Provider Family Medicine
DX: N28.9 Disorder of kidney and ureter, unspecified (principal)
CPT/HCPCS: 80048

== ENCOUNTER 2023-05-16 12:53 | Outpatient (REF) | payer OTHER, SELFPAY ==
[2023-05-16 16:11] LABS: HCT 37.9 % (36.0-46.0); MCH 28.3 pg (27.0-33.0); MCHC 34.3 % (32.0-36.0); MCV 82 fL (80-95); MPV 10.3 fL (8.0-11.0); Platelet Count 267 10^3/uL (130-400); RDW 12.9 % (11.7-14.6); RDW-SD 38.5 fL
[2023-05-16 16:34] LABS: ALT 30 U/L (14-59); AST 33 U/L (15-37); Alkaline Phosphatase 141 U/L (46-116); Anion Gap 7.3 mmol/L (3-11); BUN 17 mg/dL (7-18); Bilirubin, Total 0.3 mg/dL (0.2-1.0); CO2 26.7 mmol/L (21.0-32.0); CREATININE 0.9 mg/dL (0.55-1.02); Chloride 93 mmol/L (98-107); Creatine Kinase 277 U/L (26-192); Estimated GFR 68.77 (mL/min/1.73m2); Glucose 400 mg/dL (74-106); Potassium 4.6 mmol/L (3.5-5.1); Sodium 127 mmol/L (136-145); TSH (W/Ref FT4) 1.31 uIU/mL (0.36-3.74)
[2023-05-16 17:38] LABS: Hemoglobin A1C 12.9 % (<5.7)
== END 2023-05-16 12:54 | disposition home or self-care (01) ==
LOC: NCHCN 12:53
PROVIDERS: PCP Family Medicine; Visit Provider Family Medicine
DX: E11.65 Type 2 diabetes mellitus with hyperglycemia (principal); N18.2 Chronic kidney disease, stage 2 (mild); E03.9 Hypothyroidism, unspecified; E78.5 Hyperlipidemia, unspecified; D64.9 Anemia, unspecified
CPT/HCPCS: 80053; 82550; 85027; 83036; 84443

== ENCOUNTER 2023-06-14 09:01 | Outpatient (REF) | payer OTHER, SELFPAY ==
[2023-06-14 15:34] LABS: Anion Gap 7.7 mmol/L (3-11); BUN 20 mg/dL (7-18); CO2 28.3 mmol/L (21.0-32.0); CREATININE 0.9 mg/dL (0.55-1.02); Calcium 9.2 mg/dL (8.5-10.1); Chloride 96 mmol/L (98-107); Creatine Kinase 96 U/L (26-192); Estimated GFR 68.77 (mL/min/1.73m2); Glucose 365 mg/dL (74-106); Potassium 4.6 mmol/L (3.5-5.1); Sodium 132 mmol/L (136-145)
== END 2023-06-14 09:02 | disposition home or self-care (01) ==
LOC: NCHCN 09:01
PROVIDERS: PCP Family Medicine; Visit Provider Family Medicine
DX: E11.65 Type 2 diabetes mellitus with hyperglycemia (principal); N18.2 Chronic kidney disease, stage 2 (mild); M79.18 Myalgia, other site
CPT/HCPCS: 80048; 82550